=== PATIENT | male | born 1965 ===

== ENCOUNTER 2016-08-06 15:58 | Inpatient (IN) | payer MEDICAID ==
[2016-08-06 16:03] VITALS: BMI 31.0
[2016-08-06] MEDS ORDERED: Levalbuterol 1.25 MG/3 ML Inhal Soln UD IH STA ×2 (16:47)
[2016-08-06] MEDS ORDERED: Ipratropium 0.02% Inhal Soln (0.5 mg/2.5 ml) UD IH STA ×2 (16:47→16:48)
[2016-08-06] MEDS ORDERED: guaiFENesin 200 mg/10 ml Syrup UD PO STA (16:48)
[2016-08-06 17:08] LABS: ADD MANUAL DIFF? NO
[2016-08-06 17:10] LABS: BASO # 0.03 K/mm3 (0.0-2.0); BASO % 0.3 % (0.0-3.0); EOS # 0.3 (0.0-0.7); GRAN # 6.84 (1.4-6.5); GRAN % 72.2 % (50.0-68.0); HEMATOCRIT 38.3 % (42.0-52.0); LYMPH # 1.8 (1.2-3.4); LYMPH % 18.5 % (22.0-35.0); MEAN CELL VOLUME 87.2 fL (80.0-105.0); MEAN CORPUSCULAR HEMOGLOBIN 28.9 pg (25.0-35.0); MEAN CORPUSCULAR HGB CONC 33.2 g/dl (31.0-37.0); MEAN PLATELET VOLUME 9.4 fl (7.0-11.0); MONO # 0.6 (0.1-0.6); PLATELET COUNT 347 10^3/uL (120.0-450.0); RED CELL DISTRIBUTION WIDTH 12.4 % (11.5-14.5); WHITE BLOOD COUNT 9.5 10^3/ul (4.5-11.0)
--- NOTE | 2016-08-06 17:22 | ED PDOC ---
Arrival/HPI - General Chief Complaint: Shortness Of Breath Time Seen by Provider: 08/06/16 16:40 Historian: Patient - History of Present Illness Narrative History of Present Illness (Text): 08/06/16 17:19 Srinivasa Herman is a 50 year old male, with a history of diabetes, hypertension and hyperlipidemia, presents to the emergency department complaining of 2 day duration of shortness of breath associated with mild cough. Patient also complains of mild chest discomfort. Denies fever, chills, headache, dizziness, abdominal pain, nausea, vomiting, diarrhea, lower extremity edema, urinary symptoms or any other complaints at this time. Time/Duration: < week (2 days ) Symptom Onset: Gradual Symptom Course: Unchanged Severity Level: Mild Activities at Onset: Light Past Medical History - Provider Review Nursing Documentation Reviewed: Yes - Infectious Disease Hx of Infectious Diseases: None - Tetanus Immunization Tetanus Immunization: Unknown - Cardiac Hx Cardiac Disorders: No Hx Hypertension: Yes - Pulmonary Hx Chronic Obstructive Pulmonary Disease (COPD): No - Neurological HX Cerebrovascular Accident: No - HEENT Hx HEENT Disorder: Yes Hx Cataracts: Yes - Renal Hx Renal Failure: No - Endocrine/Metabolic Hx Diabetes Mellitus Type 2: Yes - Hematological/Oncological Hx Cancer: No - Integumentary Hx Dermatological Disorder: No - Musculoskeletal/Rheumatological Hx Arthritis: No Hx Rheumatoid Arthritis: No - Gastrointestinal Hx Gastroesophageal Reflux: No - Genitourinary/Gynecological Hx Genitourinary Disorders: No - Psychiatric Hx Substance Use: No - Past Surgical History Past Surgical History: No Previous - Anesthesia Hx Anesthesia: No Hx Anesthesia Reactions: No Hx Malignant Hyperthermia: No - Suicidal Assessment Feels Threatened In Home Enviroment: No Family/Social History - Physician Review Nursing Documentation Reviewed: Yes Family/Social History: No Known Family HX Smoking Status: Former Smoker Hx Alcohol Use: Yes (occasional) Hx Substance Use: No Hx Substance Use Treatment: No Allergies/Home Meds Allergies/Adverse Reactions: Allergies No Known Allergies Allergy (Verified 05/24/16 18:59) Review of Systems - Physician Review All systems were reviewed & negative as marked: Yes - Review of Systems Constitutional: Normal. absent: Fatigue, Fevers Respiratory: SOB, Cough. absent: Sputum Cardiovascular: Chest Pain (chest discomfort ) Gastrointestinal: Normal. absent: Abdominal Pain, Diarrhea, Nausea, Vomiting Genitourinary Male: Normal Neurological: Normal. absent: Headache, Dizziness Psychiatric: Normal Physical Exam Vital Signs Reviewed: Yes Vital Signs Temp Pulse Resp BP Pulse Ox 08/06/16 18:00 91 H 18 142/79 96 08/06/16 16:10 98.3 F 102 H 18 145/83 95 08/06/16 16:00 16 99 Temperature: Afebrile Blood Pressure: Hypertensive Pulse: Regular Respiratory Rate: Normal Appearance: Positive for: Well-Appearing, Non-Toxic, Comfortable Pain Distress: None Mental Status: Positive for: Alert and Oriented X 3 - Systems Exam Head: Present: Atraumatic, Normocephalic Pupils: Present: PERRL Conjunctiva: Present: Normal Respiratory/Chest: Present: Decreased Breath Sounds (air entry decreased with significantly decreased breath sounds at bases bilaterally ). No: Respiratory Distress, Accessory Muscle Use Cardiovascular: Present: Regular Rate and Rhythm, Normal S1, S2. No: Murmurs Abdomen: Present: Normal Bowel Sounds. No: Tenderness, Distention, Peritoneal Signs Neurological: Present: GCS=15, CN II-XII Intact, Speech Normal Skin: Present: Warm, Dry, Normal Color. No: Rashes Psychiatric: Present: Alert, Oriented x 3, Normal Insight, Normal Concentration Medical Decision Making ED Course and Treatment: 08/06/16 17:23 Impression: A 50 year old male who presents to the ed complaining of 2 day duration of shortness of breath associated with mild cough and chest discomfort. Differential Diagnosis include but are not limited to: Pneumonia vs. CHF vs. bronchitis vs. PE Plan: -- EKG -- labs, cardiac enzymes -- Drug screen -- Chest X-ray -- Atrovent -- Robitussin -- Xenopex -- Blood culture -- Urinalysis -- Reassess and disposition Progress Notes: 08/06/16 20:44 Labs show uncontrolled DM but no DKA with elevated BNP at 1210. Elevated d- dimer found; CTA of the chest shows pneumonia and b/L pleural effusions - will treat for pneumonia and CHF - case discussed with Dr. Erwin. Will admit to tele. 08/06/16 20:51 Reviewed radiology, CTA Chest shows: Pulmonary arteries: Bolus timing is suboptimal. There is no central pulmonary embolism to the level of the hilum, beyond which the bolus timing and motion artifact reduces the sensitivity and mid and distal pulmonary emboli cannot be adequately assessed. Aorta: No acute findings. No thoracic aortic aneurysm. Lungs: Perihilar and right upper lobe alveolar infiltrate is subtle. Dependent atelectasis in the bases. Pleural space: Moderate bilateral pleural effusions. Heart: Cardiomegaly. No significant pericardial effusion. No evidence of RV dysfunction. Bones/joints: No acute fracture. No dislocation. Soft tissues: Unremarkable. Lymph nodes: Unremarkable. No enlarged lymph nodes. IMPRESSION: 1. Moderate bilateral pleural effusions. 2. Perihilar and right upper lobe alveolar infiltrate is subtle. 3. Bolus timing is suboptimal. There is no central pulmonary embolism to the level of the hilum, beyond which the bolus timing and motion artifact reduces the sensitivity and mid and distal pulmonary emboli cannot be adequately assessed. 4. Cardiomegaly. Dictated and Authenticated by: Neo Tang MD - Lab Interpretations Lab Results: 08/06/16 16:10 08/06/16 16:10 Lab Results 08/06/16 18:35: Urine Color Yellow, Urine Appearance Clear, Urine pH 6.0, Ur Specific [place] 1.025, Urine Protein 100 H, Urine Glucose (UA) >=1000, Urine Ketones Trace H, Urine Blood Moderate H, Urine Nitrate Negative, Urine Bilirubin Negative, Urine Urobilinogen 0.2, Ur Leukocyte Esterase Negative, Urine RBC 1 - 3, Urine WBC 0 - 2, Ur Epithelial Cells 0 - 2, Urine Bacteria Trace, Urine Other Usperm, Urine Opiates Screen Negative, Urine Methadone Screen Negative, Ur Barbiturates Screen Negative, Ur Phencyclidine Scrn Negative , Ur Amphetamines Screen Negative, U Benzodiazepines Scrn Negative, U Oth Cocaine Metabols Negative, U Cannabinoids Screen Negative 08/06/16 16:10: WBC 9.5, RBC 4.39, Hgb 12.7 L, Hct 38.3 L, MCV 87.2, MCH 28.9, MCHC 33.2, RDW 12.4, Plt Count 347, MPV 9.4, Gran % 72.2 H, Lymph % (Auto) 18.5 L, [place] % (Auto) 6.0, Eos % (Auto) 3.0, Baso % (Auto) 0.3, Gran # 6.84 H, Lymph # 1.8, [place] # 0.6, Eos # 0.3, Baso # 0.03, PT 11.3, INR 1.05, APTT 26.7, D-Dimer , Quantitative 0.84 H, Sodium 134, Potassium 4.3, Chloride 102, Carbon Dioxide 24, Anion Gap 12, BUN 21, Creatinine 1.3, Est GFR ( Amer) > 60, Est GFR ( Non-Af Amer) 59, Random Glucose 379 H* D, Calcium 9.0, Total Bilirubin 0.5, AST 29, ALT 27, Alkaline Phosphatase 70, Lactate Dehydrogenase 420, Total Creatine Kinase 186, Troponin I < 0.01, NT-Pro-B Natriuret Pep 1210 H, Total Protein 6.5 , Albumin 3.4, Globulin 3.1, Albumin/Globulin Ratio 1.1, Lipase 47 I have reviewed the lab results: Yes - RAD Interpretation Radiology Orders: 08/06/16 16:46 CHEST TWO VIEWS (PA/LAT) [RAD] Stat 08/06/16 17:38 ANGIO CHEST PE PROTOCOL [CT] Stat Formwork Carpenter: ED Physician, Radiologist - EKG Interpretation Interpreted by ED Physician: Yes Type: 12 lead EKG - Medication Orders Current Medication Orders: Azithromycin (Zithromax 500mg In Ns) 250 mls @ 250 mls/hr IVPB STAT STA Stop: 08/06/16 21:30 Azithromycin (Zithromax 500mg In Ns) 250 mls @ 167 mls/hr IVPB DAILY MELVIN PRN Reason: Protocol Ceftriaxone Sodium (Rocephin 1 Gram Ivpb) 100 mls @ 100 mls/hr IVPB DAILY MELVIN PRN Reason: Protocol Discontinued Medications Furosemide (Lasix) 40 mg IVP STAT STA Stop: 08/06/16 20:27 Guaifenesin (Robitussin) 400 mg PO ONCE STA Stop: 08/06/16 16:49 Last Admin: 08/06/16 18:28 Dose: 400 MG Sodium Chloride (Sodium Chloride 0.9%) 1,000 mls @ 500 mls/hr IV .Q2H STA Stop: 08/06/16 19:37 Sodium Chloride (Sodium Chloride 0.9%) 1,000 mls @ 1,000 mls/hr IV .Q1H STA Stop: 08/06/16 18:37 Last Admin: 08/06/16 18:28 Dose: 1,000 MLS/HR eMAR Start Stop Document 08/06/16 18:28 EQ (Rec: 08/06/16 18:28 EQ [facility] [id number]) Intravenous Solution Start Date 08/06/16 Start Time 18:28 Ceftriaxone Sodium (Rocephin 1 Gram Ivpb) 100 mls @ 200 mls/hr IVPB STAT STA PRN Reason: Protocol Stop: 08/06/16 20:54 Iodixanol (Visipaque 320 Mg/Ml 100 Ml) Confirm Administered Dose 100 ml IV .STK- MED ONE Stop: 08/06/16 18:55 Ipratropium [place] (Atrovent) 0.5 mg IH STAT STA Stop: 08/06/16 16:48 Last Admin: 08/06/16 18:27 Dose: 0.5 MG Ipratropium [place] (Atrovent) 0.5 mg IH STAT STA Stop: 08/06/16 16:49 Last Admin: 08/06/16 18:27 Dose: 0.5 MG Levalbuterol HCl (Xopenex) 1.25 mg IH STAT STA Stop: 08/06/16 16:48 Last Admin: 08/06/16 18:27 Dose: 1.25 MG Levalbuterol HCl (Xopenex) 1.25 mg IH STAT STA Stop: 08/06/16 16:48 Last Admin: 08/06/16 18:27 Dose: 1.25 MG Methylprednisolone (Solu-Medrol) 125 mg IVP STAT STA Stop: 08/06/16 16:48 Last Admin: 08/06/16 18:27 Dose: 125 MG IVP Administration Document 08/06/16 18:27 EQ (Rec: 08/06/16 18:27 EQ [facility] [id number]) Charges for Administration # of IVP Administrations 1 - Scribe Statement The provider has reviewed the documentation as recorded by the Rubenibe Berta Nava Provider Attestation: All medical record entries made by the Devante were at my direction and personally dictated by me. I have reviewed the chart and agree that the record accurately reflects my personal performance of the history, physical exam, medical decision making, and the department course for this patient. I have also personally directed, reviewed, and agree with the discharge instructions and disposition. Disposition/Present on Arrival - Present on Arrival Any Indicators Present on Arrival: Yes History of DVT/PE: No History of Uncontrolled Diabetes: Yes Urinary Catheter: No History of Decub. Ulcer: No History Surgical Site Infection Following: None - Disposition Have Diagnosis and Disposition been Completed?: Yes Diagnosis: Pneumonia, Uncontrolled diabetes mellitus, Congestive heart failure (CHF) Disposition: HOSPITALIZED Disposition Time: 20:40 Patient Plan: Admission, Telemetry Patient Problems: Current Active Problems Problem Status Diagnosed Congestive heart failure (CHF) Acute Pneumonia Acute Uncontrolled diabetes mellitus Acute Condition: FAIR
[2016-08-06 17:24] LABS: D DIMER 0.84 mg/L FEU (0-0.50); INR 1.05 (0.93-1.08); PARTIAL THROMBOPLASTIN TIME 26.7 Seconds (23.7-30.8)
[2016-08-06 17:30] LABS: ALB/GLOB RATIO 1.1 (1.1-1.8); ALKALINE PHOSPHATASE 70 U/L (38-133); ALT/SGPT 27 U/L (7-56); AST/SGOT 29 U/L (15-59); BILIRUBIN,TOTAL 0.5 mg/dL (0.2-1.3); BLOOD UREA NITROGEN 21 mg/dL (7-21); CARBON DIOXIDE 24 mmol/L (21-33); CHLORIDE 102 mmol/L (98-107); GFR AFRICAN-AMERICAN > 60; LIPASE 47 U/L (23-300); POTASSIUM 4.3 mmol/L (3.6-5.0); SODIUM 134 mmol/L (132-148); TOTAL PROTEIN 6.5 g/dL (5.8-8.3)
[2016-08-06] MEDS ORDERED: Sodium Chloride 0.9% 1,000 ML IV STA ×2 (17:38→17:42)
[2016-08-06 17:43] LABS: TROPONIN I < 0.01 ng/mL
[2016-08-06 18:51] LABS: URINE BILIRUBIN NEGATIVE (NEGATIVE); URINE BLOOD MODERATE (NEGATIVE); URINE GLUCOSE (UA) >=1000 mg/dL (NEGATIVE); URINE KETONE TRACE mg/dL (NEGATIVE); URINE LEUKOCYTE ESTERASE NEGATIVE Leu/uL (NEGATIVE); URINE PROTEIN 100 mg/dL (<30 mg/dL); URINE UROBILINOGEN 0.2 E.U./dL (<1 E.U./dL)
[2016-08-06 18:52] LABS: URINE APPEARANCE CLEAR (CLEAR); URINE COLOR YELLOW (YELLOW)
[2016-08-06] MEDS ORDERED: Iodixanol 320 MG/ML 100 ML BOTTLE IV ONE (18:54)
[2016-08-06 18:55] LABS: URINE BACTERIA TRACE (NEG); URINE EPITHELIAL CELLS 0 - 2 /hpf (0-5); URINE WBC 0 - 2 /hpf (0-6)
[2016-08-06 19:19] LABS: GLUCOSE,RANDOM 379 mg/dL (70-110)
[2016-08-06] MEDS ORDERED: cefTRIAXone 1 gm 100 ML IVPB STA (20:25)
[2016-08-06] MEDS ORDERED: Azithromycin 500 MG in Azithromycin 500MG/NS 250ml 250 ML IVPB STA (20:26)
[2016-08-06] MEDS ORDERED: Azithromycin 500MG/NS 250ml 250 ML IVPB STA (20:31)
[2016-08-06] MEDS ORDERED: Insulin Regular 1 UNITS/0.01 ML ML SC ONE (21:30)
[2016-08-06] MEDS ORDERED: Albuterol-Ipratrop 3 mg / 0.5 (3 ml) UD IH PRN (21:32)
[2016-08-06] MEDS ORDERED: guaiFENesin 200 mg/10 ml Syrup UD PO PRN (21:32)
--- NOTE | 2016-08-06 22:10 | CP.PCM.HP ---
<FabricioeddyOsmany - Last Filed: 08/06/16 22:35> History of Present Illness - History of Present Illness History of Present Illness: cc: Shortness of breath HPI: Patient is a 50yo male with past medical history of hypertension, hyperlipidemia and diabetes mellitus type 2 that presents c/o shortness of breath for the past 3 days. Patient reports that the shortness of breath is associated with a nonproductive cough that has made it difficult for him to sleep at night. He also reported some mild chest discomfort and palpitations that started on Sunday but had since resolved. Patient stated that he tried using cough syrup but it provided minimal relief. Patient denied fever, chills, nausea, vomitting, abdominal pain, focal weakness, numbness, tingling, sick contacts, recent travel. On arrival to the ED, patient's vitals were as follows : temperature 98.3F, heart rate 102bpm, blood pressure 145/83, RR 18, O2 sat 95 % on room air. Labs were notable for a d-dimer of 0.84, NT-proBNP of 1210 and glucose of 379. A CTA was done and revealed moderate bilateral pleural effusions , perihilar and RUL alveolar infiltrate, no apparent central PE and cardiomegaly. An echocardiogram from 05/16/2016 was reviewed and revealed an LVEF of 52%. 12 point ROS as per HPI above otherwise negative PMHx: DM2, HTN, HLD PSHx: Denied Family Hx: Mother: ID; Father: DM, HTN Social Hx: Denied tobacco, alcohol and illicit drug use; however, prior records indicate he was a former smoker and drinker; Allergies: NKDA Present on Admission - Present on Admission Any Indicators Present on Admission: Yes History of Uncontrolled Diabetes: Yes Past Patient History - Infectious Disease Hx of Infectious Diseases: None - Tetanus Immunizations Tetanus Immunization: Unknown - Past Social History Smoking Status: Former Smoker - CARDIAC Hx Cardiac Disorders: No Hx Hypertension: Yes - PULMONARY Hx Chronic Obstructive Pulmonary Disease (COPD): No - NEUROLOGICAL HX Cerebrovascular Accident: No - HEENT Hx HEENT Problems: Yes Hx Cataracts: Yes - RENAL Hx Renal Failure: No - ENDOCRINE/METABOLIC Hx Diabetes Mellitus Type 2: Yes - HEMATOLOGICAL/ONCOLOGICAL Hx Cancer: No - INTEGUMENTARY Hx Dermatological Problems: No - MUSCULOSKELETAL/RHEUMATOLOGICAL Hx Arthritis: No Hx Rheumatoid Arthritis: No - GASTROINTESTINAL Hx Gastroesophageal Reflux: No - GENITOURINARY/GYNECOLOGICAL Hx Genitourinary Disorders: No - PSYCHIATRIC Hx Substance Use: No - SURGICAL HISTORY Hx Surgeries: No - ANESTHESIA Hx Anesthesia: No Hx Anesthesia Reactions: No Hx Malignant Hyperthermia: No Meds Allergies/Adverse Reactions: Allergies Allergy/AdvReac Type Severity Reaction Status Date / Time No Known Allergies Allergy Verified 05/24/16 18:59 Physical Exam - Constitutional Appears: No Acute Distress - Head Exam Head Exam: ATRAUMATIC, NORMAL INSPECTION, NORMOCEPHALIC - Eye Exam Eye Exam: EOMI, PERRL. absent: Conjunctival injection, Scleral icterus - ENT Exam ENT Exam: Mucous Membranes Moist - Neck Exam Neck exam: Positive for: Normal Inspection. Negative for: Lymphadenopathy, Tenderness, Thyromegaly - Respiratory Exam Respiratory Exam: Decreased Breath Sounds (decreased breath sounds at lung bases bilaterally), NORMAL BREATHING PATTERN. absent: Chest Wall Tenderness, Rales, Rhonchi, Wheezes - Cardiovascular Exam Cardiovascular Exam: Tachycardia, +S1, +S2. absent: Clicks, Gallop, JVD, Rubs - GI/Abdominal Exam GI & Abdominal Exam: Distended, Normal Bowel Sounds, Soft. absent: Firm, Guarding, Rebound, Tenderness - Extremities Exam Extremities exam: Positive for: normal inspection. Negative for: calf tenderness, pedal edema, tenderness - Neurological Exam Neurological exam: Alert, CN II-XII Intact, Oriented x3 - Psychiatric Exam Psychiatric exam: Normal Affect, Normal Mood - Skin Skin Exam: Dry, Intact, Normal Color, Warm Results - Vital Signs Recent Vital Signs: Last Vital Signs Temp 98.3 F 08/06/16 16:10 Pulse 91 H 08/06/16 18:00 Resp 18 08/06/16 18:00 BP 142/79 08/06/16 18:00 Pulse Ox 96 08/06/16 18:00 - Labs Result Diagrams: 08/06/16 16:10 08/06/16 16:10 Labs: Laboratory Results - last 24 hr 08/06/16 08/06/16 16:10 18:35 WBC 9.5 RBC 4.39 Hgb 12.7 L Hct 38.3 L MCV 87.2 MCH 28.9 MCHC 33.2 RDW 12.4 Plt Count 347 MPV 9.4 Gran % 72.2 H Lymph % (Auto) 18.5 L [place] % (Auto) 6.0 Eos % (Auto) 3.0 Baso % (Auto) 0.3 Gran # 6.84 H Lymph # 1.8 [place] # 0.6 Eos # 0.3 Baso # 0.03 PT 11.3 INR 1.05 APTT 26.7 D-Dimer, Quantitative 0.84 H Sodium 134 Potassium 4.3 Chloride 102 Carbon Dioxide 24 Anion Gap 12 BUN 21 Creatinine 1.3 Est GFR ( Amer) > 60 Est GFR (Non-Af Amer) 59 Random Glucose 379 H* D Calcium 9.0 Total Bilirubin 0.5 AST 29 ALT 27 Alkaline Phosphatase 70 Lactate Dehydrogenase 420 Total Creatine Kinase 186 Troponin I < 0.01 NT-Pro-B Natriuret Pep 1210 H Total Protein 6.5 Albumin 3.4 Globulin 3.1 Albumin/Globulin Ratio 1.1 Lipase 47 Urine Color Yellow Urine Appearance Clear Urine pH 6.0 Ur Specific [place] 1.025 Urine Protein 100 H Urine Glucose (UA) >=1000 Urine Ketones Trace H Urine Blood Moderate H Urine Nitrate Negative Urine Bilirubin Negative Urine Urobilinogen 0.2 Ur Leukocyte Esterase Negative Urine RBC 1 - 3 Urine WBC 0 - 2 Ur Epithelial Cells 0 - 2 Urine Bacteria Trace Urine Other Usperm Urine Opiates Screen Negative Urine Methadone Screen Negative Ur Barbiturates Screen Negative Ur Phencyclidine Scrn Negative Ur Amphetamines Screen Negative U Benzodiazepines Scrn Negative U Oth Cocaine Metabols Negative U Cannabinoids Screen Negative Assessment & Plan - Assessment and Plan (Free Text) Assessment: 50yo male with history of hypertension, hyperlipidemia and diabetes mellitus type 2 presents c/o shortness of breath and nonproductive cough for past 3 days. Plan: 1. Shortness of breath likely 2/2 CAP and mild CHF exacerbation -afebrile, no leukocytosis -NT-ProBNP 1210; Troponin negative x1, will trend -CTA reviewed; no evidence of PE, bilateral pleural effusions, RUL infiltrate -Echocardiogram from 05/2016 reviewed; LVEF 52% -procalcitonin pending -blood,urine and sputum cultures pending -Continue with Rocephin/azithromycin for CAP -Continue with lasix 40mg qD -Continue with robitussin/duoneb PRN 2. Hypertension -Continue with home med lisinopril 3. Hyperlipidemia -Continue with home med lipitor 4. DM type 2 -Humulin med dose ISS -Consistent carb diet -Fingersticks ACHS 5. GI/DVT prophylaxis -Protonix/lovenox Patient seen and case discussed with attending, Dr. Erwin - Date & Time Date: 08/06/16 Time: 22:22 <Salomón Erwin - Last Filed: 08/07/16 05:32> Results - Vital Signs Recent Vital Signs: Last Vital Signs Temp 98.3 F 08/06/16 16:10 Pulse 89 08/07/16 03:56 Resp 17 08/07/16 03:56 BP 156/86 H 08/07/16 03:56 Pulse Ox 98 08/07/16 03:56 - Labs Result Diagrams: 08/06/16 16:10 08/06/16 16:10 Labs: Laboratory Results - last 24 hr 08/06/16 08/06/16 23:30 23:50 Lactic Acid 3.5 H Lactate Dehydrogenase 398 Total Creatine Kinase 163 Troponin I < 0.01 Attending/Attestation - Attestation I have personally seen and examined this patient.: Yes I have fully participated in the care of the patient.: Yes I have reviewed all pertinent clinical information: Yes Notes (Text): 08/07/16 05:29 Patient was seen when he was in bed # 20 in the ER. Agree with history , physical examination ,assessment and plan. Patient is obese,gives history of bilateral knee arthritis, history of GERD , history of TIA in past May.
[2016-08-06] MEDS ORDERED: Insulin Regular 1 UNITS/0.01 ML ML SC STA (22:12)
[2016-08-06] MEDS: Insulin Reg-MEDIUM-Coverage SC SCH (23:53)
[2016-08-07 00:37] LABS: TROPONIN I < 0.01 ng/mL
[2016-08-07] MEDS ORDERED: Insulin Regular 1 UNITS/0.01 ML ML SC STA (01:15)
[2016-08-07 06:26] LABS: ADD MANUAL DIFF? NO
[2016-08-07 06:30] LABS: BASO # 0.01 K/mm3 (0.0-2.0); BASO % 0.1 % (0.0-3.0); GRAN # 11.96 (1.4-6.5); GRAN % 90.4 % (50.0-68.0); LYMPH # 0.9 (1.2-3.4); LYMPH % 6.6 % (22.0-35.0); MEAN CELL VOLUME 84.8 fL (80.0-105.0); MEAN CORPUSCULAR HEMOGLOBIN 29.7 pg (25.0-35.0); MEAN PLATELET VOLUME 9.3 fl (7.0-11.0); MONO # 0.4 (0.1-0.6); MONO % 2.9 % (1.0-6.0); PLATELET COUNT 355 10^3/uL (120.0-450.0); RED CELL DISTRIBUTION WIDTH 12.2 % (11.5-14.5); WHITE BLOOD COUNT 13.2 10^3/ul (4.5-11.0)
[2016-08-07 07:02] LABS: ALKALINE PHOSPHATASE 81 U/L (38-133); ALT/SGPT 22 U/L (7-56); AST/SGOT 36 U/L (15-59); BILIRUBIN,TOTAL 0.5 mg/dL (0.2-1.3); BLOOD UREA NITROGEN 36 mg/dL (7-21); CALCIUM 9.2 mg/dL (8.4-10.5); CARBON DIOXIDE 20 mmol/L (21-33); CHLORIDE 105 mmol/L (98-107); GFR AFRICAN-AMERICAN > 60; GLUCOSE,RANDOM 277 mg/dL (70-110); MAGNESIUM 1.6 mg/dL (1.7-2.2); PHOSPHOROUS 3.4 mg/dL (2.5-4.5); POTASSIUM 4.4 mmol/L (3.6-5.0); SODIUM 139 mmol/L (132-148); TOTAL PROTEIN 7.1 g/dL (5.8-8.3)
[2016-08-07 07:09] LABS: TROPONIN I 0.02 ng/mL
--- NOTE | 2016-08-07 09:07 | RAD ---
HISTORY: sob COMPARISON: No prior. TECHNIQUE: Chest PA and lateral FINDINGS: LUNGS: No active pulmonary disease. PLEURA: No significant pleural effusion identified. No pneumothorax apparent. CARDIOVASCULAR: Normal. OSSEOUS STRUCTURES: No significant abnormalities. VISUALIZED UPPER ABDOMEN: Normal. OTHER FINDINGS: None. IMPRESSION: No active disease.
--- NOTE | 2016-08-07 09:52 | CT ---
PROCEDURE: CT Chest with contrast (Pulmonary Angiogram) HISTORY: sob - r/o PE COMPARISON: None available. TECHNIQUE: Axial computed tomography images were obtained of the chest in the pulmonary arterial phase of enhancement. Coronal and sagittal reformatted images were created and reviewed. Intravenous contrast dose: 100 cc of Visipaque Radiation dose: Total exam DLP = 664 mGy-cm. FINDINGS: PULMONARY ARTERIES: Bolus timing is less than optimal. There are no central emboli seen. Small distal emboli cannot be excluded AORTA: No acute findings. No thoracic aortic aneurysm. LUNGS: Minimal bibasilar consolidation adjacent to pleural effusions PLEURAL SPACES: Small bilateral pleural effusions are seen HEART: Unremarkable. No cardiomegaly. No significant pericardial effusion. LYMPH NODES: No lymphadenopathy. BONES, CHEST WALL: Unremarkable. No fracture or destructive lesion OTHER FINDINGS: The report concurs with the preliminary [facility] report IMPRESSION: No evidence of pulmonary embolus. Small bilateral pleural effusions
[2016-08-07] MEDS: Enoxaparin 40 mg Syringe SC SCH (10:59)
[2016-08-07] MEDS: Azithromycin 500MG/NS 250ml 250 ML IVPB SCH (11:00)
[2016-08-07] MEDS: Insulin Reg-MEDIUM-Coverage SC SCH ×4 (11:04→22:30)
[2016-08-07] MEDS ORDERED: Insulin Regular 1 UNITS/0.01 ML ML ONE (11:04)
--- NOTE | 2016-08-07 11:59 | CARD ---
APPROVED REPORT EKG Measurement Heart [id number] <Conclusion> Sinus tachycardia Possible Left atrial enlargement Nonspecific T wave abnormality Abnormal ECG
[2016-08-07 13:06] LABS: ARTERIAL BLOOD GAS HCO3 17.7 mmol/L (21-28); ARTERIAL BLOOD GAS O2 CAPACITY 18.2 mL/dl (16-24); ARTERIAL BLOOD GAS O2 CONTENT 17.5 ML/dl (15-23); ARTERIAL BLOOD GAS PH 7.44 (7.35-7.45); ARTERIAL BLOOD HGB O2 SAT 93.9 % (95.0-98.0); CARBOXYHEMOGLOBIN 1.8 % (0.5-1.5); HHB 3.6 % (0-5); METHEMOGLOBIN 0.7 % (0.0-3.0)
[2016-08-07] MEDS: cefTRIAXone 1 gm 100 ML IVPB SCH (13:15)
--- NOTE | 2016-08-07 15:24 | CP.PCM.PN ---
<Zhanna Nieves - Last Filed: 08/07/16 15:58> Subjective - Date & Time of Evaluation Date of Evaluation: 08/07/16 Time of Evaluation: 12:00 - Subjective Subjective: Hospitalist progress note for Dr. Bell Pt s/e at bedside in the ER this AM. Patient states that his SOB is improved since lasix was administered in the ED. Patient was observed ambulating without any distress, instability, or dysfunctional gait. Patient reports persistent cough which is improving, chronic numbness and tingling in his lower extremities BL, but denies any chest pain, palpitations, dizziness, light headedness, fevers, chills, night sweats, calf pain or swelling, nausea, vomiting, abdominal pain, or any other symptoms. Admits that when he checks his blood glucose levels at home he is sometimes over 300 after eating a meal. He is supposed to see his PMD, Dr. Corona Moyer, to address his insulin regimen later this month. Also admitted that he used to use an inhaler after an episode of bronchitis for which he was hospitalized years ago, though there is not record of this event in his chart. Objective - Vital Signs/Intake and Output Vital Signs (last 24 hours): Temp Pulse Resp BP Pulse Ox 98.3 F 108 H 17 166/100 H 97 08/06/16 16:10 08/07/16 11:37 08/07/16 11:37 08/07/16 11:37 08/07/16 11:37 - Medications Medications: Current Medications Albuterol/Ipratropium (Duoneb 3 Mg/0.5 Mg (3 Ml) Ud) 3 ml IH [id number] PRN PRN Reason: Shortness of Breath Aspirin (Aspirin Chewable) 81 mg PO DAILY [facility] Last Admin: 08/07/16 10:57 Dose: 81 mg Atorvastatin Calcium (Lipitor) 40 mg PO DIN [facility] Enoxaparin Sodium (Lovenox) 40 mg SC DAILY [facility] PRN Reason: Protocol Last Admin: 08/07/16 10:59 Dose: 40 mg Furosemide (Lasix) 40 mg IVP DAILY [facility] Last Admin: 08/07/16 11:01 Dose: 40 mg Guaifenesin (Robitussin) 200 mg PO Q4H PRN PRN Reason: Cough and congestion Last Admin: 08/07/16 11:06 Dose: 200 mg Hydralazine HCl (Apresoline) 10 mg IVP STAT [facility] Last Admin: 08/06/16 22:39 Dose: 10 mg Azithromycin (Zithromax 500mg In Ns) 250 mls @ 167 mls/hr IVPB DAILY [facility] PRN Reason: Protocol Last Admin: 08/07/16 11:00 Dose: 167 mls/hr Ceftriaxone Sodium (Rocephin 1 Gram Ivpb) 100 mls @ 100 mls/hr IVPB DAILY [facility] PRN Reason: Protocol Last Admin: 08/07/16 13:15 Dose: 100 mls/hr Insulin Detemir (Levemir) 14 unit SC BID [facility] Insulin Human Regular (Humulin R Med) 0 units SC ACHS [facility] PRN Reason: Protocol Last Admin: 08/07/16 11:38 Dose: 7 units Lisinopril (Zestril) 40 mg PO DAILY [facility] Last Admin: 08/07/16 11:36 Dose: 40 mg Pantoprazole Sodium (Protonix Inj) 40 mg IVP DAILY [facility] Last Admin: 08/07/16 11:00 Dose: 40 mg - Labs Labs: 08/07/16 06:00 08/07/16 06:00 PT 11.3 Seconds (9.9-11.8) 08/06/16 16:10 INR 1.05 (0.93-1.08) 08/06/16 16:10 APTT 26.7 Seconds (23.7-30.8) 08/06/16 16:10 - Constitutional Appears: Well, Non-toxic, No Acute Distress - Head Exam Head Exam: ATRAUMATIC - Eye Exam Eye Exam: Normal appearance - ENT Exam ENT Exam: Mucous Membranes Moist, Normal Oropharynx - Respiratory Exam Respiratory Exam: Decreased Breath Sounds (lower lung field BL), NORMAL BREATHING PATTERN. absent: Accessory Muscle Use, Wheezes, Respiratory Distress - Cardiovascular Exam Cardiovascular Exam: Tachycardia, RRR, +S1, +S2 - GI/Abdominal Exam GI & Abdominal Exam: Soft. absent: Distended, Tenderness - Extremities Exam Extremities Exam: absent: Calf Tenderness, Pedal Edema, Tenderness Additional comments: Mild cellulitis and erythema of the lower leg greater on the right than the left - Back Exam Back Exam: absent: CVA tenderness (L), CVA tenderness (R) - Neurological Exam Neurological Exam: Alert, Awake, Oriented x3 - Psychiatric Exam Psychiatric exam: Normal Affect, Normal Mood - Skin Skin Exam: Intact, Normal Color, Warm Assessment and Plan - Assessment and Plan (Free Text) Assessment: 50yo male with history of hypertension, hyperlipidemia and diabetes mellitus type 2 presents c/o shortness of breath and nonproductive cough for past 3 days. Plan: 1. Shortness of breath due to CHF exacerbation vs pneumonia vs PE -afebrile, tachycardic -WBC increased to 13.2 up from 9.5 yesterday -NT-ProBNP 1210; Troponin negative x3 -CTA reviewed Final report: no evidence of PE, bilateral pleural effusions, no other active disease -Echocardiogram from 05/2016 reviewed; LVEF 52% -ABG this afternoon: pH: 7.44, CO2 26, PO2 74, HCO3: 17.1 -procalcitonin not elevated -blood, urine and sputum cultures pending, legionella antigen negative -Continue with Rocephin/azithromycin for CAP -Continue with lasix 40mg qD -Continue with robitussin/duoneb PRN -Cardiology consulted for possible CHF 2. Hyperglycemia, possible DKA -Lactic acid 3.5, repeat LA pending -anion gap 14 -glucose 379 at admit, up to 435 overnight, 277 this AM -ABG this afternoon: pH: 7.44, CO2 26, PO2 74, HCO3: 17.1 -Diabetic control as outlined below -repeat BMP pending 3. DVT -elevated d-dimer -BL LE US pending 4. Hypertension -Continue with home med lisinopril 5. Hyperlipidemia -Continue with home med lipitor 6. DM type 2 -Humulin med dose ISS -levemir 14 BID -Consistent carb diet -Fingersticks ACHS 7. Hypomagnesemia -MG 1.6 -Mg sulfate supplementation -repeat Mg tomorrow AM 7. GI/DVT prophylaxis -Protonix/lovenox <Ray EASTON,Cameron - Last Filed: 08/08/16 07:27> Objective - Vital Signs/Intake and Output Vital Signs (last 24 hours): Temp Pulse Resp BP Pulse Ox 98 F 100 H 18 150/93 H 98 08/08/16 06:00 08/08/16 06:00 08/08/16 06:00 08/08/16 06:00 08/08/16 00:01 - Medications Medications: Current Medications Albuterol/Ipratropium (Duoneb 3 Mg/0.5 Mg (3 Ml) Ud) 3 ml IH [id number] PRN PRN Reason: Shortness of Breath Aspirin (Aspirin Chewable) 81 mg PO DAILY [facility] Last Admin: 08/07/16 10:57 Dose: 81 mg Atorvastatin Calcium (Lipitor) 40 mg PO DIN [facility] Last Admin: 08/07/16 18:03 Dose: 40 mg Diphenhydramine HCl (Benadryl) 25 mg PO HS PRN PRN Reason: Insomnia Last Admin: 08/08/16 01:46 Dose: 25 mg Enoxaparin Sodium (Lovenox) 40 mg SC DAILY [facility] PRN Reason: Protocol Last Admin: 08/07/16 10:59 Dose: 40 mg Furosemide (Lasix) 40 mg IVP DAILY [facility] Last Admin: 08/07/16 11:01 Dose: 40 mg Guaifenesin (Robitussin) 200 mg PO Q4H PRN PRN Reason: Cough and congestion Last Admin: 08/07/16 11:06 Dose: 200 mg Hydralazine HCl (Apresoline) 10 mg IVP STAT [facility] Last Admin: 08/07/16 22:30 Dose: Not Given Azithromycin (Zithromax 500mg In Ns) 250 mls @ 167 mls/hr IVPB DAILY [facility] PRN Reason: Protocol Last Admin: 08/07/16 11:00 Dose: 167 mls/hr Ceftriaxone Sodium (Rocephin 1 Gram Ivpb) 100 mls @ 100 mls/hr IVPB DAILY [facility] PRN Reason: Protocol Last Admin: 08/07/16 13:15 Dose: 100 mls/hr Insulin Detemir (Levemir) 14 unit SC BID [facility] Last Admin: 08/07/16 18:02 Dose: 14 unit Insulin Human Regular (Humulin R Med) 0 units SC ACHS [facility] PRN Reason: Protocol Last Admin: 08/07/16 22:30 Dose: 1 units Lisinopril (Zestril) 40 mg PO DAILY [facility] Last Admin: 08/07/16 11:36 Dose: 40 mg Pantoprazole Sodium (Protonix Inj) 40 mg IVP DAILY [facility] Last Admin: 08/07/16 11:00 Dose: 40 mg - Labs Labs: 08/08/16 06:40 08/07/16 15:55 PT 11.3 Seconds (9.9-11.8) 08/06/16 16:10 INR 1.05 (0.93-1.08) 08/06/16 16:10 APTT 26.7 Seconds (23.7-30.8) 08/06/16 16:10 Attending/Attestation - Attestation I have personally seen and examined this patient.: Yes I have fully participated in the care of the patient.: Yes I have reviewed all pertinent clinical information, including history, physical exam and plan: Yes Notes (Text): Patient was seen and examined with medical care manager . Patient dyspnea is likely due to diastolic CHF exacerbation, was given IV lasix , already started feeling better.Procalcitonin level is normal, antibiotics can be discontinued if cultures are negative and lactic acid is back to normal. Patient is not in DKA, has uncontrol DM as he did not get his morning Levemir, CO2 is normal, no acidosis on abg. Lactic acid was high, etiology unclear, does not seem to sepstic, will continue holding Metfornin.Repeat lactic acid level is back to normal. Management plan was discussed in detail with patient Education was provided.
[2016-08-07] MEDS ORDERED: Sodium Chloride 0.9% 1,000 ML IV SCH (15:30)
[2016-08-07] MEDS ORDERED: Magnesium Sulfate 2 GM in Sodium Chloride 0.9% 100 ML IVPB ONE (16:21)
[2016-08-07] MEDS: Insulin Detemir 100 units/ml Vial (Levemir) SC SCH (18:02)
[2016-08-07 18:52] LABS: BLOOD UREA NITROGEN 35 mg/dL (7-21); CARBON DIOXIDE 22 mmol/L (21-33); CHLORIDE 102 mmol/L (98-107); GFR AFRICAN-AMERICAN > 60; GLUCOSE,RANDOM 292 mg/dL (70-110); SODIUM 135 mmol/L (132-148)
--- NOTE | 2016-08-07 21:19 | US ---
HISTORY: Leg pain and swelling. Evaluate for DVT PHYSICIAN(S): Srinivasan Rodríguez MD. TECHNIQUE: Duplex sonography and color-flow Doppler with graded compression were used to evaluate the deep venous systems of both lower extremities. FINDINGS: The visualized deep venous systems of both lower extremities are sonographically normal and compressible. Normal wave forms and augmentation are seen. There is no sonographic evidence for deep venous thrombosis in the visualized segments of both lower extremities. IMPRESSION: No sonographic evidence for deep venous thrombosis in the visualized segments of both lower extremities.
[2016-08-08 07:01] LABS: ADD MANUAL DIFF? NO
[2016-08-08 07:07] LABS: BASO # 0.03 K/mm3 (0.0-2.0); BASO % 0.3 % (0.0-3.0); EOS # 0.4 (0.0-0.7); EOS % 4.1 % (1.5-5.0); GRAN % 63.7 % (50.0-68.0); HEMATOCRIT 37.7 % (42.0-52.0); LYMPH # 2.5 (1.2-3.4); MEAN CELL VOLUME 85.9 fL (80.0-105.0); MEAN CORPUSCULAR HEMOGLOBIN 29.4 pg (25.0-35.0); MEAN CORPUSCULAR HGB CONC 34.2 g/dl (31.0-37.0); MEAN PLATELET VOLUME 9.5 fl (7.0-11.0); MONO % 8.9 % (1.0-6.0); PLATELET COUNT 348 10^3/uL (120.0-450.0); RED CELL DISTRIBUTION WIDTH 12.6 % (11.5-14.5); WHITE BLOOD COUNT 10.7 10^3/ul (4.5-11.0)
[2016-08-08 07:24] LABS: ALKALINE PHOSPHATASE 73 U/L (38-133); ALT/SGPT 22 U/L (7-56); AST/SGOT 27 U/L (15-59); BILIRUBIN,TOTAL 0.6 mg/dL (0.2-1.3); BLOOD UREA NITROGEN 38 mg/dL (7-21); CALCIUM 8.4 mg/dL (8.4-10.5); CARBON DIOXIDE 23 mmol/L (21-33); CHLORIDE 105 mmol/L (98-107); CHOLESTEROL 173 mg/dL (130-200); GFR AFRICAN-AMERICAN > 60; GLUCOSE,RANDOM 232 mg/dL (70-110); MAGNESIUM 2.2 mg/dL (1.7-2.2); PHOSPHOROUS 4.2 mg/dL (2.5-4.5); SODIUM 137 mmol/L (132-148); TOTAL PROTEIN 6.2 g/dL (5.8-8.3)
--- NOTE | 2016-08-08 08:05 | CON ---
DATE: 08/07/2016 REASON FOR CONSULTATION: Shortness of breath, cardiac evaluation. BRIEF CLINICAL HISTORY: This is a 50-year-old male with past medical history significant for hyperte nsion, hyperlipidemia, diabetes, obesity, came in with 2-3 days history of shortness of breath, cough ing and bringing some phlegm, unable to lay flat and gets short winded. CAT scan was done and reveal ed moderate bilateral pleural effusion, perihilar right upper lobe infiltrate. The patient denies an y chest pain, shortness of breath, any palpitation. PAST MEDICAL HISTORY: Significant for diabetes, hypertension, hyperlipidemia. SOCIAL HISTORY: Denies any smoking. Denies any history of alcohol abuse. Used to smoke a very long time, ____ years ago quit. On disability. Not working now. 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 FAMILY HISTORY: Significant for coronary artery disease, hypertension, hyperlipidemia. ALLERGIES: No known drug allergy. CURRENT MEDICATIONS: The patient is taking at home lisinopril 40 mg, insulin 14 units, atorvastatin 40, aspirin 81 mg. PREVIOUS CARDIAC WORKUP: The patient had echocardiography done on 05/16/2016 that showed ejection fr action 52%, read as normal; diastolic dysfunction, normal mitral valve structure, mild tricuspid regu rgitation, right ventricular systolic pressure of 32. The right ventricle shows normal size, normal thickness. ____ IMPRESSION: Possible pneumonia, possible pleural effusion. Cannot rule out underlying coronary artery disease because of multiple risk factors for coronary artery disease. ____ REVIEW OF SYSTEMS: As per HPI. PHYSICAL EXAMINATION: VITAL SIGNS: Temperature afebrile, heart rate 108, blood pressure is 164/100. HEENT: PERRLA. Extraocular muscles intact. NECK: Supple. No carotid bruits. No thyromegaly. CHEST: Clear to auscultation. HEART: S1, S2 regular. ABDOMEN: Soft. EXTREMITIES: Clubbing and cyanosis negative. BLOOD WORKUP: WBC 13.2, hemoglobin 13.3, hematocrit 38, platelet count 355. Chemistry shows sodium 130, potassium 4.____, chloride 105, carbon dioxide 20, anion gap of 15, BUN 36, creatinine 1.4. Tro ponin 0.01. EKG shows normal sinus pauses, sinus tachycardia. IMPRESSION: Diabetes, hypertension, hyperlipidemia, obesity, body mass index 31 kg/m2. Normal echoc ardiogram, ejection fraction preserved. Pleural effusion and pulmonary infiltrate. WBC elevated. RECOMMENDATIONS: Will give broad spectrum antibiotic, give gentle diuretics, beta brandy, control b lood pressure. DVT prophylaxis. Will follow. Considered a stress test in a day or 2 when the patie nt is stable, probably Sunday. Will follow with you. Thank you, Dr. Ureña, for providing the opportunity in taking care of the patient. Will get a stress test when the patient is relatively stable, and he may get better and get more diuresis so LV functio n can be assessed. Admitting BNP yesterday was 1210, but will repeat in the morning lipid profile, T SH, hemoglobin A1c. Thank you, Dr. Ureña, for providing us the opportunity in taking care of this patient. Cameron Yoo MD cc: [id number] TT: 08/07/2016 17:39:27 Confirmation # [id number] Dictation # [id number] mn
[2016-08-08] MEDS: Insulin Reg-MEDIUM-Coverage SC SCH ×4 (08:19→22:00)
[2016-08-08] MEDS: Enoxaparin 40 mg Syringe SC SCH (09:24)
[2016-08-08] MEDS: Insulin Detemir 100 units/ml Vial (Levemir) SC SCH ×2 (09:28→17:23)
[2016-08-08] MEDS: cefTRIAXone 1 gm 100 ML IVPB SCH (09:29)
[2016-08-08] MEDS: Azithromycin 500MG/NS 250ml 250 ML IVPB SCH (09:30)
--- NOTE | 2016-08-08 10:58 | PN ---
DATE: 08/08/2016 REASON FOR CONSULTATION: Shortness of breath, cardiac evaluation. BRIEF CLINICAL HISTORY: A 50-year-old male with past medical history significant for hypertension, h yperlipidemia, diabetes, obesity, came in with a complaint of 2-3 days of shortness of breath, coughi ng, bringing some phlegm. The patient unable to lie flat on the bed. CAT scan revealed moderate [place] ateral pleural effusion, perihilar right upper lobe infiltrate. The patient is currently on Lasix an d antibiotic, feels better. PHYSICAL EXAMINATION: VITAL SIGNS: Temperature afebrile, heart rate 95, blood pressure 150/93. HEENT: PERRLA. Extraocular muscles intact. NECK: Supple. No carotid bruits. No thyromegaly. CHEST: Clear to auscultation. HEART: S1, S2 regular. ABDOMEN: Soft. EXTREMITIES: Clubbing and cyanosis negative. LABORATORY DATA: Blood workup as follows: WBC 10.7, hemoglobin 12.9, hematocrit 37.7 and platelet c ount 348. Chemistry shows sodium 130, potassium 4, chloride 105, carbon dioxide 23, anion gap of 13, BUN 38, creatinine 1.3. BNP 1470. Troponin negative. IMPRESSION: So far, no evidence of acute coronary syndrome. Bilateral, pleural effusion, pulmonary infiltrate, pneumonia, diabetes, hypertension, hyperlipidemia, obesity, increased body mass index. The patient had echocardiography 05/16/2016 showed ejection fraction 52% with normal left ventricular function, diastolic dysfunction, normal mitral valve area, ____, mild tricuspid regurgitation, right ventricular systolic pressure of 32. Elevated blood pressure, diabetes, hypertension, hyperlipidemia , pneumonia, pleural effusion. RECOMMENDATION: Continue IV Lasix. Continue antibiotic. When the patient's breathing improves, con supervisor press room stress test in a day or 2. Continue DVT prophylaxis. Continue atorvastatin. Magnesium was ontiveros pplemented yesterday. Repeat the chest x-ray today. We will follow with you. Probably in a day or 2, we will schedule a stress test because of multiple risk factors for coronary artery disease and ri sk stratification. We will do a stress test probably on and we will repeat chest x-ray toda y, PA and lateral. Continue IV Lasix. Continue antibiotic. Thank you, Dr. Ureña, for providing us the opportunity in taking care of the patient. Cameron Yoo MD cc: [id number] TT: 08/08/2016 10:58:10 Confirmation # [id number] Dictation # [id number] tn
--- NOTE | 2016-08-08 13:29 | CP.PCM.PN ---
<JeremyGris - Last Filed: 08/08/16 13:22> Subjective - Date & Time of Evaluation Date of Evaluation: 08/08/16 Time of Evaluation: 13:22 - Subjective Subjective: Progress note for Hospitalist Pt s&e with attending. MARTHA. Denies F/C/n/V/D/CP/SOB. Breathing improved. No complaints. Objective - Vital Signs/Intake and Output Vital Signs (last 24 hours): Temp Pulse Resp BP Pulse Ox 97.1 F L 107 H 20 151/67 H 98 08/08/16 12:00 08/08/16 12:00 08/08/16 12:00 08/08/16 12:00 08/08/16 00:01 - Medications Medications: Current Medications Albuterol/Ipratropium (Duoneb 3 Mg/0.5 Mg (3 Ml) Ud) 3 ml IH [id number] PRN PRN Reason: Shortness of Breath Aspirin (Aspirin Chewable) 81 mg PO DAILY [facility] Last Admin: 08/08/16 09:25 Dose: 81 mg Atorvastatin Calcium (Lipitor) 40 mg PO DIN [facility] Last Admin: 08/07/16 18:03 Dose: 40 mg Diphenhydramine HCl (Benadryl) 25 mg PO HS PRN PRN Reason: Insomnia Last Admin: 08/08/16 01:46 Dose: 25 mg Enoxaparin Sodium (Lovenox) 40 mg SC DAILY [facility] PRN Reason: Protocol Last Admin: 08/08/16 09:24 Dose: 40 mg Furosemide (Lasix) 40 mg IVP DAILY [facility] Last Admin: 08/08/16 09:24 Dose: 40 mg Guaifenesin (Robitussin) 200 mg PO Q4H PRN PRN Reason: Cough and congestion Last Admin: 08/07/16 11:06 Dose: 200 mg Hydralazine HCl (Apresoline) 10 mg IVP STAT [facility] Last Admin: 08/07/16 22:30 Dose: Not Given Insulin Detemir (Levemir) 14 unit SC BID [facility] Last Admin: 08/08/16 09:28 Dose: 14 unit Insulin Human Regular (Humulin R Med) 0 units SC ACHS [facility] PRN Reason: Protocol Last Admin: 08/08/16 12:31 Dose: 8 units Lisinopril (Zestril) 40 mg PO DAILY [facility] Last Admin: 08/08/16 09:24 Dose: 40 mg Pantoprazole Sodium (Protonix Inj) 40 mg IVP DAILY [facility] Last Admin: 08/08/16 09:24 Dose: 40 mg - Labs Labs: 08/08/16 06:40 08/08/16 06:40 PT 11.3 Seconds (9.9-11.8) 08/06/16 16:10 INR 1.05 (0.93-1.08) 08/06/16 16:10 APTT 26.7 Seconds (23.7-30.8) 08/06/16 16:10 - Constitutional Appears: Well, No Acute Distress - Head Exam Head Exam: ATRAUMATIC, NORMAL INSPECTION, NORMOCEPHALIC - Eye Exam Eye Exam: EOMI, Normal appearance, PERRL Pupil Exam: NORMAL ACCOMODATION, PERRL - ENT Exam ENT Exam: Mucous Membranes Moist, Normal Exam - Neck Exam Neck Exam: Full ROM, Normal Inspection. absent: Lymphadenopathy - Respiratory Exam Respiratory Exam: Clear to Ausculation Bilateral, NORMAL BREATHING PATTERN. absent: Accessory Muscle Use, Respiratory Distress - Cardiovascular Exam Cardiovascular Exam: REGULAR RHYTHM, +S1, +S2. absent: Murmur - GI/Abdominal Exam GI & Abdominal Exam: Soft, Normal Bowel Sounds. absent: Distended, Tenderness - Extremities Exam Extremities Exam: Full ROM, Normal Capillary Refill, Normal Inspection. absent : Joint Swelling, Pedal Edema - Back Exam Back Exam: NORMAL INSPECTION - Neurological Exam Neurological Exam: Alert, Awake, CN II-XII Intact, Normal Gait, Oriented x3 - Psychiatric Exam Psychiatric exam: Normal Affect, Normal Mood - Skin Skin Exam: Dry, Intact, Normal Color, Warm Assessment and Plan - Assessment and Plan (Free Text) Assessment: 50yo male with history of hypertension, hyperlipidemia and diabetes mellitus type 2 presents c/o shortness of breath and nonproductive cough. Plan: 1. Shortness of breath due to CHF exacerbation vs pneumonia -afebrile -WBC 10.7 <- 13.2 -NT-ProBNP 1210->1400; Troponin negative x3 -CTA reviewed Final report: no evidence of PE, bilateral pleural effusions, no other active disease -Echocardiogram from 05/2016 reviewed; LVEF 52% -ABG: pH: 7.44, CO2 26, PO2 74, HCO3: 17.1 -procalcitonin not elevated -blood, urine and sputum cultures pending, legionella antigen negative -Discontinue with Rocephin/azithromycin: Cx no growth, Lactate 2.1 -Continue with lasix IV 40mg qD, change to PO tomorrow -Continue with robitussin/duoneb PRN -Cardiology consulted for possible CHF 2. Hyperglycemia, h/o DM -Lactic acid 3.5->2.1 -anion gap 9 -glucose 379 at admit, up to 435, 232 this AM -ABG: pH: 7.44, CO2 26, PO2 74, HCO3: 17.1 -Diabetic control -Humulin med dose ISS -levemir 14 BID -Consistent carb diet -Fingersticks ACHS 3. DVT -elevated d-dimer -BL LE US pending 4. Hypertension -Continue with home med lisinopril 5. Hyperlipidemia -Continue with home med lipitor 6. Hypomagnesemia: resolved -MG 1.6-> 2.2 -Mg sulfate supplementation PRN 7. GI/DVT prophylaxis -Protonix/lovenox Dispo: Likely DC tomorrow with PO meds. DW attending <Cameron Bell MD - Last Filed: 08/08/16 18:04> Objective - Vital Signs/Intake and Output Vital Signs (last 24 hours): Temp Pulse Resp BP Pulse Ox 97.7 F 92 H 20 146/90 98 08/08/16 17:54 08/08/16 17:54 08/08/16 17:54 08/08/16 17:54 08/08/16 00:01 - Medications Medications: Current Medications Albuterol/Ipratropium (Duoneb 3 Mg/0.5 Mg (3 Ml) Ud) 3 ml IH [id number] PRN PRN Reason: Shortness of Breath Aspirin (Aspirin Chewable) 81 mg PO DAILY [facility] Last Admin: 08/08/16 09:25 Dose: 81 mg Atorvastatin Calcium (Lipitor) 40 mg PO DIN [facility] Last Admin: 08/08/16 17:23 Dose: 40 mg Diphenhydramine HCl (Benadryl) 25 mg PO HS PRN PRN Reason: Insomnia Last Admin: 08/08/16 01:46 Dose: 25 mg Enoxaparin Sodium (Lovenox) 40 mg SC DAILY [facility] PRN Reason: Protocol Last Admin: 08/08/16 09:24 Dose: 40 mg Furosemide (Lasix) 40 mg IVP DAILY [facility] Last Admin: 08/08/16 09:24 Dose: 40 mg Guaifenesin (Robitussin) 200 mg PO Q4H PRN PRN Reason: Cough and congestion Last Admin: 08/07/16 11:06 Dose: 200 mg Hydralazine HCl (Apresoline) 10 mg IVP STAT [facility] Last Admin: 08/07/16 22:30 Dose: Not Given Insulin Detemir (Levemir) 14 unit SC BID [facility] Last Admin: 08/08/16 17:23 Dose: 14 unit Insulin Human Regular (Humulin R Med) 0 units SC ACHS [facility] PRN Reason: Protocol Last Admin: 08/08/16 17:24 Dose: 1 units Lisinopril (Zestril) 40 mg PO DAILY [facility] Last Admin: 08/08/16 09:24 Dose: 40 mg Pantoprazole Sodium (Protonix Inj) 40 mg IVP DAILY [facility] Last Admin: 08/08/16 09:24 Dose: 40 mg Risperidone (Risperdal Tab) 1 mg PO DAILY [facility] PRN Reason: Protocol - Labs Labs: 08/08/16 06:40 08/08/16 06:40 PT 11.3 Seconds (9.9-11.8) 08/06/16 16:10 INR 1.05 (0.93-1.08) 08/06/16 16:10 APTT 26.7 Seconds (23.7-30.8) 08/06/16 16:10 Attending/Attestation - Attestation I have personally seen and examined this patient.: Yes I have fully participated in the care of the patient.: Yes I have reviewed all pertinent clinical information, including history, physical exam and plan: Yes Notes (Text): Patient was seen and examined with director medical writing .Agreed with resident assessment and plan. 50 M was admitted with dyspnea on exertion and PND , due to diastolic CHF, improved with IV lasix, Procalcitonin level is normal, cultures are negative, patient is afebrile.antibiotic can be discontinued. D dimer was elevated, but no PE on CT angio chest, and there was no DVT on Venous doppler Patient may need ischemia work up. Cardiology evaluation is appreciated. Management plan was discussed in detail with patient Education was provided.
--- NOTE | 2016-08-08 14:17 | RAD ---
HISTORY: F/U pneumonia and compare COMPARISON: 08/06/2016 FINDINGS: LUNGS: No active pulmonary disease. PLEURA: Small bilateral pleural effusions CARDIOVASCULAR: Normal. OSSEOUS STRUCTURES: No significant abnormalities. VISUALIZED UPPER ABDOMEN: Normal. OTHER FINDINGS: None. IMPRESSION: No active disease.
[2016-08-09] MEDS ORDERED: Metoprolol 1 mg/ml Inj IVP ONE (05:21)
[2016-08-09 06:48] VITALS: O2SAT 95
[2016-08-09 07:08] LABS: ADD MANUAL DIFF? NO
[2016-08-09 07:18] LABS: BASO # 0.03 K/mm3 (0.0-2.0); BASO % 0.3 % (0.0-3.0); EOS # 0.6 (0.0-0.7); EOS % 5.8 % (1.5-5.0); GRAN # 6.44 (1.4-6.5); GRAN % 63.9 % (50.0-68.0); HEMATOCRIT 40.4 % (42.0-52.0); LYMPH # 2.2 (1.2-3.4); LYMPH % 21.7 % (22.0-35.0); MEAN CELL VOLUME 85.2 fL (80.0-105.0); MEAN CORPUSCULAR HEMOGLOBIN 29.1 pg (25.0-35.0); MEAN CORPUSCULAR HGB CONC 34.2 g/dl (31.0-37.0); MEAN PLATELET VOLUME 9.5 fl (7.0-11.0); MONO # 0.8 (0.1-0.6); MONO % 8.3 % (1.0-6.0); PLATELET COUNT 369 10^3/uL (120.0-450.0); RED CELL DISTRIBUTION WIDTH 12.3 % (11.5-14.5); WHITE BLOOD COUNT 10.1 10^3/ul (4.5-11.0)
[2016-08-09 07:40] LABS: ALKALINE PHOSPHATASE 81 U/L (38-133); ALT/SGPT 37 U/L (7-56); AST/SGOT 31 U/L (15-59); BILIRUBIN,TOTAL 0.6 mg/dL (0.2-1.3); BLOOD UREA NITROGEN 30 mg/dL (7-21); CALCIUM 8.5 mg/dL (8.4-10.5); CARBON DIOXIDE 23 mmol/L (21-33); CHLORIDE 102 mmol/L (98-107); GFR AFRICAN-AMERICAN > 60; GLUCOSE,RANDOM 238 mg/dL (70-110); PHOSPHOROUS 4.2 mg/dL (2.5-4.5); POTASSIUM 3.7 mmol/L (3.6-5.0); SODIUM 136 mmol/L (132-148); TOTAL PROTEIN 6.7 g/dL (5.8-8.3)
[2016-08-09] MEDS: Insulin Reg-MEDIUM-Coverage SC SCH ×4 (08:26→21:56)
[2016-08-09] MEDS: Enoxaparin 40 mg Syringe SC SCH (09:40)
[2016-08-09] MEDS: Insulin Detemir 100 units/ml Vial (Levemir) SC SCH ×2 (09:43→17:30)
--- NOTE | 2016-08-09 10:28 | PN ---
DATE: 08/09/2016 REASON FOR CONSULTATION AND FOLLOWUP: Shortness of breath, cardiac evaluation. BRIEF CLINICAL HISTORY: A 50-year-old male with past medical history significant for hypertension, h yperlipidemia, obesity, came with a complaint of 2-3 days of shortness of breath, coughing, bringing some phlegm. The patient able to lie flat. CAT scan revealed moderate bilateral pleural effusion an d right upper lobe infiltrate. The patient was started on Lasix. Repeat chest x-ray significantly i mproved infiltrate as well as pleural effusion. PHYSICAL EXAMINATION: VITAL SIGNS: Temperature afebrile, heart rate 90, blood pressure 185/115. HEENT: PERRLA. Extraocular muscles intact. NECK: Supple. No carotid bruits. No thyromegaly. CHEST: Clear to auscultation. HEART: S1, S2 regular. ABDOMEN: Soft. EXTREMITIES: Clubbing and cyanosis negative. LABORATORY DATA: Blood workup as follows: WBC 10.1, hemoglobin 13.8, hematocrit 38.4, platelet coun t 365. Sodium 130, potassium 3.0, chloride 102, carbon dioxide 23, anion gap of 15, BUN 30, creatini ne 1.1. IMPRESSION: Uncontrolled hypertension, obesity, diabetes, hypertension, hyperlipidemia, pulmonary in filtrate, pleural effusion which cleared up with Lasix and antibiotics. Repeat chest x-ray yesterday cleared up. Recent echo dated 05/16/2016, 52% ejection fraction, diastolic dysfunction, mild tricusp id regurgitation, right ventricular systolic pressure 32, normal mitral valve, elevated blood pressur e. RECOMMENDATION: Aggressive control of blood pressure. Continue antibiotic, continue IV Lasix. Stre ss test tomorrow to rule out any ischemia. We will follow with you. Thank you, Dr. Mariano, for providing the opportunity in taking care of the patient. Put hydralazi ne 10 mg and we will put 25 mg of metoprolol twice a day and put hydralazine p.r.n. and n.p.o. for a stress test. We will follow with you. Cameron Yoo MD cc: [id number] TT: 08/09/2016 10:27:26 Confirmation # [id number] Dictation # [id number]
--- NOTE | 2016-08-09 12:07 | CON ---
DATE: 08/09/2016 Shortly, the patient is a 50-year-old male, not known previous psychiatric history, but as p er medical team, the patient has history of schizophrenia. The patient was admitted to the [facility] for shortness of breath. Psych consult was called because the patient has psychotropic medicati ons on board and presented to be weird. The patient was seen and examined today at the morning time. The patient was alert and oriented. Th e patient knows medical condition why he came to the hospital. The patient reported that he has hist ory of hearing voices, and the patient said that this is very annoying. The patient said that he was compliant with the medications, and he is followed up by [facility]. The patient reported lydia t last time he had an appointment was 08/03. The patient is not aware of what medications he is kirk g, but reported that he was filling them in [facility] pharmacy. Phone number is [phone]. This speech writer called and confirmed medications. The patient was on trazodone 50 mg at the nighttime prescri bed by Ally Coker, filled on 07/24. The patient also was on Risperdal prescribed by burt Chong on 07/24. Phone number of Dr. Coker - [phone]. The patient reported that he feels stressed out because of the medical issues, and also the patient r eported that he hears voices, and they are "very annoying - they are screaming ah, ah." The patient reported that he was fighting with them, and he was fighting with imaginary people, and that he heard that he hurt them. The patient denied thoughts of harming himself or others, denied intent or plan. The patient reported that he slept relatively well last night and is to continue Benadryl. VITAL SIGNS: Stable, but temperature 97.2. Pulse is 98, blood pressure 184/115, respirations 18, ox ygen saturation 95. MEDICATIONS: Reviewed. The patient is on DuoNeb, aspirin, Lipitor, Benadryl 25 mg at the nighttime, but this will be increased to 50 mg, Lovenox 40 mg daily, Lasix 40 mg IV push daily, Robitussin, hyd ralazine, Levemir, Humalog. The patient also is on Zestril, Lopressor, Protonix, Risperdal 1 mg p.o. daily, but this speech writer will increase that medication to 2 mg twice a day. LABORATORY DATA: Reviewed. Seem to be within normal limits. WBC cells 10.1, hemoglobin and hematoc rit 13.8 and 40.4 respectively. Granulocytes ____. There are no signs of granulocytosis. Coagulati on: D-dimer is 0.84, which is high. Chemistry also reviewed. BUN is 30. Urine showed blood modera te. Toxicology is negative for any substances. Serology negative. PAST PSYCHIATRIC HISTORY: The patient reported that he is followed up by [facility]. The patient denied history of being admitted to the psychiatric inpatient unit, but this speech writer doubts. The patient denied history of suicidal attempts. MENTAL STATUS EXAMINATION: The patient presented to be alert. Fair eye contact. At the same time, the patient is suspicious and guarded. Mood described as depressed. Affect was constricted. Though t process: Circumstantial, tangential. Thought content: The patient reported to hear voices. Irineo ed visual hallucinations. The patient also reported history of paranoia. The patient has history of being arrested, as well as being incarcerated, and the patient feels that police is after him. Insi ght and judgment are limited. Impulses are well-controlled. IMPRESSION: Rule out schizophrenia spectrum. Psychosis, not otherwise specified. Rule out schizoaf fective disorder. The patient has multiple medical issues as per pharmacy. The patient had a histor y of diabetes and the patient's family - sister is concerned about the patient's health. This patien t was recently admitted to the medical floor for elevated sugar, and that was about 600 back then. PLAN: This speech writer increased the dose of Risperdal, but this speech writer would most likely change second g eneration of antipsychotic medication to first generation because of less chance of metabolic syndrom e. This speech writer increased the dose of Benadryl to 50 mg for EPS symptoms as well as for insomnia. Th is speech writer will follow up on this patient and advise accordingly. Thank you very much for letting me participate in the care of your patient. Estelita Garcia MD cc: [phone] TT: 08/09/2016 12:06:57 Confirmation # [id number] Dictation # [id number]
--- NOTE | 2016-08-09 12:52 | CP.PCM.PN ---
<Gris Luna - Last Filed: 08/09/16 12:46> Subjective - Date & Time of Evaluation Date of Evaluation: 08/09/16 Time of Evaluation: 12:47 - Subjective Subjective: Pt s&e w attending. Reports lack of sleep because of audio hallucination. Seen by Psychiatrist. Denies F/C/N/V/D/CP/SOB. + void, +amb, tolerating PO. Objective - Vital Signs/Intake and Output Vital Signs (last 24 hours): Temp Pulse Resp BP Pulse Ox 97.2 F L 101 H 18 184/115 H 95 08/09/16 05:35 08/09/16 11:15 08/09/16 05:35 08/09/16 11:15 08/09/16 05:35 Intake and Output: 08/09/16 08/09/16 06:59 18:59 Intake Total 0 Output Total 0 Balance 0 - Medications Medications: Current Medications Albuterol/Ipratropium (Duoneb 3 Mg/0.5 Mg (3 Ml) Ud) 3 ml IH [id number] PRN PRN Reason: Shortness of Breath Aspirin (Aspirin Chewable) 81 mg PO DAILY [facility] Last Admin: 08/09/16 09:41 Dose: 81 mg Atorvastatin Calcium (Lipitor) 40 mg PO DIN [facility] Last Admin: 08/08/16 17:23 Dose: 40 mg Diphenhydramine HCl (Benadryl) 50 mg PO HS [facility] Enoxaparin Sodium (Lovenox) 40 mg SC DAILY [facility] PRN Reason: Protocol Last Admin: 08/09/16 09:40 Dose: 40 mg Furosemide (Lasix) 40 mg IVP DAILY [facility] Last Admin: 08/09/16 09:41 Dose: 40 mg Guaifenesin (Robitussin) 200 mg PO Q4H PRN PRN Reason: Cough and congestion Last Admin: 08/07/16 11:06 Dose: 200 mg Hydralazine HCl (Apresoline) 10 mg PO QID PRN PRN Reason: for SBP>170 7 diastolic>100 Hydralazine HCl (Apresoline) 25 mg PO BID [facility] Last Admin: 08/09/16 11:11 Dose: 25 mg Insulin Detemir (Levemir) 14 unit SC BID [facility] Last Admin: 08/09/16 09:43 Dose: 14 unit Insulin Human Regular (Humulin R Med) 0 units SC ACHS [facility] PRN Reason: Protocol Last Admin: 08/09/16 12:34 Dose: 5 units Lisinopril (Zestril) 40 mg PO DAILY [facility] Last Admin: 08/09/16 09:41 Dose: 40 mg Metoprolol Tartrate (Lopressor) 25 mg PO BID [facility] Last Admin: 08/09/16 11:15 Dose: 25 mg Pantoprazole Sodium (Protonix Inj) 40 mg IVP DAILY [facility] Last Admin: 08/09/16 09:41 Dose: 40 mg Risperidone (Risperdal Tab) 2 mg PO BID [facility] PRN Reason: Protocol - Labs Labs: 08/09/16 06:30 08/09/16 06:30 PT 11.3 Seconds (9.9-11.8) 08/06/16 16:10 INR 1.05 (0.93-1.08) 08/06/16 16:10 APTT 26.7 Seconds (23.7-30.8) 08/06/16 16:10 - Constitutional Appears: No Acute Distress - Head Exam Head Exam: ATRAUMATIC, NORMAL INSPECTION, NORMOCEPHALIC - Eye Exam Eye Exam: EOMI, Normal appearance, PERRL Pupil Exam: NORMAL ACCOMODATION, PERRL - ENT Exam ENT Exam: Mucous Membranes Moist, Normal Exam - Neck Exam Neck Exam: Full ROM, Normal Inspection. absent: Lymphadenopathy - Respiratory Exam Respiratory Exam: Clear to Ausculation Bilateral, NORMAL BREATHING PATTERN. absent: Accessory Muscle Use, Respiratory Distress - Cardiovascular Exam Cardiovascular Exam: REGULAR RHYTHM, +S1, +S2. absent: Murmur - GI/Abdominal Exam GI & Abdominal Exam: Soft, Normal Bowel Sounds. absent: Distended, Tenderness - Extremities Exam Extremities Exam: Full ROM, Normal Capillary Refill, Normal Inspection. absent : Joint Swelling, Pedal Edema - Back Exam Back Exam: NORMAL INSPECTION - Neurological Exam Neurological Exam: Alert, Awake, CN II-XII Intact, Normal Gait, Oriented x3 - Skin Skin Exam: Dry, Intact, Normal Color, Warm. absent: Erythema Assessment and Plan - Assessment and Plan (Free Text) Assessment: 50yo male with history of hypertension, hyperlipidemia and diabetes mellitus type 2 presents c/o shortness of breath and nonproductive cough. Plan: 1. Shortness of breath due to CHF exacerbation -afebrile -WBC 10<-10.7 <- 13.2 -NT-ProBNP 1210->1400; Troponin negative x3 -CTA reviewed Final report: no evidence of PE, bilateral pleural effusions, no other active disease -Echocardiogram from 05/2016 reviewed; LVEF 52% -ABG: pH: 7.44, CO2 26, PO2 74, HCO3: 17.1 -procalcitonin not elevated -blood, urine and sputum cultures, legionella antigen negative -Cx no growth, Lactate 2.1 -Continue with lasix IV 40mg qD, change to PO tomorrow -Continue with robitussin/duoneb PRN -Cardiology consulted: Stress test tomorrow, NPO midnight. 2. Hyperglycemia, h/o DM -Lactic acid 3.5->2.1 -anion gap 11 -glucose 379 at admit, up to 435, 238 this AM. -ABG: pH: 7.44, CO2 26, PO2 74, HCO3: 17.1 -Diabetic control -Humulin med dose ISS -levemir 14 BID -Consistent carb diet -Fingersticks ACHS 3. r/o DVT -BL LE US : no DVT 4. Hypertension -Continue with home med lisinopril and lopressor -Per ardio aggresive BP control: Added Hydralazine 5. Hyperlipidemia -Continue with home med lipitor, ASA 6. Hypomagnesemia: resolved -MG 1.6-> 2.2 -Mg sulfate supplementation PRN 7. GI/DVT prophylaxis -Protonix/lovenox 8. psychosis -Risperidone -Psychiatrist following Dispo: Likely DC tomorrow with PO meds if Stress test normal . DW attending <Cameron Bell MD - Last Filed: 08/09/16 17:24> Objective - Vital Signs/Intake and Output Vital Signs (last 24 hours): Temp Pulse Resp BP Pulse Ox 98.3 F 89 20 143/84 95 08/09/16 12:00 08/09/16 14:00 08/09/16 12:00 08/09/16 12:00 08/09/16 05:35 Intake and Output: 08/09/16 08/09/16 06:59 18:59 Intake Total 0 780 Output Total 0 3 Balance 0 777 - Medications Medications: Current Medications Albuterol/Ipratropium (Duoneb 3 Mg/0.5 Mg (3 Ml) Ud) 3 ml IH [id number] PRN PRN Reason: Shortness of Breath Aspirin (Aspirin Chewable) 81 mg PO DAILY [facility] Last Admin: 08/09/16 09:41 Dose: 81 mg Atorvastatin Calcium (Lipitor) 40 mg PO DIN [facility] Last Admin: 08/08/16 17:23 Dose: 40 mg Diphenhydramine HCl (Benadryl) 50 mg PO HS [facility] Enoxaparin Sodium (Lovenox) 40 mg SC DAILY [facility] PRN Reason: Protocol Last Admin: 08/09/16 09:40 Dose: 40 mg Furosemide (Lasix) 40 mg IVP DAILY [facility] Last Admin: 08/09/16 09:41 Dose: 40 mg Guaifenesin (Robitussin) 200 mg PO Q4H PRN PRN Reason: Cough and congestion Last Admin: 08/07/16 11:06 Dose: 200 mg Hydralazine HCl (Apresoline) 10 mg PO QID PRN PRN Reason: for SBP>170 7 diastolic>100 Hydralazine HCl (Apresoline) 25 mg PO BID [facility] Last Admin: 08/09/16 11:11 Dose: 25 mg Insulin Detemir (Levemir) 14 unit SC BID [facility] Last Admin: 08/09/16 09:43 Dose: 14 unit Insulin Human Regular (Humulin R Med) 0 units SC ACHS [facility] PRN Reason: Protocol Last Admin: 08/09/16 12:34 Dose: 5 units Lisinopril (Zestril) 40 mg PO DAILY [facility] Last Admin: 08/09/16 09:41 Dose: 40 mg Metoprolol Tartrate (Lopressor) 25 mg PO BID [facility] Last Admin: 08/09/16 11:15 Dose: 25 mg Pantoprazole Sodium (Protonix Inj) 40 mg IVP DAILY [facility] Last Admin: 08/09/16 09:41 Dose: 40 mg Risperidone (Risperdal Tab) 2 mg PO BID [facility] PRN Reason: Protocol - Labs Labs: 08/09/16 06:30 08/09/16 06:30 PT 11.3 Seconds (9.9-11.8) 08/06/16 16:10 INR 1.05 (0.93-1.08) 08/06/16 16:10 APTT 26.7 Seconds (23.7-30.8) 08/06/16 16:10 Attending/Attestation - Attestation I have personally seen and examined this patient.: Yes I have fully participated in the care of the patient.: Yes I have reviewed all pertinent clinical information, including history, physical exam and plan: Yes Notes (Text): Patient was seen and examined with medical secretary teacher .Agreed with resident assessment and plan. Patient is feeling better, cough and dyspnea has improved.He was having auditory hallucination this morning, has history of schezophrenia, on Resperidol.Psychiatry is consulted. He is not suicidal or agitated and is not having any hallucination at this time. Patient is scheduled for stress test in the morning. Management plan was discussed in detail with patient Education was provided.
[2016-08-10] MEDS: Insulin Reg-MEDIUM-Coverage SC SCH ×3 (08:47→17:18)
[2016-08-10] MEDS: Insulin Detemir 100 units/ml Vial (Levemir) SC SCH ×2 (11:22→17:18)
[2016-08-10] MEDS: Enoxaparin 40 mg Syringe SC SCH (15:10)
[2016-08-10 16:01] LABS: HEMATOCRIT 37.4 % (42.0-52.0); MEAN CELL VOLUME 86.2 fL (80.0-105.0); MEAN CORPUSCULAR HEMOGLOBIN 29.3 pg (25.0-35.0); MEAN PLATELET VOLUME 9.2 fl (7.0-11.0); RED CELL DISTRIBUTION WIDTH 12.2 % (11.5-14.5); WHITE BLOOD COUNT 9.2 10^3/ul (4.5-11.0)
[2016-08-10 16:16] LABS: BLOOD UREA NITROGEN 39 mg/dL (7-21); CALCIUM 8.6 mg/dL (8.4-10.5); CARBON DIOXIDE 23 mmol/L (21-33); CHLORIDE 98 mmol/L (98-107); GFR AFRICAN-AMERICAN > 60; POTASSIUM 4.5 mmol/L (3.6-5.0); SODIUM 130 mmol/L (132-148)
--- NOTE | 2016-08-10 16:31 | PN ---
DATE: 08/10/2016 REASON FOR CONSULTATION AND FOLLOWUP: Shortness of breath, cardiac evaluation. BRIEF CLINICAL HISTORY: A 50-year-old male with past medical history significant for hypertension, h yperlipidemia, obesity, came with complaint of 2-3 days of shortness of breath, cough and brings some phlegm. The patient is unable to lay flat. CAT scan revealed moderate bilateral pleural effusion a nd right upper lobe infiltrate. The patient underwent echo and the patient started on IV Lasix. Ant ibiotic was given. Repeat chest x-ray cleared up, no significant infiltrate. Also, bilateral pleura l effusion decreased. The patient's last echo dated 05/16/2016 showed ejection fraction 52%, diastol ic dysfunction, mild tricuspid regurgitation, RV systolic pressure of 32, normal mitral valve. The p atient is scheduled for a stress test today. PHYSICAL EXAMINATION: VITAL SIGNS: Temperature afebrile, heart rate 87, blood pressure 145/93. HEENT: PERRLA. Extraocular muscles intact. NECK: Supple. No carotid bruit or thyromegaly. CHEST: Clear to auscultation. HEART: S1, S2 regular. ABDOMEN: Soft. EXTREMITIES: Clubbing and cyanosis negative. BLOOD WORKUP: WBC 10.1, hematocrit 13.8 hematocrit 40.4, platelet count 369. Chemistry shows sodium 130, potassium 3.7, chloride 102, carbon dioxide 23, anion gap of 15, BUN 30, creatinine 1.1. IMPRESSION: Poorly controlled hypertension, poorly controlled diabetes, obesity, shortness of breath , pneumonia which later on cleared up. Echocardiogram shows preserved left ventricular function. RECOMMENDATION: Rule out congestive heart failure. On admission, BNP was 1210. Rule out underlying coronary artery disease. The patient is going for a stress test. Further recommendation after the stress test. Will follow with you. Thank you, Dr. Mariano, for providing the opportunity in taking care of this patient. Will follow with you. No evidence of acute coronary syndrome, no evidence of ischemia or acute coronary syndrome . Unstable angina. Cameron Yoo MD cc: [id number] TT: 08/10/2016 16:30:45 Confirmation # [id number] Dictation # [id number]
[2016-08-10 16:56] LABS: GLUCOSE,RANDOM 373 mg/dL (70-110)
--- NOTE | 2016-08-10 17:35 | CP.PCM.PN ---
<Juan Ho - Last Filed: 08/10/16 17:22> Subjective - Date & Time of Evaluation Date of Evaluation: 08/10/16 Time of Evaluation: 08:00 - Subjective Subjective: Pt seen and examined at bedside. Pt with no complaints. No acute events overnight. Pt will undergo stress test this morning. Denies CP, SOB, N/V/D, fevers, chills. Objective - Vital Signs/Intake and Output Vital Signs (last 24 hours): Temp Pulse Resp BP Pulse Ox 98.3 F 87 18 145/93 H 95 08/10/16 15:12 08/10/16 15:12 08/10/16 15:12 08/10/16 15:12 08/09/16 05:35 Intake and Output: 08/10/16 08/10/16 06:59 18:59 Intake Total 1380 300 Output Total 0 0 Balance 1380 300 - Medications Medications: Current Medications Albuterol/Ipratropium (Duoneb 3 Mg/0.5 Mg (3 Ml) Ud) 3 ml IH [id number] PRN PRN Reason: Shortness of Breath Aspirin (Aspirin Chewable) 81 mg PO DAILY [facility] Last Admin: 08/10/16 15:09 Dose: 81 mg Atorvastatin Calcium (Lipitor) 40 mg PO DIN [facility] Last Admin: 08/09/16 17:21 Dose: 40 mg Diphenhydramine HCl (Benadryl) 50 mg PO HS [facility] Last Admin: 08/09/16 21:27 Dose: 50 mg Enoxaparin Sodium (Lovenox) 40 mg SC DAILY [facility] PRN Reason: Protocol Last Admin: 08/10/16 15:10 Dose: 40 mg Furosemide (Lasix) 40 mg IVP DAILY [facility] Last Admin: 08/10/16 15:09 Dose: 40 mg Guaifenesin (Robitussin) 200 mg PO Q4H PRN PRN Reason: Cough and congestion Last Admin: 08/07/16 11:06 Dose: 200 mg Hydralazine HCl (Apresoline) 10 mg PO QID PRN PRN Reason: for SBP>170 7 diastolic>100 Hydralazine HCl (Apresoline) 25 mg PO BID [facility] Last Admin: 08/10/16 10:00 Dose: Not Given Insulin Detemir (Levemir) 14 unit SC BID [facility] Last Admin: 08/10/16 11:22 Dose: Not Given Insulin Human Regular (Humulin R Med) 0 units SC ACHS [facility] PRN Reason: Protocol Last Admin: 08/10/16 12:08 Dose: Not Given Lisinopril (Zestril) 40 mg PO DAILY [facility] Last Admin: 08/10/16 15:08 Dose: 40 mg Metoprolol Tartrate (Lopressor) 25 mg PO BID [facility] Last Admin: 08/10/16 10:00 Dose: Not Given Pantoprazole Sodium (Protonix Inj) 40 mg IVP DAILY [facility] Last Admin: 08/10/16 15:10 Dose: 40 mg Risperidone (Risperdal Tab) 2 mg PO BID [facility] PRN Reason: Protocol Last Admin: 08/10/16 15:10 Dose: Not Given - Labs Labs: 08/10/16 15:45 08/10/16 15:45 PT 11.3 Seconds (9.9-11.8) 08/06/16 16:10 INR 1.05 (0.93-1.08) 08/06/16 16:10 APTT 26.7 Seconds (23.7-30.8) 08/06/16 16:10 - Constitutional Appears: Well, No Acute Distress - Head Exam Head Exam: ATRAUMATIC, NORMAL INSPECTION, NORMOCEPHALIC - Respiratory Exam Respiratory Exam: Clear to Ausculation Bilateral, NORMAL BREATHING PATTERN. absent: Rhonchi, Wheezes - Cardiovascular Exam Cardiovascular Exam: RRR, +S1, +S2 - GI/Abdominal Exam GI & Abdominal Exam: Soft, Normal Bowel Sounds. absent: Tenderness - Extremities Exam Extremities Exam: Normal Inspection. absent: Calf Tenderness, Pedal Edema - Neurological Exam Neurological Exam: Alert, Awake, Oriented x3 - Psychiatric Exam Psychiatric exam: Normal Affect, Normal Mood - Skin Skin Exam: Intact, Normal Color, Warm Assessment and Plan - Assessment and Plan (Free Text) Plan: 50 y/o male with PMH of hypertension, hyperlipidemia and diabetes mellitus type 2 presents with shortness of breath and nonproductive cough. Pt underwent stress today, pt will have further recommendations based upon results. 1. CHF exacerbation -WBC normalized at this time -Previous Echocardiogram, LVEF 52% -Continue with lasix IV 40mg qD -Continue with robitussin/duoneb PRN -Stress test results pending. 2. DM -Glucose elevated this AM, 373 -Humulin med dose ISS changed to high -levemir 14 BID 3. Hypertension -Continue home lisinopril and lopressor -Hydralazine schedule and prn 4. Hyperlipidemia -Continue home lipitor, ASA 5. psychosis -Improving -Continue Risperidone -Psychiatrist following 7. GI/DVT prophylaxis -Protonix -lovenox Seen, reviewed, and discussed with attending. Vic, PGY-1 <Ray EASTON,Cameron - Last Filed: 08/11/16 07:52> Objective - Vital Signs/Intake and Output Vital Signs (last 24 hours): Temp Pulse Resp BP Pulse Ox 98.1 F 96 H 20 151/78 H 95 08/11/16 06:00 08/11/16 06:00 08/11/16 06:00 08/11/16 06:00 08/11/16 06:00 - Medications Medications: Current Medications Albuterol/Ipratropium (Duoneb 3 Mg/0.5 Mg (3 Ml) Ud) 3 ml IH [id number] PRN PRN Reason: Shortness of Breath Aspirin (Aspirin Chewable) 81 mg PO DAILY [facility] Last Admin: 08/10/16 15:09 Dose: 81 mg Atorvastatin Calcium (Lipitor) 40 mg PO DIN [facility] Last Admin: 08/10/16 17:16 Dose: 40 mg Diphenhydramine HCl (Benadryl) 50 mg PO HS [facility] Last Admin: 08/10/16 21:59 Dose: 50 mg Enoxaparin Sodium (Lovenox) 40 mg SC DAILY [facility] PRN Reason: Protocol Last Admin: 08/10/16 15:10 Dose: 40 mg Guaifenesin (Robitussin) 200 mg PO Q4H PRN PRN Reason: Cough and congestion Last Admin: 08/07/16 11:06 Dose: 200 mg Hydralazine HCl (Apresoline) 10 mg PO QID PRN PRN Reason: for SBP>170 7 diastolic>100 Hydralazine HCl (Apresoline) 25 mg PO BID [facility] Last Admin: 08/10/16 17:15 Dose: 25 mg Insulin Detemir (Levemir) 14 unit SC BID [facility] Last Admin: 08/10/16 17:18 Dose: 14 unit Insulin Human Regular (Humulin R High) 0 units SC ACHS [facility] PRN Reason: Protocol Last Admin: 08/10/16 21:58 Dose: Not Given Lisinopril (Zestril) 40 mg PO DAILY [facility] Last Admin: 08/10/16 15:08 Dose: 40 mg Metoprolol Tartrate (Lopressor) 25 mg PO BID [facility] Last Admin: 08/10/16 17:16 Dose: 25 mg Pantoprazole Sodium (Protonix Ec Tab) 40 mg PO ACB [facility] Risperidone (Risperdal Tab) 2 mg PO BID [facility] PRN Reason: Protocol Last Admin: 08/10/16 17:17 Dose: 2 mg - Labs Labs: 08/10/16 15:45 08/10/16 15:45 PT 11.3 Seconds (9.9-11.8) 08/06/16 16:10 INR 1.05 (0.93-1.08) 08/06/16 16:10 APTT 26.7 Seconds (23.7-30.8) 08/06/16 16:10 Attending/Attestation - Attestation I have personally seen and examined this patient.: Yes I have fully participated in the care of the patient.: Yes I have reviewed all pertinent clinical information, including history, physical exam and plan: Yes Notes (Text): Patient was seen and examined with medical billing service . Patient cough and dyspnea has improved.He is mildly hyponatremic today and creatinin is increased to 1.5.This is due to overdiuresis, we will discontinue IV lasix, will follow up LAB and will start on oral lasix in 24 hour depending on renal function. Patient stress test results are pending, we will follow up results Patient hallucination has improved. Patient blood sugar is running as he missed his morning dose of insulin as he was NPO for stress test, we will monitor blood sugars and adjust medications.. Management plan was discussed in detail with patient Education was provided.
--- NOTE | 2016-08-10 18:40 | PN ---
DATE: 08/10/2016 Shortly, the patient is a 50-year-old male with long history of schizophrenia. The patient was admitted on the medical floor for difficulty to breathe. Psych consult was called for evaluation of psychotic symptoms. Please see this lyric writer's note for more detailed information. This lyric writer in itially saw patient yesterday, medication concern, Risperdal was increased. The patient was seen tod ay for followup. The patient presented much better to compare with yesterday. The patient's sister, Patrizia who lives with him, sits next to the patient. The patient was observed eating with good appet ite. The patient reported that he is not hearing any voices. His mood is significantly better. He had a good night's sleep. Patrizia confirmed that the patient presented much better to compare with the time of admission and she was appreciative. VITAL SIGNS: Stable. Temperature 98.3, pulse 87, blood pressure 145/93, respiration 18. MEDICATIONS: Reviewed. This lyric writer increased the dose of Risperdal to 2 mg twice a day as well as d ose of Benadryl was increased to 50 mg. This lyric writer educated patient as well as his sister about ris ks, benefits, alternatives of the medication. They were appreciative. LABORATORY DATA: Reviewed. Coagulation reviewed. Blood gas reviewed. Chemistry reviewed. Urinaly sis reviewed. Discussed with ____ today. MENTAL STATUS EXAMINATION: The patient presented to have good personal hygiene, was pleasant and log operations coordinator perative. Speech was normal rate, tone, quality, and quantity. There is some poverty of speech. Mo od described as "I feel much better". Affect is reactive, mood congruent. Thought process is more c oherent and goal directed, but there is some poverty of thoughts. The patient adamantly denied thoug hts of harming himself or others, denied intent or plan. Insight and judgment are fair. Impulses ar e well controlled. IMPRESSION: Schizophrenia. As per history, the patient has multiple medical issues. [facility] for more detailed information. PLAN: Continue current management. Risperdal was increased. Benadryl was increased. Please provid e the patient with a prescription for a 2 week supply of ____. The patient has followup appointment with his psychiatrist at [facility]. The patient and his sister expressed no concerns or questions, w ere appreciative. The patient deemed to be at his baseline, does not meet the criteria for psychiatr ic inpatient unit admission. At the same time, patient is calm and cooperative, compliant with the t reatment, seems to be psychiatrically stable for discharge. Thank you very much for letting me participate in care of your patient. Estelita Garcia MD cc: [id number] TT: 08/10/2016 18:39:05 Confirmation # [id number] Dictation # [id number]
[2016-08-10] MEDS: Insulin Reg-HIGH-Coverage SC SCH (21:58)
--- NOTE | 2016-08-10 23:40 | CARD ---
APPROVED REPORT Protocol: HAMZAH Test Type: Sestamibi Stress Test Attending Physician: Dr. Cameron Garcia Referring Physician: Dr. Cameron Bell Test Indications: CAD Height:5 ft 9 in Weight:210lbs Medications: Aspirin,Lipitor,Benadryl, Lovenox,Lasix,Robitussin, Insulin, Zestril,Lopressor,Bisperdal,Protonix, Apresoline Medical History: 50 y/o male. Hx of chest pain,hypertension,COPD, hyperlipidemia,diabetic. Target HR: 172 bpm Resting ECG: RSR Resting Heart Rate: 99 bpm Resting Blood Pressure: 100/70mmHg Submaximum (85%): 146 bpm POST EXERCISE Reason for Termination: Fatigue Target HR: No Max HR: 151 bpm 88% of Maximum Predicted HR: 172 bpm Exercise duration: 06:00 min:sec, 2 Stage Exercise capacity: 7.0METs Max Blood Pressure: 174/76mmHg Blood Pressure response to exercise: normal resting BP - appropriate response Heart Rate response to exercise: appropriate Chest Pain: No, none Angina index: 0 Arrhythmia: Yes, Rare PVCs. ST Change: Yes, 1-1.5mm ST Depression in 2,3,AVF,V5,V6. Deviation: 0 mm INTERPRETATION Stress EKG Conclusion: MYOVIEW NUCLEAR STRESS TEST STOPPED AFTER 6 MINUTES OF HAMZAH PROTOCOL DUE TO FATIGUE. PATIENT ACHIEVED F87% OF PREDICTED HEART RATE. NO CHEST PAIN. ST DEPRESSION 1-1.5MM IN 2,3,AVF, V5,V6. NUCLEAR SCAN REPORT PENDING. Signed by Cameron Garcia Electronically Approved: 08/10/2016 13:55:11 EXAM: Myocardial Perfusion REST/STRESS Stress Test Type: Exercise Treadmill Imaging Protocol Rest Spect myocardial perfusion imaging was performed in supine position 60 minutes following the injection of 10.9 mCi of Tc-99 Myoview. At peak stress, the patient was injected intravenously with 30.4mCi of Tc-99 tetrofosmin after an exercise time of 6 minutes and 00 seconds. Gated Stress Spect was performed 65 minutes after intravenous Tc-99 Myoview injection. The images were gated to evaluate regional wall motion and calculate ventricular ejection fraction.Images were reconstructed using backfilter projection method in short horizontal and verticle long axis. Spect slices were generated. LV Perfusion The quality of the study is good. The left ventricle is moderatley enlarged in size with thickened myocardium. The right ventricle is unremarkable. The lung uptake is within normal limits. The distribution of tracer reveals homogeneous perfusion without discrete defect on the stress study. The remainder of the LV myocardium is unremarkable. The rest myocardial perfusion study shows no significant change. Wall Motion Study shows diffuse hypokinesis of the left ventricle. LVEF = 39%. Conclusion 1. Abnormal SPECT myocardial perfusion study. 2. There is no perfusion abnormality. 3. Moderate LV dysfunction with diffuse hypokinesis. 4. The above findings are suggestive of cardiomyopathy.
[2016-08-11 06:31] VITALS: RESP 20
[2016-08-11] MEDS ORDERED: Pantoprazole 40 mg EC Tab PO SCH (07:30)
[2016-08-11] MEDS: Insulin Reg-HIGH-Coverage SC SCH ×3 (08:00→16:49)
--- NOTE | 2016-08-11 09:48 | CP.PCM.DIS ---
<Gris Luna - Last Filed: 08/11/16 13:15> Provider - Provider Date of Admission: 08/06/16 20:48 Attending physician: Camreon Bell MD Primary care physician: Raeann Moyer MD Time Spent in preparation of Discharge (in minutes): 45 Hospital Course - Lab Results Lab Results: Micro Results 08/06/16 22:00 Urine,Clean Catch Urine Culture - Final No Growth (<1,000 CFU/ML) Most Recent Lab Values WBC 9.2 10^3/ul (4.5-11.0) 08/10/16 15:45 RBC 4.34 10^6/uL (3.5-6.1) 08/10/16 15:45 Hgb 12.7 gm/dL (14.0-18.0) L 08/10/16 15:45 Hct 37.4 % (42.0-52.0) L 08/10/16 15:45 MCV 86.2 fL (80.0-105.0) 08/10/16 15:45 MCH 29.3 pg (25.0-35.0) 08/10/16 15:45 MCHC 34.0 g/dl (31.0-37.0) 08/10/16 15:45 RDW 12.2 % (11.5-14.5) 08/10/16 15:45 Plt Count 337 10^3/uL (120.0-450.0) 08/10/16 15:45 MPV 9.2 fl (7.0-11.0) 08/10/16 15:45 Gran % 63.9 % (50.0-68.0) 08/09/16 06:30 Lymph % (Auto) 21.7 % (22.0-35.0) L 08/09/16 06:30 Pepin % (Auto) 8.3 % (1.0-6.0) H 08/09/16 06:30 Eos % (Auto) 5.8 % (1.5-5.0) H 08/09/16 06:30 Baso % (Auto) 0.3 % (0.0-3.0) 08/09/16 06:30 Gran # 6.44 (1.4-6.5) 08/09/16 06:30 Lymph # 2.2 (1.2-3.4) 08/09/16 06:30 Pepin # 0.8 (0.1-0.6) H 08/09/16 06:30 Eos # 0.6 (0.0-0.7) 08/09/16 06:30 Baso # 0.03 K/mm3 (0.0-2.0) 08/09/16 06:30 PT 11.3 Seconds (9.9-11.8) 08/06/16 16:10 INR 1.05 (0.93-1.08) 08/06/16 16:10 APTT 26.7 Seconds (23.7-30.8) 08/06/16 16:10 D-Dimer, Quantitative 0.84 mg/L FEU (0-0.50) H 08/06/16 16:10 pCO2 26 mm/Hg (35-45) L 08/07/16 12:09 pO2 74.0 mm/Hg (80-100) L 08/07/16 12:09 HCO3 17.7 mmol/L (21-28) L 08/07/16 12:09 ABG pH 7.44 (7.35-7.45) 08/07/16 12:09 ABG Total CO2 18.5 mmol.L (22-28) L 08/07/16 12:09 ABG O2 Saturation 96.3 % (95-98) 08/07/16 12:09 ABG O2 Content 17.5 ML/dl (15-23) 08/07/16 12:09 ABG Base Excess -4.9 mmol/L (-2.0-3.0) L 08/07/16 12:09 ABG Hemoglobin 13.2 g/dL (11.7-17.4) 08/07/16 12:09 ABG Carboxyhemoglobin 1.8 % (0.5-1.5) H 08/07/16 12:09 POC ABG HHb (Measured) 3.6 % (0-5) 08/07/16 12:09 ABG Methemoglobin 0.7 % (0.0-3.0) 08/07/16 12:09 ABG O2 Capacity 18.2 mL/dl (16-24) 08/07/16 12:09 Hgb O2 Saturation 93.9 % (95.0-98.0) L 08/07/16 12:09 FiO2 21.0 % 08/07/16 12:09 Sodium 130 mmol/L (132-148) L 08/10/16 15:45 Potassium 4.5 mmol/L (3.6-5.0) 08/10/16 15:45 Chloride 98 mmol/L (98-107) 08/10/16 15:45 Carbon Dioxide 23 mmol/L (21-33) 08/10/16 15:45 Anion Gap 14 (10-20) 08/10/16 15:45 BUN 39 mg/dL (7-21) H 08/10/16 15:45 Creatinine 1.5 mg/dL (0.5-1.4) H 08/10/16 15:45 Est GFR ( Amer) > 60 08/10/16 15:45 Est GFR (Non-Af Amer) 50 08/10/16 15:45 POC Glucose (mg/dL) 188 mg/dL (65-110) H 08/11/16 07:31 Random Glucose 373 mg/dL (70-110) H* D 08/10/16 15:45 Hemoglobin A1c 9.2 % (4.2-6.5) H 08/08/16 06:40 Lactic Acid 2.1 mmol/L (0.7-2.1) 08/07/16 15:55 Calcium 8.6 mg/dL (8.4-10.5) 08/10/16 15:45 Phosphorus 4.2 mg/dL (2.5-4.5) 08/09/16 06:30 Magnesium 2.0 mg/dL (1.7-2.2) 08/09/16 06:30 Total Bilirubin 0.6 mg/dL (0.2-1.3) 08/09/16 06:30 AST 31 U/L (15-59) 08/09/16 06:30 ALT 37 U/L (7-56) 08/09/16 06:30 Alkaline Phosphatase 81 U/L (38-133) 08/09/16 06:30 Lactate Dehydrogenase 399 U/L (333-699) 08/07/16 06:00 Total Creatine Kinase 153 U/L (35-230) 08/07/16 06:00 Troponin I 0.02 ng/mL D 08/07/16 06:00 NT-Pro-B Natriuret Pep 1410 pg/mL (0-450) H 08/08/16 06:40 Total Protein 6.7 g/dL (5.8-8.3) 08/09/16 06:30 Albumin 3.3 g/dL (3.0-4.8) 08/09/16 06:30 Globulin 3.4 gm/dL 08/09/16 06:30 Albumin/Globulin Ratio 1.0 (1.1-1.8) L 08/09/16 06:30 Triglycerides 132 mg/dL (35-160) 08/08/16 06:40 Cholesterol 173 mg/dL (130-200) 08/08/16 06:40 LDL Cholesterol Direct 105 mg/dL (0-129) 08/08/16 06:40 HDL Cholesterol 41 mg/dL (29-60) 08/08/16 06:40 Lipase 47 U/L (23-300) 08/06/16 16:10 Procalcitonin < 0.05 NG/ML (0.19-0.49) L 08/06/16 23:30 TSH 3rd Generation 2.25 mIU/mL (0.46-4.68) 08/08/16 06:40 Urine Color Yellow (YELLOW) 08/06/16 18:35 Urine Appearance Clear (CLEAR) 08/06/16 18:35 Urine pH 6.0 (4.7-8.0) 08/06/16 18:35 Ur Specific [employer] 1.025 (1.005-1.035) 08/06/16 18:35 Urine Protein 100 mg/dL (<30 mg/dL) H 08/06/16 18:35 Urine Glucose (UA) >=1000 mg/dL (NEGATIVE) 08/06/16 18:35 Urine Ketones Trace mg/dL (NEGATIVE) H 08/06/16 18:35 Urine Blood Moderate (NEGATIVE) H 08/06/16 18:35 Urine Nitrate Negative (NEGATIVE) 08/06/16 18:35 Urine Bilirubin Negative (NEGATIVE) 08/06/16 18:35 Urine Urobilinogen 0.2 E.U./dL (<1 E.U./dL) 08/06/16 18:35 Ur Leukocyte Esterase Negative Bishop/uL (NEGATIVE) 08/06/16 18:35 Urine RBC 1 - 3 /hpf (0-2) 08/06/16 18:35 Urine WBC 0 - 2 /hpf (0-6) 08/06/16 18:35 Ur Epithelial Cells 0 - 2 /hpf (0-5) 08/06/16 18:35 Urine Bacteria Trace (NEG) 08/06/16 18:35 Urine Other Usperm 08/06/16 18:35 Urine Opiates Screen Negative (NEGATIVE) 08/06/16 18:35 Urine Methadone Screen Negative (NEGATIVE) 08/06/16 18:35 Ur Barbiturates Screen Negative (NEGATIVE) 08/06/16 18:35 Ur Phencyclidine Scrn Negative (NEGATIVE) 08/06/16 18:35 Ur Amphetamines Screen Negative (NEGATIVE) 08/06/16 18:35 U Benzodiazepines Scrn Negative (NEGATIVE) 08/06/16 18:35 U Oth Cocaine Metabols Negative (NEGATIVE) 08/06/16 18:35 U Cannabinoids Screen Negative (NEGATIVE) 08/06/16 18:35 Ur L.pneumophila Ag Negative (NEGATIVE) 08/06/16 23:30 - Hospital Course Hospital Course: 50 y/o male with PMH of hypertension, hyperlipidemia and diabetes mellitus type 2 presents with shortness of breath and nonproductive cough. Pt was placed on Lasix and symptoms improved. 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 Echo LVEF was 52%. Stress test was done. Stress test showed abnormal EF 40% with cardiomyopathy and pt was instructed to f/u w Dr. Yoo for outpatient cardiac cath. Pt was also seen by psychiatrist for psychosis. Pt was cleared to DC. Pt denies F/C/N/V/D/SOB/CP. Ambulating. TOlerating PO. Discharge Exam - Head Exam Head Exam: ATRAUMATIC, NORMAL INSPECTION, NORMOCEPHALIC - Eye Exam Eye Exam: EOMI, Normal appearance, PERRL Pupil Exam: NORMAL ACCOMODATION, PERRL - Respiratory Exam Respiratory Exam: Clear to PA & Lateral, NORMAL BREATHING PATTERN, UNREMARKABLE - Cardiovascular Exam Cardiovascular Exam: REGULAR RHYTHM, +S1, +S2 - GI/Abdominal Exam GI & Abdominal Exam: Normal Bowel Sounds - Neurological Exam Neurological exam: Alert, CN II-XII Intact, Normal Gait, Oriented x3, Reflexes Normal - Psychiatric Exam Psychiatric exam: Normal Affect, Normal Mood - Skin Skin Exam: Dry, Intact, Normal Color, Warm Discharge Plan - Discharge Medications Prescriptions: Furosemide [Lasix] 20 mg PO DAILY #14 tablet Insulin Detemir [Levemir] 20 unit SC HS #14 ml Atorvastatin [Lipitor] 40 mg PO DIN #14 tab Metoprolol Tartrate [Lopressor] 25 mg PO BID #30 tab risperiDONE [RisperDAL Tab] 2 mg PO BID #30 tab Lisinopril [Zestril] 40 mg PO DAILY #14 tab - Follow Up Plan Condition: FAIR Disposition: HOME/ ROUTINE Instructions: Heart Failure (DC), Heart Failure (GEN), Pacemaker (DC), Pacemaker (GEN), Pulmonary Edema (DC), Pulmonary Edema (GEN), Ascites (DC), Ascites (GEN) Additional Instructions: F/U with Dr. Yoo Float Nurse in 2 weeks for outpatient cardiac cath -F/U with Primary Medical Doctor in 2 weeks for Rx refill and to check Basic metabolic panel -Take Lisinopril/Lopressor/Lipitor daily -Insulin 20 unit before bed: Accucheck 3 times a day and keep record for your Primary Medical Doctor -Take Lasix 20mg PO daily -Take risperil daily. F/U with your Psychiatrist. Referrals: Raeann Moyer MD [Primary Care Provider] - Cameron Yoo MD [Staff Provider] - <Ray EATSON,Cameron - Last Filed: 08/11/16 16:38> Provider - Provider Date of Admission: 08/06/16 20:48 Attending physician: Cameron Bell MD Primary care physician: Raeann Moyer MD Hospital Course - Lab Results Lab Results: Micro Results 08/06/16 22:00 Urine,Clean Catch Urine Culture - Final No Growth (<1,000 CFU/ML) Most Recent Lab Values WBC 9.2 10^3/ul (4.5-11.0) 08/10/16 15:45 RBC 4.34 10^6/uL (3.5-6.1) 08/10/16 15:45 Hgb 12.7 gm/dL (14.0-18.0) L 08/10/16 15:45 Hct 37.4 % (42.0-52.0) L 08/10/16 15:45 MCV 86.2 fL (80.0-105.0) 08/10/16 15:45 MCH 29.3 pg (25.0-35.0) 08/10/16 15:45 MCHC 34.0 g/dl (31.0-37.0) 08/10/16 15:45 RDW 12.2 % (11.5-14.5) 08/10/16 15:45 Plt Count 337 10^3/uL (120.0-450.0) 08/10/16 15:45 MPV 9.2 fl (7.0-11.0) 08/10/16 15:45 Gran % 63.9 % (50.0-68.0) 08/09/16 06:30 Lymph % (Auto) 21.7 % (22.0-35.0) L 08/09/16 06:30 Pepin % (Auto) 8.3 % (1.0-6.0) H 08/09/16 06:30 Eos % (Auto) 5.8 % (1.5-5.0) H 08/09/16 06:30 Baso % (Auto) 0.3 % (0.0-3.0) 08/09/16 06:30 Gran # 6.44 (1.4-6.5) 08/09/16 06:30 Lymph # 2.2 (1.2-3.4) 08/09/16 06:30 Pepin # 0.8 (0.1-0.6) H 08/09/16 06:30 Eos # 0.6 (0.0-0.7) 08/09/16 06:30 Baso # 0.03 K/mm3 (0.0-2.0) 08/09/16 06:30 PT 11.3 Seconds (9.9-11.8) 08/06/16 16:10 INR 1.05 (0.93-1.08) 08/06/16 16:10 APTT 26.7 Seconds (23.7-30.8) 08/06/16 16:10 D-Dimer, Quantitative 0.84 mg/L FEU (0-0.50) H 08/06/16 16:10 pCO2 26 mm/Hg (35-45) L 08/07/16 12:09 pO2 74.0 mm/Hg (80-100) L 08/07/16 12:09 HCO3 17.7 mmol/L (21-28) L 08/07/16 12:09 ABG pH 7.44 (7.35-7.45) 08/07/16 12:09 ABG Total CO2 18.5 mmol.L (22-28) L 08/07/16 12:09 ABG O2 Saturation 96.3 % (95-98) 08/07/16 12:09 ABG O2 Content 17.5 ML/dl (15-23) 08/07/16 12:09 ABG Base Excess -4.9 mmol/L (-2.0-3.0) L 08/07/16 12:09 ABG Hemoglobin 13.2 g/dL (11.7-17.4) 08/07/16 12:09 ABG Carboxyhemoglobin 1.8 % (0.5-1.5) H 08/07/16 12:09 POC ABG HHb (Measured) 3.6 % (0-5) 08/07/16 12:09 ABG Methemoglobin 0.7 % (0.0-3.0) 08/07/16 12:09 ABG O2 Capacity 18.2 mL/dl (16-24) 08/07/16 12:09 Hgb O2 Saturation 93.9 % (95.0-98.0) L 08/07/16 12:09 FiO2 21.0 % 08/07/16 12:09 Sodium 131 mmol/L (132-148) L 08/11/16 10:36 Potassium 5.0 mmol/L (3.6-5.0) 08/11/16 10:36 Chloride 98 mmol/L (98-107) 08/11/16 10:36 Carbon Dioxide 27 mmol/L (21-33) 08/11/16 10:36 Anion Gap 11 (10-20) 08/11/16 10:36 BUN 34 mg/dL (7-21) H 08/11/16 10:36 Creatinine 1.5 mg/dL (0.5-1.4) H 08/11/16 10:36 Est GFR ( Amer) > 60 08/11/16 10:36 Est GFR (Non-Af Amer) 50 08/11/16 10:36 POC Glucose (mg/dL) 328 mg/dL (65-110) H 08/11/16 11:23 Random Glucose 381 mg/dL (70-110) H* 08/11/16 10:36 Hemoglobin A1c 9.2 % (4.2-6.5) H 08/08/16 06:40 Lactic Acid 2.1 mmol/L (0.7-2.1) 08/07/16 15:55 Calcium 8.6 mg/dL (8.4-10.5) 08/11/16 10:36 Phosphorus 4.2 mg/dL (2.5-4.5) 08/09/16 06:30 Magnesium 2.0 mg/dL (1.7-2.2) 08/09/16 06:30 Total Bilirubin 0.6 mg/dL (0.2-1.3) 08/09/16 06:30 AST 31 U/L (15-59) 08/09/16 06:30 ALT 37 U/L (7-56) 08/09/16 06:30 Alkaline Phosphatase 81 U/L (38-133) 08/09/16 06:30 Lactate Dehydrogenase 399 U/L (333-699) 08/07/16 06:00 Total Creatine Kinase 153 U/L (35-230) 08/07/16 06:00 Troponin I 0.02 ng/mL D 08/07/16 06:00 NT-Pro-B Natriuret Pep 1410 pg/mL (0-450) H 08/08/16 06:40 Total Protein 6.7 g/dL (5.8-8.3) 08/09/16 06:30 Albumin 3.3 g/dL (3.0-4.8) 08/09/16 06:30 Globulin 3.4 gm/dL 08/09/16 06:30 Albumin/Globulin Ratio 1.0 (1.1-1.8) L 08/09/16 06:30 Triglycerides 132 mg/dL (35-160) 08/08/16 06:40 Cholesterol 173 mg/dL (130-200) 08/08/16 06:40 LDL Cholesterol Direct 105 mg/dL (0-129) 08/08/16 06:40 HDL Cholesterol 41 mg/dL (29-60) 08/08/16 06:40 Lipase 47 U/L (23-300) 08/06/16 16:10 Procalcitonin < 0.05 NG/ML (0.19-0.49) L 08/06/16 23:30 TSH 3rd Generation 2.25 mIU/mL (0.46-4.68) 08/08/16 06:40 Urine Color Yellow (YELLOW) 08/06/16 18:35 Urine Appearance Clear (CLEAR) 08/06/16 18:35 Urine pH 6.0 (4.7-8.0) 08/06/16 18:35 Ur Specific [employer] 1.025 (1.005-1.035) 08/06/16 18:35 Urine Protein 100 mg/dL (<30 mg/dL) H 08/06/16 18:35 Urine Glucose (UA) >=1000 mg/dL (NEGATIVE) 08/06/16 18:35 Urine Ketones Trace mg/dL (NEGATIVE) H 08/06/16 18:35 Urine Blood Moderate (NEGATIVE) H 08/06/16 18:35 Urine Nitrate Negative (NEGATIVE) 08/06/16 18:35 Urine Bilirubin Negative (NEGATIVE) 08/06/16 18:35 Urine Urobilinogen 0.2 E.U./dL (<1 E.U./dL) 08/06/16 18:35 Ur Leukocyte Esterase Negative Bishop/uL (NEGATIVE) 08/06/16 18:35 Urine RBC 1 - 3 /hpf (0-2) 08/06/16 18:35 Urine WBC 0 - 2 /hpf (0-6) 08/06/16 18:35 Ur Epithelial Cells 0 - 2 /hpf (0-5) 08/06/16 18:35 Urine Bacteria Trace (NEG) 08/06/16 18:35 Urine Other Usperm 08/06/16 18:35 Urine Opiates Screen Negative (NEGATIVE) 08/06/16 18:35 Urine Methadone Screen Negative (NEGATIVE) 08/06/16 18:35 Ur Barbiturates Screen Negative (NEGATIVE) 08/06/16 18:35 Ur Phencyclidine Scrn Negative (NEGATIVE) 08/06/16 18:35 Ur Amphetamines Screen Negative (NEGATIVE) 08/06/16 18:35 U Benzodiazepines Scrn Negative (NEGATIVE) 08/06/16 18:35 U Oth Cocaine Metabols Negative (NEGATIVE) 08/06/16 18:35 U Cannabinoids Screen Negative (NEGATIVE) 08/06/16 18:35 Ur L.pneumophila Ag Negative (NEGATIVE) 08/06/16 23:30 Attending/Attestation - Attestation I have personally seen and examined this patient.: Yes I have fully participated in the care of the patient.: Yes I have reviewed all pertinent clinical information, including history, physical exam and plan: Yes Notes (Text): Patient was seen and examined with medical administrative technician .Agreed with resident assessment and plan. 50 y/o male with PMH of hypertension, hyperlipidemia , diabetes mellitus type 2 and schizophrenia was admitted with cough /dyspnea was found to have elevated BNP, bilateral pleural effusion on CT angio chest, was treated with IV lasix for diastolic CHF , initially he was also treated for possible Pneumonia, however his procalcitonin level comes back normal and his cultures were negative.His antibiotics were discontinued.He was seen in consultation with cardiology, underwent nuclear stress test yesterday which showed fixed defect, patient never had any chest pain, he is ambulatory on floor, cardiology has planned for out patient cardiac cath in 2 weeks.He is euvolemic at the time of discharge.His creatinin increased to 1.5, his lasix dose has been decreased to 20 mg po daily.He has mild hyponatremia due to overdiuresis but he is asymptomatic.He will have repeat BMP with PCP in 3-4 days.He will follow up with cardiology as out patient. He was also evaluated by Psychiatry as he was having hallucination , his Resperdal dose was increased by Psychiatry, his hallucination are resolved at the time of discharge. Management plan was discussed in detail with patient Education was provided.
--- NOTE | 2016-08-11 10:26 | PN ---
DATE: 08/11/2016 REASON FOR CONSULTATION AND FOLLOWUP: Shortness of breath, cardiac evaluation. BRIEF CLINICAL HISTORY: This is a 50-year-old male with past medical history significant for hyperte nsion, hyperlipidemia, obesity, came in with complaint of 2 days history of shortness of breath. CAT scan initially showed bilateral pleural effusion, pulmonary infiltrate, treated with IV Lasix, later on cleared. The patient underwent echocardiography done on 05/16/2016 that showed ejection fraction 52%, diastolic dysfunction, mild tricuspid regurgitation, right ventricular systolic pressure of 32. The patient yesterday underwent a stress test that showed essentially fixed defect, but EF 39%. PHYSICAL EXAMINATION: VITAL SIGNS: Temperature afebrile, heart rate 97, blood pressure 130/86. HEENT: PERRLA. Extraocular muscles intact. NECK: Supple. No carotid bruits. No thyromegaly. CHEST: Clear to auscultation. HEART: S1, S2 regular. ABDOMEN: Soft. EXTREMITIES: Clubbing and cyanosis negative. BLOOD WORKUP: WBC 9.2, hemoglobin 12.3, hematocrit 37.4, platelet count 337. Chemistry shows sodium 130, potassium 4.5, chloride 90, carbon dioxide 23, anion gap of 14, BUN 39, creatinine 1.2. IMPRESSION: Decompensated congestive heart failure, acute on chronic systolic dysfunction, ejection fraction 39% by stress test and by echo 52%, no reversible ischemia but left ventricular dysfunction. Etiology of left ventricular dysfunction is not known, possibly secondary to alcohol related, but c annot rule out underlying coronary artery disease. PLAN: Discussed at length with the patient. We will discharge the patient and schedule a cardiac ca theterization in 2 weeks after the authorization is obtained and will do the cardiac catheterization as outpatient to assess LV function. Will follow with you. Thank you, Dr. Ureña, for providing the opportunity in taking care of this patient. Will follow with you. Cameron Yoo MD cc: [id number] TT: 08/11/2016 10:25:38 Confirmation # [id number] Dictation # [id number] mn
[2016-08-11] MEDS: Insulin Detemir 100 units/ml Vial (Levemir) SC SCH (10:34)
[2016-08-11] MEDS: Enoxaparin 40 mg Syringe SC SCH (10:35)
[2016-08-11 10:54] LABS: BLOOD UREA NITROGEN 34 mg/dL (7-21); CALCIUM 8.6 mg/dL (8.4-10.5); CARBON DIOXIDE 27 mmol/L (21-33); CHLORIDE 98 mmol/L (98-107); GFR AFRICAN-AMERICAN > 60; SODIUM 131 mmol/L (132-148)
[2016-08-11 11:08] LABS: GLUCOSE,RANDOM 381 mg/dL (70-110)
[2016-08-11 13:23] VITALS: BP 137/83; PULSE 70; TEMP 98
== END 2016-08-11 17:30 | disposition home or self-care (01) | DRG 544 ==
LOC: ED 15:58 → ERH 20:48 → 2RNO 08-07 17:22
PROVIDERS: ADMIT Hospitalist; ATTEND Internal Medicine
DX: I11.0 Hypertensive heart disease with heart failure (principal); J18.9 Pneumonia, unspecified organism; I50.43 Acute on chronic combined systolic (congestive) and diastolic (congestive) heart failure; E11.65 Type 2 diabetes mellitus with hyperglycemia; I07.1 Rheumatic tricuspid insufficiency; E87.1 Hypo-osmolality and hyponatremia; F20.9 Schizophrenia, unspecified; E83.42 Hypomagnesemia; E78.5 Hyperlipidemia, unspecified; F29 Unspecified psychosis not due to a substance or known physiological condition; K21.9 Gastro-esophageal reflux disease without esophagitis; M13.862 Other specified arthritis, left knee; M13.861 Other specified arthritis, right knee; E66.9 Obesity, unspecified; Z87.891 Personal history of nicotine dependence; Z68.30 Body mass index [BMI] 30.0-30.9, adult; Z79.4 Long term (current) use of insulin; Z86.73 Personal history of transient ischemic attack (TIA), and cerebral infarction without residual deficits

== ENCOUNTER 2016-08-11 19:34 | Emergency (ER) | payer MEDICAID ==
[2016-08-11 19:35] VITALS: BMI 31.0
--- NOTE | 2016-08-11 19:59 | ED PDOC ---
Arrival/HPI - General Time Seen by Provider: 08/11/16 19:56 Historian: Patient - History of Present Illness Narrative History of Present Illness (Text): 08/11/16 19:59 Srinivasa Alvarado is a 50 year old male, whose past medical history includes schizophrenia, hypertension, hyperlipidemia and diabetes mellitus type 2, who presents to the Emergency department brought in by EMS for aggressive behavior. Patient states his sister called the police on him after he was "loud" and yelling at home tonight. Patient was recently discharged from the hospital on and was seen by psychiatry during his stay for psychotic symptoms. Patient's Risperdal dose was increased and patient was cleared. Patient denies any suicidal ideation, homicidal ideation, fever, chills, chest pain, shortness of breath, nausea, vomiting, diarrhea, urinary symptoms, back pain, neck pain, headache, dizziness, or any other complaints. Time/Duration: Other (tonight) Symptom Onset: Gradual Symptom Course: Unchanged Activities at Onset: Rest, Light Context: Home Past Medical History - Provider Review Nursing Documentation Reviewed: Yes - Infectious Disease Hx of Infectious Diseases: None - Tetanus Immunization Tetanus Immunization: Unknown - Cardiac Hx Hypertension: Yes - Pulmonary Other/Comment: x smoker - Last smoked 8 years ago - Neurological HX Cerebrovascular Accident: No - HEENT Hx Cataracts: Yes - Renal Hx Renal Failure: No - Endocrine/Metabolic Hx Diabetes Mellitus Type 2: Yes - Hematological/Oncological Hx Cancer: No - Integumentary Hx Dermatological Disorder: No - Musculoskeletal/Rheumatological Hx Falls: No - Gastrointestinal Hx Gastroesophageal Reflux: No - Genitourinary/Gynecological Hx Genitourinary Disorders: No - Psychiatric Hx Substance Use: No - Past Surgical History Past Surgical History: No Previous - Anesthesia Hx Anesthesia: No Hx Anesthesia Reactions: No Hx Malignant Hyperthermia: No - Suicidal Assessment Feels Threatened In Home Enviroment: No Family/Social History - Physician Review Nursing Documentation Reviewed: Yes Family/Social History: No Known Family HX Smoking Status: Former Smoker Hx Alcohol Use: Yes (occasional) Hx Substance Use: No Hx Substance Use Treatment: No Allergies/Home Meds Allergies/Adverse Reactions: Allergies No Known Allergies Allergy (Verified 05/24/16 18:59) Review of Systems - Physician Review All systems were reviewed & negative as marked: Yes - Review of Systems Constitutional: Normal Eyes: Normal ENT: Normal Respiratory: Normal. absent: SOB, Cough Cardiovascular: Normal. absent: Chest Pain Gastrointestinal: Normal. absent: Abdominal Pain, Diarrhea, Nausea, Vomiting Genitourinary Male: Normal. absent: Dysuria, Frequency, Hematuria, Urinary Output Changes Musculoskeletal: Normal. absent: Back Pain, Neck Pain Skin: Normal. absent: Rash Neurological: Normal. absent: Headache, Dizziness Endocrine: Normal Hemo/Lymphatic: Normal Psychiatric: Other (+aggresive) Physical Exam Vital Signs Reviewed: Yes Vital Signs Temp Pulse Resp BP Pulse Ox 08/12/16 05:10 98.1 F 80 19 112/70 98 08/12/16 03:12 98 F 80 H 129/78 99 08/11/16 22:33 98.4 F 80 20 139/72 99 08/11/16 19:58 97.5 F L 98 H 18 96 Temperature: Afebrile Blood Pressure: Normal Pulse: Regular Respiratory Rate: Normal Appearance: Positive for: Well-Appearing, Non-Toxic, Comfortable Pain Distress: None Mental Status: Positive for: Alert and Oriented X 3 - Systems Exam Head: Present: Atraumatic, Normocephalic Pupils: Present: PERRL Extroacular Muscles: Present: EOMI Conjunctiva: Present: Normal Mouth: Present: Moist Mucous Membranes Neck: Present: Normal Range of Motion Respiratory/Chest: Present: Clear to Auscultation, Good Air Exchange. No: Respiratory Distress, Accessory Muscle Use Cardiovascular: Present: Regular Rate and Rhythm, Normal S1, S2. No: Murmurs Abdomen: Present: Normal Bowel Sounds. No: Tenderness, Distention, Peritoneal Signs Back: Present: Normal Inspection Upper Extremity: Present: Normal Inspection. No: Cyanosis, Edema Lower Extremity: Present: Normal Inspection. No: Edema Neurological: Present: GCS=15, CN II-XII Intact, Speech Normal Skin: Present: Warm, Dry, Normal Color. No: Rashes Psychiatric: Present: Alert, Oriented x 3, Normal Insight, Normal Concentration Medical Decision Making ED Course and Treatment: 08/11/16 19:59 Impression: 50 year old male brought in by EMS for aggressive behavior tonight. Differential Diagnosis include but are not limited to: Plan: -- EKG -- Labs, alcohol level -- Urinalysis, urine drug screen -- Reassess and disposition Prior Visits: Notes and results from previous visits were reviewed. On 08/06/2016, pt was seen in the Emergency department for shortness of breath and cough. Pt was admitted to the hospital for further evaluation. Progress Notes: 08/11/16 20:46 Reviewed EKG, NSR at [address] bpm[address] Non-specific ST/T wave changes. 08/11/16 22:30 Reviewed labs, alcohol<10, negative urine tox screen. Labs within normal limits. pt seen by pes , [place] [facility] [place] 08/12/16 06:42 - Lab Interpretations Lab Results: 08/11/16 20:15 08/11/16 20:15 Lab Results 08/11/16 20:15: WBC 9.0, RBC 4.35, Hgb 12.8 L, Hct 37.0 L, MCV 85.1, MCH 29.4, MCHC 34.6, RDW 12.1, Plt Count 331, MPV 9.1, Gran % 68.2 H, Lymph % (Auto) 19.3 L, [place] % (Auto) 7.3 H, Eos % (Auto) 4.9, Baso % (Auto) 0.3, Gran # 6.13, Lymph # 1.7, [place] # 0.7 H, Eos # 0.4, Baso # 0.03, Sodium 129 L, Potassium 4.6, Chloride 96 L, Carbon Dioxide 25, Anion Gap 13, BUN 39 H, Creatinine 1.6 H, Est GFR ( Amer) 56, Est GFR (Non-Af Amer) 46, Random Glucose 326 H*, Calcium 8.4, Total Bilirubin 0.6, AST 23, ALT 43, Alkaline Phosphatase 76, Total Protein 6.6, Albumin 3.4, Globulin 3.2, Albumin/Globulin Ratio 1.1, Salicylates < 1 L, Acetaminophen < 10.0 L, Alcohol, Quantitative < 10 08/11/16 20:10: Urine Color Yellow, Urine Appearance Clear, Urine pH 6.0, Ur Specific [place] 1.020, Urine Protein 100 H, Urine Glucose (UA) 250 H, Urine Ketones Negative, Urine Blood Negative, Urine Nitrate Negative, Urine Bilirubin Negative, Urine Urobilinogen 0.2, Ur Leukocyte Esterase Negative, Urine RBC 0 - 2, Urine WBC Negative, Ur Epithelial Cells 0 - 2, Urine Bacteria Neg, Urine Opiates Screen Negative, Urine Methadone Screen Negative, Ur Barbiturates Screen Negative, Ur Phencyclidine Scrn Negative, Ur Amphetamines Screen Negative , U Benzodiazepines Scrn Negative, U Oth Cocaine Metabols Negative, U Cannabinoids Screen Negative I have reviewed the lab results: Yes - RAD Interpretation Radiology Orders: 08/12/16 06:06 CHEST PORTABLE [RAD] Stat - EKG Interpretation EKG Interpretation (Text): EKG: Ordered, reviewed, and independently interpreted the EKG. Rate : 99 BPM Rhythm : NSR Interpretation : Non-specific ST/T wave changes. Comparison : No acute change from previous EKG on 08/06/2016. Interpreted by ED Physician: Yes Type: 12 lead EKG - Transfer of Care Patient signed out to Dr:: [facility] - Scribe Statement The provider has reviewed the documentation as recorded by the Rubenibsabrina Alarcon Provider Attestation: All medical record entries made by the Rubenibsabrina were at my direction and personally dictated by me. I have reviewed the chart and agree that the record accurately reflects my personal performance of the history, physical exam, medical decision making, and the department course for this patient. I have also personally directed, reviewed, and agree with the discharge instructions and disposition. Disposition/Present on Arrival - Present on Arrival Any Indicators Present on Arrival: No History of DVT/PE: No History of Uncontrolled Diabetes: Yes Urinary Catheter: No History Surgical Site Infection Following: None - Disposition Have Diagnosis and Disposition been Completed?: Yes Diagnosis: Schizophrenia Disposition Time: 07:00 Condition: GOOD
[2016-08-11 20:29] LABS: ADD MANUAL DIFF? NO
[2016-08-11 20:31] LABS: URINE BILIRUBIN NEGATIVE (NEGATIVE); URINE BLOOD NEGATIVE (NEGATIVE); URINE GLUCOSE (UA) 250 mg/dL (NEGATIVE); URINE KETONE NEGATIVE (NEGATIVE); URINE LEUKOCYTE ESTERASE NEGATIVE Leu/uL (NEGATIVE); URINE PROTEIN 100 mg/dL (<30 mg/dL); URINE UROBILINOGEN 0.2 E.U./dL (<1 E.U./dL)
[2016-08-11 20:32] LABS: URINE APPEARANCE CLEAR (CLEAR); URINE COLOR YELLOW (YELLOW)
[2016-08-11 20:34] LABS: BASO # 0.03 K/mm3 (0.0-2.0); BASO % 0.3 % (0.0-3.0); EOS # 0.4 (0.0-0.7); EOS % 4.9 % (1.5-5.0); GRAN # 6.13 (1.4-6.5); GRAN % 68.2 % (50.0-68.0); LYMPH # 1.7 (1.2-3.4); LYMPH % 19.3 % (22.0-35.0); MEAN CELL VOLUME 85.1 fL (80.0-105.0); MEAN CORPUSCULAR HEMOGLOBIN 29.4 pg (25.0-35.0); MEAN CORPUSCULAR HGB CONC 34.6 g/dl (31.0-37.0); MEAN PLATELET VOLUME 9.1 fl (7.0-11.0); MONO # 0.7 (0.1-0.6); MONO % 7.3 % (1.0-6.0); PLATELET COUNT 331 10^3/uL (120.0-450.0); RED CELL DISTRIBUTION WIDTH 12.1 % (11.5-14.5)
[2016-08-11 20:47] LABS: ALB/GLOB RATIO 1.1 (1.1-1.8); BILIRUBIN,TOTAL 0.6 mg/dL (0.2-1.3); CALCIUM 8.4 mg/dL (8.4-10.5); POTASSIUM 4.6 mmol/L (3.6-5.0); TOTAL PROTEIN 6.6 g/dL (5.8-8.3)
[2016-08-11 20:55] LABS: URINE BACTERIA NEG (NEG); URINE EPITHELIAL CELLS 0 - 2 /hpf (0-5); URINE RBC 0 - 2 /hpf (0-2); URINE WBC NEGATIVE /hpf (0-6)
[2016-08-12] MEDS ORDERED: Sodium Chloride 0.9% 1,000 ML IV ONE (07:40)
[2016-08-12] MEDS ORDERED: Insulin Regular 1 UNITS/0.01 ML ML SC STA (07:41)
--- NOTE | 2016-08-12 07:59 | RAD ---
HISTORY: cp COMPARISON: No prior. FINDINGS: LUNGS: No active pulmonary disease. PLEURA: No significant pleural effusion identified, no pneumothorax apparent. CARDIOVASCULAR: Normal. OSSEOUS STRUCTURES: No significant abnormalities. VISUALIZED UPPER ABDOMEN: Normal. OTHER FINDINGS: None. IMPRESSION: No active disease.
[2016-08-12 09:09] VITALS: RESP 18
--- NOTE | 2016-08-12 14:59 | CARD ---
APPROVED REPORT EKG Measurement Heart [id number] <Conclusion> Sinus rhythm with occasional premature ventricular complexes Possible Left atrial enlargement Nonspecific T wave abnormality Abnormal ECG
[2016-08-12 17:15] VITALS: BP 145/97; PULSE 93; TEMP 98.2; O2SAT 97
[2016-08-12] MEDS ORDERED: Insulin Detemir 100 units/ml Vial (Levemir) SC SCH (18:00)
== END 2016-08-12 17:24 | disposition short-term general hospital (02) ==
LOC: ED 19:34
DX: F20.9 Schizophrenia, unspecified (principal); I10 Essential (primary) hypertension; E78.5 Hyperlipidemia, unspecified; E11.9 Type 2 diabetes mellitus without complications; Z87.891 Personal history of nicotine dependence
CPT/HCPCS: 71010; 80053; 80320; 80324; 80329; 80345; 80346; 80349; 80353; 80358; 80361; 81001; 82948; 83992; 85025; 93005; 96360; 96361; 96372; 99284; J2060; J7040

== ENCOUNTER 2016-09-21 06:05 | Day surgery (SDC) | payer MEDICAID ==
[2016-09-21] MEDS ORDERED: Lidocaine 2% Inj (20ml) ONE (07:22)
[2016-09-21] MEDS ORDERED: Nitroglycerin 50mg in D5W 50 MG/250 ML BOTTLE IV ONE (07:23)
[2016-09-21] MEDS ORDERED: Iohexol 350mgl/ml 50 ML ONE (07:23)
--- NOTE | 2016-09-21 07:33 | HP ---
REASON FOR ADMISSION: Left heart catheterization, possible angioplasty, abnormal stress test, cardio myopathy. BRIEF CLINICAL HISTORY: This is a 50-year-old male with past medical history significant for hyperte nsion, hyperlipidemia, obesity, who initially admitted on 08/2016 with acute decompensated congestive heart failure, bilateral pleural effusion. The patient had echocardiography that shows ejection fra ction 50%. The patient underwent a stress test that shows a decreased LV function, ejection fraction 39%. The patient is scheduled for cardiac catheterization as outpatient. PAST MEDICAL HISTORY: Significant for hypertension, hyperlipidemia, diabetes, obesity, cardiomyopath y is not clear. SOCIAL HISTORY: Denies any history of alcohol abuse. CURRENT MEDICATIONS: The patient is taking aspirin 81 mg daily, atorvastatin 40 mg daily, metoprolol tartrate 25 mg daily, lisinopril 40 mg daily, trazodone, Risperdal, insulin, gabapentin. Previous cardiac workup as follows: The patient underwent a stress test that showed abnormal SPECT m yocardial perfusion study. Moderate left ventricular dysfunction, ejection fraction 39%. The patien t underwent echocardiography that showed normal left ventricular function, ventricle revealed diastol ic dysfunction, mild tricuspid regurgitation, mitral valve structure normal, obesity, atrial fibrill ation, abnormal stress test, mitral and tricuspid regurgitation, diabetes, hypertension, hyperlipidem ia. PHYSICAL EXAMINATION: VITAL SIGNS: Temperature afebrile, heart rate ____, blood pressure 130/80. HEENT: PERRLA. Extraocular muscles intact. NECK: Supple. No carotid bruits. No thyromegaly. CHEST: Clear to auscultation. HEART: S1, S2 regular. ABDOMEN: Soft. EXTREMITIES: Clubbing and cyanosis negative. BLOOD WORKUP: Pending. IMPRESSION: Abnormal stress test, cardiomyopathy, rule out underlying coronary artery disease, diabe alfredo, hypertension, hyperlipidemia, obesity. RECOMMENDATION: We will give 300 mg of Plavix, aspirin. Risks, benefits, alternatives discussed sunita guy the patient. The patient will proceed for cardiac catheterization. Further recommendation after c ardiac catheterization. We will follow with you. Thank you, Dr. Ureña, for providing the opportunity in taking care of the patient. We will follow sunita guy you. Cameron Yoo MD cc: [id number] TT: 09/20/2016 20:58:49 jn
[2016-09-21] MEDS ORDERED: Midazolam 2 MG/2 ML VIAL ONE (07:46)
[2016-09-21] MEDS ORDERED: Iohexol 350 MG/100 ML VIAL ONE (08:23)
[2016-09-21] MEDS ORDERED: Eptifibatide 20 mg/10mL Inj IVP ONE (08:23)
[2016-09-21] MEDS ORDERED: Oxycodone/Acetaminophen 5/325 mg Tab PO PRN (09:00)
[2016-09-21] MEDS ORDERED: Sodium Chloride 0.9% 500 ML IV SCH (09:00)
[2016-09-21] MEDS ORDERED: Aspirin 325 mg EC Tablets PO SCH (10:00)
[2016-09-21] MEDS ORDERED: Potassium Chloride 20 mEq ER Tab PO ONE (14:00)
--- NOTE | 2016-09-21 15:23 | CARDCATH ---
PROCEDURE DATE: 09/21/2016 OPERATIVE PHYSICIAN: Cameron Yoo MD MEDICAL RECORD RETRIEVAL SPECIALIST: Jeremy Irvin, centrifugal chiller technician. REFFERING PHYSICIAN: Dr. Cameron Bell MD BRIEF CLINICAL HISTORY: This is a 50-year-old mildly to moderately obese male with a past medical history significant for hypertension, diabetes, recently admitted with new onset of congestive heart failure. Initially, patient was diagnosed as pneumonia, but later found with congestive heart failure. The patient underwent noninvasive workup that showed decreased LV function as well as ejection fraction 39% and abnormal stress test, so patient is scheduled for cardiac catheterization. Initially, patient was scheduled for cardiac catheterization 2-3 weeks ago, but patient was in psychiatric rehab facility, so it was postponed and is scheduled today for cardiac catheterization. PROCEDURE PERFORMED: Left heart catheterization, angioplasty of circumflex. PROCEDURE TECHNIQUE: The patient was put in supine position after informed consent being obtained. Risks, benefits and alternatives were discussed with the patient and the patient's family. Left radial artery was accessed with Seldinger technique, then a Glidesheath was placed and then transparent dressing was applied to the Glidesheath and then left and right Judkin's catheter, pigtail catheter for left heart cath and XB 3.5,6Fr guider as well as used for angioplasty of the circumflex. FINDINGS: As follows: Left main essentially free of significant disease, bifurcates LAD and circumflex. LAD is moderate caliber vessel, essentially free of significant disease, though shows some luminal irregularity but no flow obstructive stenosis noted. Circumflex is a moderately large caliber vessel. Ostial has 70-80% stenosis noted and proximal 0.5 mm distal to ostium [id number] %-90% stenosis noted. Rest of the circumflex is essentially free of significant disease. Right coronary artery dominant large caliber vessel and essentially free of significant disease. LV ejection fraction 35%-40%, LV pressure 120/80, EDP was in the range of 25- 30. In view of above, PTCA of the circumflex was contemplated, 1000 more heparin was given and double Integrilin bolus was given and XB 3.5 guide catheter's catheter was changed and engaged to left main and then Ludge wire was used to cross the lesion and then primary dilatation was done with a sprinter 6/2.5 mm balloon and then predilatation was done at 10 atms after this drug-eluting stent, Resolute 3.5 mm in diameter and 9 mm lengthand deployed at 12 atmos for 20 seconds After this, a NC balloon 6 mm in length and 4.0 mm diameter was taken for post deployment dilatation at 14 atmos for 20 seconds done,with reduction of stenosis from 80-90% pre-procedure to zero, post procedure The patient tolerated the procedure well. After the repeat ACT was checked, found to be 190 seconds, TR band applied, patient returned to the floor in stable condition. SUMMARY: Following procedures were done: 1. Complete left heart catheterization. 2. Stenting of proximal circumflex drug eluting stent through the left radial approach. RECOMMENDATION: Mandatory continue aspirin and Plavix for one year preferably for extended period of time. Also continue Lipitor 40 mg daily. Continue JAYLEN inhibitors. Continue metoprolol. Continue Lasix 40 mg daily. Continue K-Dur 20 mEq daily. Follow up stress test in 6 months to 1 year to ensure patentcy of stentand monitor progression of coronary artery disease. Also suggest evaluation of LV function by MUGA scan or echo in 6 months. If EF remains below 35, consider AICD. Discussed at length with the patient's father, Kolby Herman. Thank you, Dr. Bell, for the opportunity in taking care of this patient. Cameron Yoo MD cc: Cameron Bell M.D. [phone] TT: 09/21/2016 15:21:20 solomon 09/21/2016 14:22:34 CRIS
[2016-09-22 08:46] LABS: INR 1.06 (0.93-1.08); PARTIAL THROMBOPLASTIN TIME 26.6 Seconds (23.7-30.8)
[2016-09-22 12:25] LABS: HEMATOCRIT 35.4 % (42.0-52.0); MEAN CELL VOLUME 83.3 fL (80.0-105.0); MEAN CORPUSCULAR HEMOGLOBIN 28.5 pg (25.0-35.0); MEAN CORPUSCULAR HGB CONC 34.2 g/dl (31.0-37.0); MEAN PLATELET VOLUME 9.4 fl (7.0-11.0); RED CELL DISTRIBUTION WIDTH 12.2 % (11.5-14.5); WHITE BLOOD COUNT 9.5 10^3/ul (4.5-11.0)
[2016-09-22 13:20] LABS: BLOOD UREA NITROGEN 27 mg/dL (7-21); CARBON DIOXIDE 22 mmol/L (21-33); CHLORIDE 102 mmol/L (98-107); GFR AFRICAN-AMERICAN > 60; GLUCOSE,RANDOM 357 mg/dL (70-110); POTASSIUM 4.7 mmol/L (3.6-5.0); SODIUM 134 mmol/L (132-148)
[2016-09-22 13:21] LABS: ALB/GLOB RATIO 1.1 (1.1-1.8); ALKALINE PHOSPHATASE 81 U/L (38-133); ALT/SGPT 76 U/L (7-56); AST/SGOT 44 U/L (15-59); BILIRUBIN,TOTAL 0.4 mg/dL (0.2-1.3); CHOLESTEROL 147 mg/dL (130-200); TOTAL PROTEIN 6.2 g/dL (5.8-8.3)
[2016-09-22 13:24] LABS: BLOOD UREA NITROGEN 26 mg/dL (7-21); CARBON DIOXIDE 23 mmol/L (21-33); CHLORIDE 100 mmol/L (98-107); GFR AFRICAN-AMERICAN > 60; GLUCOSE,RANDOM 286 mg/dL (70-110); POTASSIUM 4.4 mmol/L (3.6-5.0); SODIUM 134 mmol/L (132-148)
[2016-09-22 16:58] LABS: HEMATOCRIT 35.6 % (42.0-52.0); MEAN CELL VOLUME 83.6 fL (80.0-105.0); MEAN CORPUSCULAR HEMOGLOBIN 28.4 pg (25.0-35.0); MEAN PLATELET VOLUME 9.3 fl (7.0-11.0); RED CELL DISTRIBUTION WIDTH 12.2 % (11.5-14.5); WHITE BLOOD COUNT 9.8 10^3/ul (4.5-11.0)
--- NOTE | 2016-09-22 23:00 | CARD ---
APPROVED REPORT EKG Measurement Heart [id number] <Conclusion> Normal sinus rhythm Nonspecific T wave abnormality Abnormal ECG
== END 2016-09-21 17:30 | disposition home or self-care (01) ==
LOC: CATH 06:05 → 2RSO 08:25 → CATH 08:25 → 2RSO 17:30 → CATH 17:30
PROVIDERS: ATTEND Internal Medicine Cardiovascular Disease
DX: I25.10 Atherosclerotic heart disease of native coronary artery without angina pectoris (principal); R94.39 Abnormal result of other cardiovascular function study; I42.9 Cardiomyopathy, unspecified; I10 Essential (primary) hypertension; E11.9 Type 2 diabetes mellitus without complications; E78.5 Hyperlipidemia, unspecified; E66.9 Obesity, unspecified; Z79.82 Long term (current) use of aspirin; Z79.4 Long term (current) use of insulin; I08.1 Rheumatic disorders of both mitral and tricuspid valves; Z68.33 Body mass index [BMI] 33.0-33.9, adult
CPT/HCPCS: 36415; 80053; 80061; 82550; 82948; 85027; 85175; 85610; 85730; 86850; 86900; 93005; 93458; 99152; C1725 ×2; C1769 ×2; C1874; C1887 ×4; C9600; J1327; J1644 ×2; J1940; J2250; J3010; J7040; Q9967 ×3

== ENCOUNTER 2017-11-06 19:00 | Inpatient (IN) | payer MEDICAID ==
[2017-11-06] MEDS ORDERED: Vancomycin 1gm in NS 250ml 1 GM/250 ML BAG IVPB STA (19:49)
[2017-11-06] MEDS ORDERED: Piperacillin/Tazobact 3.375 gm 100 ML IVPB STA (19:49)
--- NOTE | 2017-11-06 20:32 | ED PDOC ---
Arrival/HPI - General Chief Complaint: Lower Extremity Problem/Injury Time Seen by Provider: 11/06/17 19:46 Historian: Patient - History of Present Illness Narrative History of Present Illness (Text): 11/06/17 20:28 51-year-old male with a history of diabetes presents today with a left foot infection. Patient states the other day his sister noticed that there was some blood in the bathroom. The patients sister states that she noticed the blood over 3 weeks and tried to get the patient to come to the ER but he refused. Patient states he checked and didn't see anything. Patient states yesterday he noticed there was a blister on the bottom of the left foot. Patient states he does not have any pain. Patient states today he noticed that there was some redness along the top of the foot. Patient states yesterday had some chills but denies fever. Patient denies headache dizziness or weakness. Denies urinary symptoms. No other complaints. Past Medical History - Provider Review Nursing Documentation Reviewed: Yes - Travel History Have you recently traveled outside [place] w/in the past 3 mons?: No - Infectious Disease Hx of Infectious Diseases: None - Tetanus Immunization Tetanus Immunization: Unknown - Cardiac Hx Pacemaker: No - Pulmonary Other/Comment: x smoker - Last smoked 8 years ago - Neurological Hx Paralysis: No - HEENT Hx Cataracts: Yes - Renal Hx Renal Failure: No - Endocrine/Metabolic Hx Diabetes Mellitus Type 2: Yes - Hematological/Oncological Hx Blood Transfusions: No - Integumentary Hx Dermatological Disorder: No - Musculoskeletal/Rheumatological Hx Musculoskeletal Disorders: No - Gastrointestinal Hx Gastroesophageal Reflux: No - Genitourinary/Gynecological Hx Genitourinary Disorders: No - Psychiatric Hx Depression: No Hx Emotional Abuse: No Hx Physical Abuse: No Hx Substance Use: No - Past Surgical History Past Surgical History: No Previous - Anesthesia Hx Anesthesia Reactions: No Hx Malignant Hyperthermia: No - Suicidal Assessment Feels Threatened In Home Enviroment: No Family/Social History - Physician Review Nursing Documentation Reviewed: Yes Family/Social History: Unknown Family HX Smoking Status: Former Smoker Hx Alcohol Use: Yes (STOPPED SINCE ON PSYCH MEDS) Hx Substance Use: No Hx Substance Use Treatment: No Allergies/Home Meds Allergies/Adverse Reactions: Allergies No Known Allergies Allergy (Verified 05/24/16 18:59) Home Medications: Home Meds Medication Instructions Recorded Confirmed Insulin Glargine, Recombina 0 unit SC ACBD 09/15/16 11/06/17 [Lantus] Atorvastatin [Lipitor] 20 mg PO DAILY 11/06/17 11/06/17 Benztropine [Cogentin] 0.5 mg PO BID 11/06/17 11/06/17 Hydroxyzine HCl [Hydroxyzine HCl] 25 mg PO HS 11/06/17 11/06/17 Metformin HCl [Glucophage Xr] 750 mg PO BID 11/06/17 11/06/17 Risperidone [Risperdal] 0.5 mg PO DAILY 11/06/17 11/06/17 hydrALAZINE [Apresoline] 25 mg PO TID 11/06/17 11/06/17 Review of Systems - Review of Systems Constitutional: absent: Fatigue, Fevers Respiratory: absent: SOB, Cough Cardiovascular: absent: Chest Pain, Palpitations Gastrointestinal: absent: Abdominal Pain, Nausea, Vomiting Genitourinary Male: absent: Dysuria, Frequency, Hematuria Musculoskeletal: absent: Arthralgias, Back Pain, Neck Pain Skin: Skin Lesions, Cellulitis (left foot) Neurological: absent: Headache, Dizziness Psychiatric: absent: Anxiety, Depression, Suicidal Ideation Physical Exam Vital Signs Reviewed: Yes Vital Signs Temp Pulse Resp BP Pulse Ox 11/06/17 19:26 98.8 F 89 18 159/90 H 98 Temperature: Afebrile Blood Pressure: Hypertensive Pulse: Regular Respiratory Rate: Normal Appearance: Positive for: Well-Appearing, Non-Toxic, Comfortable Pain Distress: None Mental Status: Positive for: Alert and Oriented X 3 - Systems Exam Head: Present: Atraumatic Mouth: Present: Moist Mucous Membranes Neck: Present: Normal Range of Motion Respiratory/Chest: Present: Clear to Auscultation Cardiovascular: Present: Regular Rate and Rhythm Abdomen: No: Tenderness, Rebound, Guarding Back: Present: Normal Inspection Upper Extremity: Present: Normal ROM Lower Extremity: Present: CALF TENDERNESS, Swelling, Erythema, Capillary Refill < 2 s, Other (left foot; there is a blister type lesion noted to the plantar aspect of the left foot along the MTP region with purulent discharge noted. + surrounding erythema extending along the dorsal aspect of the foot. + edema. ) Neurological: Present: GCS=15, Speech Normal Skin: Present: Warm, Dry, Normal Color. No: Rashes Psychiatric: Present: Alert, Oriented x 3 Medical Decision Making ED Course and Treatment: 11/06/17 20:33 51yr old diabetic male with infected foot wound cbc: wbc:12.5 cmp: bun; 34 cr; 2.6 blood cultures pending wound culture pending xray left foot; no fracture duplex left leg; no dvt verbal report from US tech. pt started on vancomycin and zosyn iV. case discussed with dr. Marilee vail. accepts admission for foot wound, cellulitis. impression; cellulitis, foot, infected blister of foot, renal insuffiency admit to med/surg - Lab Interpretations Lab Results: 11/06/17 20:34 11/06/17 20:34 Lab Results 11/06/17 20:34: WBC 12.5 H D, RBC 3.74, Hgb 10.8 L, Hct 31.3 L, MCV 83.7, MCH 28.9, MCHC 34.5, RDW 11.8, Plt Count 322, MPV 8.8, Gran % 65.6, Lymph % (Auto) 23.4, Faulk % (Auto) 7.3 H, Eos % (Auto) 3.5, Baso % (Auto) 0.2, Gran # 8.22 H, Lymph # (Auto) 2.9, Faulk # (Auto) 0.9 H, Eos # (Auto) 0.4, Baso # (Auto) 0.03 11/06/17 20:34: Sodium 136, Potassium 4.2, Chloride 101, Carbon Dioxide 21, Anion Gap 18, BUN 34 H, Creatinine 2.6 H, Est GFR ( Amer) 32, Est GFR ( Non-Af Amer) 26, Random Glucose 197 H, Calcium 8.4, Total Bilirubin 0.3, AST 24 , ALT 20, Alkaline Phosphatase 67, Total Protein 6.7, Albumin 3.6, Globulin 3.1 , Albumin/Globulin Ratio 1.2 - RAD Interpretation Radiology Orders: 11/06/17 19:50 FOOT LEFT 3 VIEWS ROUTINE [RAD] Stat 11/06/17 20:31 DUPLEX LOWER EXTRM VEIN LEFT [US] Stat - Medication Orders Current Medication Orders: Acetaminophen (Tylenol 325mg Tab) 650 mg PO Q6H PRN PRN Reason: Fever >100.4 F Atorvastatin Calcium (Lipitor) 20 mg PO DAILY MELVIN Benztropine Mesylate (Cogentin) 0.5 mg PO BID MELVIN Hydralazine HCl (Apresoline) 25 mg PO Q8 MELVIN Hydroxyzine HCl (Atarax) 25 mg PO HS MELVIN Vancomycin HCl (Vancomycin 1gm) 1 gm in 250 mls @ 167 mls/hr IVPB DAILY MELVIN PRN Reason: Protocol Piperacillin Sod/Tazobactam Sod (Zosyn 2.25 Gm In 0.9% 100 Ml) 2.25 gm in 100 mls @ 100 mls/hr IVPB Q6 MELVIN PRN Reason: Protocol Stop: 11/07/17 06:59 Last Admin: 11/07/17 00:16 Dose: 100 mls/hr eMAR Start Stop Document 11/07/17 00:16 [email or web address] (Rec: 11/07/17 00:17 OLIVD [facility] [id number]) Intravenous Solution Start Date 11/07/17 Start Time 00:17 End Date 11/07/17 End time 00:47 Total Infusion Time 30 Sodium Chloride (Sodium Chloride 0.9%) 1,000 mls @ 100 mls/hr IV .Q10H [facility] Last Admin: 11/07/17 00:17 Dose: 100 mls/hr eMAR Start Stop Document 11/07/17 00:17 OLIVD (Rec: 11/07/17 00:18 OLIVD [facility] [id number]) Intravenous Solution Start Date 11/07/17 Start Time 00:18 Insulin Human Lispro (Humalog Med) 0 units SC ACHS MELVIN PRN Reason: Protocol Metoprolol Tartrate (Lopressor) 25 mg PO BID [facility] Ondansetron HCl (Zofran Tab) 4 mg PO Q8H PRN PRN Reason: Nausea/Vomiting Risperidone (Risperdal Tab) 0.5 mg PO HS [facility] PRN Reason: Protocol Last Admin: 11/07/17 00:18 Dose: 0.5 mg Behavioural Document 11/07/17 00:18 OLIVD (Rec: 11/07/17 00:18 OLIVD [facility] [id number]) Maintenance Maintenance Dose Yes Discontinued Medications Acetaminophen (Tylenol 325mg Tab) 650 mg PO STAT STA Stop: 11/06/17 22:19 Last Admin: 11/06/17 22:29 Dose: 650 mg MAR Pain/Vitals Document 11/06/17 22:29 AD (Rec: 11/06/17 22:30 AD [id number]) Pain Reassessment Is This A Pain ReAssessment? No Presence of Pain Presence of Pain Yes Pain Scale Used Pain Scale Used Numeric Location Pain Location Body Potato Pancake Frier Intensity 5 Scale Used Numeric Hydralazine HCl (Apresoline) 25 mg PO ONCE ONE Stop: 11/07/17 00:31 Last Admin: 11/07/17 00:27 Dose: 25 mg MAR Pulse and Blood Pressure Document 11/07/17 00:27 OLIVD (Rec: 11/07/17 00:28 OLIVD [id number]) Pulse Pulse Rate (60-90 beats/min) 107 Blood Pressure Blood Pressure (100/60-150/90 mm Hg) 167/97 Hydroxyzine HCl (Atarax) 25 mg PO ONCE ONE Stop: 11/06/17 23:40 Last Admin: 11/07/17 00:18 Dose: 25 mg Vancomycin HCl (Vancomycin 1gm) 1 gm in 250 mls @ 167 mls/hr IVPB STAT STA PRN Reason: Protocol Stop: 11/06/17 21:18 Last Admin: 11/06/17 21:48 Dose: 167 mls/hr eMAR Start Stop Document 11/06/17 21:48 AD (Rec: 11/06/17 21:48 AD [id number]) Intravenous Solution Start Date 11/06/17 Start Time 21:48 Piperacillin Sod/Tazobactam Sod (Zosyn 3.375 In Ns 100ml) 100 mls @ 200 mls/hr IVPB STAT STA PRN Reason: Protocol Stop: 11/06/17 20:18 Last Admin: 11/06/17 20:15 Dose: 200 mls/hr eMAR Start Stop Document 11/06/17 20:15 EQ (Rec: 11/06/17 20:15 EQ [id number]) Intravenous Solution Start Date 11/06/17 Start Time 20:15 Disposition/Present on Arrival - Present on Arrival Any Indicators Present on Arrival: Yes History of DVT/PE: No History of Uncontrolled Diabetes: Yes Urinary Catheter: No History of Decub. Ulcer: No History Surgical Site Infection Following: None - Disposition Have Diagnosis and Disposition been Completed?: Yes Diagnosis: Cellulitis, Renal insufficiency, Foot ulcer Disposition: HOSPITALIZED Disposition Time: 20:43 Patient Plan: Admission Patient Problems: Current Active Problems Problem Status Onset Cellulitis Acute Foot ulcer Acute Renal insufficiency Acute Condition: FAIR
[2017-11-06 20:43] LABS: BASO # 0.03 K/mm3 (0.0-2.0); BASO % 0.2 % (0.0-3.0); EOS # 0.4 (0.0-0.7); EOS % 3.5 % (1.5-5.0); GRAN # 8.22 (1.4-6.5); GRAN % 65.6 % (50.0-68.0); HEMOGLOBIN 10.8 g/dL (14.0-18.0); LYMPH # 2.9 (1.2-3.4); LYMPH % 23.4 % (22.0-35.0); MEAN CELL VOLUME 83.7 fl (80.0-105.0); MEAN CORPUSCULAR HEMOGLOBIN 28.9 pg (25.0-35.0); MEAN CORPUSCULAR HGB CONC 34.5 g/dl (31.0-37.0); MEAN PLATELET VOLUME 8.8 fl (7.0-11.0); MONO # 0.9 (0.1-0.6); MONO % 7.3 % (1.0-6.0); RBC 3.74 10^6/uL (3.5-6.1); RED CELL DISTRIBUTION WIDTH 11.8 % (11.5-14.5); WHITE BLOOD COUNT 12.5 10^3/ul (4.5-11.0)
[2017-11-06 20:49] LABS: ALB/GLOB RATIO 1.2 (1.1-1.8); ALBUMIN 3.6 g/dL (3.0-4.8); CALCIUM 8.4 mg/dL (8.4-10.5)
[2017-11-06] MEDS ORDERED: Propofol 10 mg/ml 1,000 MG/100 ML VIAL IV PRN (22:16)
--- NOTE | 2017-11-06 22:25 | CP.PCM.HP ---
<Yovanny Groves - Last Filed: 11/06/17 23:11> History of Present Illness - History of Present Illness History of Present Illness: CC: L foot pain and wound Mr. Herman is a 51 year old male with PMH of HTN, HLD, DM2, GERD, b/l knee osteoarthritis who presents for worsening L foot pain and swelling. He was admitted for a similar infection in 08/21. His foot became painful and swollen this morning. He describes the foot pain as a burning type pain and 5/10 in severity. It does not radiate. He states that he follows up with a primary care physician for diabetes treatment. He reports feeling some chills this morning and endorses a headache but denies fever, chest pain or palpitations, SOB, vision changes, nausea, vomiting, or abdominal pain. PMHx: DM2, HTN, HLD, GERD, PSHx: Denied Family Hx: Mother: DC; Father: DM2, HTN Social Hx: Patient denies tobacco use, admits to occassional alcohol use, denies illicit drugs. Currently lives with his sister and is unemployed. He's part of an outpatient treatment program for a psychotic disorder. Allergies: NKDA Present on Admission - Present on Admission Any Indicators Present on Admission: No History of DVT/PE: No History of Uncontrolled Diabetes: Yes Urinary Catheter: No Decubitus Ulcer Present: No Review of Systems - Review of Systems Review of Systems: A 12 point ROS was performed and was negative except as stated in the HPI. Past Patient History - Infectious Disease Hx of Infectious Diseases: None - Tetanus Immunizations Tetanus Immunization: Unknown - Past Social History Smoking Status: Former Smoker - CARDIAC Hx Pacemaker: No - PULMONARY Other/Comment: x smoker - Last smoked 8 years ago - NEUROLOGICAL Hx Paralysis: No - HEENT Hx Cataracts: Yes - RENAL Hx Renal Failure: No - ENDOCRINE/METABOLIC Hx Diabetes Mellitus Type 2: Yes - HEMATOLOGICAL/ONCOLOGICAL Hx Blood Transfusions: No - INTEGUMENTARY Hx Dermatological Problems: No - MUSCULOSKELETAL/RHEUMATOLOGICAL Hx Musculoskeletal Disorders: No - GASTROINTESTINAL Hx Gastroesophageal Reflux: No - GENITOURINARY/GYNECOLOGICAL Hx Genitourinary Disorders: No - PSYCHIATRIC Hx Depression: No Hx Emotional Abuse: No Hx Physical Abuse: No Hx Substance Use: No - SURGICAL HISTORY Hx Surgeries: No - ANESTHESIA Hx Anesthesia Reactions: No Hx Malignant Hyperthermia: No Meds Allergies/Adverse Reactions: Allergies Allergy/AdvReac Type Severity Reaction Status Date / Time No Known Allergies Allergy Verified 05/24/16 18:59 Physical Exam - Constitutional Appears: No Acute Distress Additional comments: Pleasant, a/o x 3 - Head Exam Head Exam: ATRAUMATIC, NORMAL INSPECTION, NORMOCEPHALIC - Eye Exam Eye Exam: Normal appearance, PERRL - ENT Exam ENT Exam: Mucous Membranes Moist - Neck Exam Neck exam: Positive for: Normal Inspection - Respiratory Exam Respiratory Exam: Clear to Auscultation Bilateral, NORMAL BREATHING PATTERN. absent: Accessory Muscle Use, Chest Wall Tenderness, Prolonged Expiratory Phase , Rhonchi, Wheezes, Respiratory Distress, Stridor - Cardiovascular Exam Cardiovascular Exam: REGULAR RHYTHM, RRR, +S1, +S2. absent: Diastolic murmur, Gallop, JVD, Rubs, Systolic Murmur - GI/Abdominal Exam GI & Abdominal Exam: Normal Bowel Sounds, Soft. absent: Guarding, Organomegaly , Rebound, Tenderness - Extremities Exam Additional comments: 2.5 cm non-purulent ulceration on base of left foot with surrounding erythema consistent with diabetic foot ulcer and surrounding cellulitis - Back Exam Back exam: NORMAL INSPECTION - Neurological Exam Neurological exam: Alert, Oriented x3 - Psychiatric Exam Psychiatric exam: Normal Affect, Normal Mood - Skin Additional comments: warm, dry, and intact except left foot as noted above Results - Vital Signs Recent Vital Signs: Last Vital Signs Temp 98.8 F 11/06/17 19:26 Pulse 89 11/06/17 19:26 Resp 18 11/06/17 19:26 BP 159/90 H 11/06/17 19:26 Pulse Ox 98 11/06/17 19:26 - Labs Result Diagrams: 11/06/17 20:34 11/06/17 20:34 Assessment & Plan - Assessment and Plan (Free Text) Assessment: Mr. Herman is a 51 year old male with PMH of HTN, HLD, DM2, GERD, b/l knee osteoarthritis with left foot cellulitis. 1. Left foot cellulitis -S/p 1 dose of vanc and zosyn in ED -Will continue vanc and zosyn renally dosed -Blood and wound cultures sent -elevate L foot -Incision and drainage not warranted at this time -Daily CBC, continue to monitor WBC 2. JAILENE -Likely secondary to infection and dehydration -Given hx of diabetes, CKD is a possibility -UA, Urine electrolytes, Urine Cr, urine osmolality pending -If JAILENE worsens, consider nephrology consultation -NS @ 100cc/hr 3. Normocytic anemia -Likely secondary to anemia of chronic disease -May also be due to iron deficiency or CKD -Iron, TIBC, transferrin, ferritin ordered 4. Hx of CHF -Cardiac cath performed 09/20 showed EF of 35-40% -Patient currently euvolemic without sx's of CHF exacerbation -Continue Lopressor and lipitor -Will monitor IV fluids closely 5. Hx of HTN -150s/90s on admission -Continue lopressor -Consider IV hydralazine if needed Patient discussed with Dr. Marilee Ureña attending. Yovanny Groves DO Internal Medicine Resident PGY-1 <Rubin Ureña - Last Filed: 11/08/17 01:03> Results - Vital Signs Recent Vital Signs: Last Vital Signs Temp 98.1 F 11/07/17 17:43 Pulse 87 11/07/17 22:00 Resp 20 11/07/17 17:43 BP 137/77 11/07/17 22:00 Pulse Ox 94 L 11/07/17 17:43 - Labs Result Diagrams: 11/07/17 06:00 11/07/17 06:00 Labs: Laboratory Results - last 24 hr 11/07/17 11/07/17 11/07/17 01:27 06:00 06:00 WBC RBC Hgb Hct MCV MCH MCHC RDW Plt Count MPV Gran % Lymph % (Auto) [place] % (Auto) Eos % (Auto) Baso % (Auto) Gran # Lymph # (Auto) [place] # (Auto) Eos # (Auto) Baso # (Auto) ESR Sodium Potassium Chloride Carbon Dioxide Anion Gap BUN Creatinine Est GFR ( Amer) Est GFR (Non-Af Amer) POC Glucose (mg/dL) 193 H Random Glucose Hemoglobin A1c 8.0 H Calcium Iron TIBC % Saturation Transferrin 173.26 L Ferritin Total Bilirubin AST ALT Alkaline Phosphatase C-React Prot High Sens Total Protein Albumin Globulin Albumin/Globulin Ratio Urine Color Urine Appearance Urine pH Ur Specific [place] Urine Protein Urine Glucose (UA) Urine Ketones Urine Blood Urine Nitrate Urine Bilirubin Urine Urobilinogen Ur Leukocyte Esterase Urine RBC Urine WBC Ur Epithelial Cells Hyaline Casts Ur Random Creatinine 07/04/18 07/04/18 07/04/18 06:00 06:00 06:00 WBC 13.9 H RBC 4.23 Hgb 12.1 L Hct 35.0 L MCV 82.7 MCH 28.6 MCHC 34.6 RDW 11.8 Plt Count 363 MPV 8.9 Gran % 69.5 H Lymph % (Auto) 18.1 L [place] % (Auto) 9.7 H Eos % (Auto) 2.5 Baso % (Auto) 0.2 Gran # 9.63 H Lymph # (Auto) 2.5 [place] # (Auto) 1.4 H Eos # (Auto) 0.3 Baso # (Auto) 0.03 ESR Sodium 140 Potassium 4.0 Chloride 103 Carbon Dioxide 24 Anion Gap 17 BUN 26 H Creatinine 2.0 H Est GFR ( Amer) 43 Est GFR (Non-Af Amer) 36 POC Glucose (mg/dL) Random Glucose 194 H Hemoglobin A1c Calcium 8.8 Iron 24 L TIBC 252 L % Saturation 10 L Transferrin Ferritin 194.0 Total Bilirubin 0.4 AST 21 ALT 17 Alkaline Phosphatase 80 C-React Prot High Sens Total Protein 7.2 Albumin 3.8 Globulin 3.5 Albumin/Globulin Ratio 1.1 Urine Color Urine Appearance Urine pH Ur Specific [place] Urine Protein Urine Glucose (UA) Urine Ketones Urine Blood Urine Nitrate Urine Bilirubin Urine Urobilinogen Ur Leukocyte Esterase Urine RBC Urine WBC Ur Epithelial Cells Hyaline Casts Ur Random Creatinine 11/07/17 11/07/17 11/07/17 06:00 06:00 07:23 WBC RBC Hgb Hct MCV MCH MCHC RDW Plt Count MPV Gran % Lymph % (Auto) [place] % (Auto) Eos % (Auto) Baso % (Auto) Gran # Lymph # (Auto) [place] # (Auto) Eos # (Auto) Baso # (Auto) ESR 100 H Sodium Potassium Chloride Carbon Dioxide Anion Gap BUN Creatinine Est GFR ( Amer) Est GFR (Non-Af Amer) POC Glucose (mg/dL) 174 H Random Glucose Hemoglobin A1c Calcium Iron TIBC % Saturation Transferrin Ferritin Total Bilirubin AST ALT Alkaline Phosphatase C-React Prot High Sens > 15.00 H Total Protein Albumin Globulin Albumin/Globulin Ratio Urine Color Urine Appearance Urine pH Ur Specific [place] Urine Protein Urine Glucose (UA) Urine Ketones Urine Blood Urine Nitrate Urine Bilirubin Urine Urobilinogen Ur Leukocyte Esterase Urine RBC Urine WBC Ur Epithelial Cells Hyaline Casts Ur Random Creatinine 11/07/17 11/07/17 11/07/17 11:36 15:40 17:30 WBC RBC Hgb Hct MCV MCH MCHC RDW Plt Count MPV Gran % Lymph % (Auto) [place] % (Auto) Eos % (Auto) Baso % (Auto) Gran # Lymph # (Auto) [place] # (Auto) Eos # (Auto) Baso # (Auto) ESR Sodium Potassium Chloride Carbon Dioxide Anion Gap BUN Creatinine Est GFR ( Amer) Est GFR (Non-Af Amer) POC Glucose (mg/dL) 179 H 132 H Random Glucose Hemoglobin A1c Calcium Iron TIBC % Saturation Transferrin Ferritin Total Bilirubin AST ALT Alkaline Phosphatase C-React Prot High Sens Total Protein Albumin Globulin Albumin/Globulin Ratio Urine Color Urine Appearance Urine pH Ur Specific [place] Urine Protein Urine Glucose (UA) Urine Ketones Urine Blood Urine Nitrate Urine Bilirubin Urine Urobilinogen Ur Leukocyte Esterase Urine RBC Urine WBC Ur Epithelial Cells Hyaline Casts Ur Random Creatinine 56 11/07/17 11/07/17 17:30 21:31 WBC RBC Hgb Hct MCV MCH MCHC RDW Plt Count MPV Gran % Lymph % (Auto) [place] % (Auto) Eos % (Auto) Baso % (Auto) Gran # Lymph # (Auto) [place] # (Auto) Eos # (Auto) Baso # (Auto) ESR Sodium Potassium Chloride Carbon Dioxide Anion Gap BUN Creatinine Est GFR ( Amer) Est GFR (Non-Af Amer) POC Glucose (mg/dL) 256 H Random Glucose Hemoglobin A1c Calcium Iron TIBC % Saturation Transferrin Ferritin Total Bilirubin AST ALT Alkaline Phosphatase C-React Prot High Sens Total Protein Albumin Globulin Albumin/Globulin Ratio Urine Color Yellow Urine Appearance Clear Urine pH 6.5 Ur Specific [place] 1.015 Urine Protein 100 H Urine Glucose (UA) 100 H Urine Ketones Negative Urine Blood Trace-intact H Urine Nitrate Negative Urine Bilirubin Negative Urine Urobilinogen 0.2 Ur Leukocyte Esterase Negative Urine RBC 1 - 3 Urine WBC 0 - 2 Ur Epithelial Cells 1 - 3 Hyaline Casts 0 - 2 Ur Random Creatinine
[2017-11-06] MEDS ORDERED: Dextrose 5%/0.9% NS 1,000 ML IV SCH (22:30)
[2017-11-07] MEDS: Piperacillin/Tazobact 2.25gm 2.25 GM/100 ML BAG IVPB SCH ×2 (00:16→05:48)
[2017-11-07] MEDS: Sodium Chloride 0.9% 1,000 ML IV SCH ×2 (00:17→09:50)
[2017-11-07 01:01] VITALS: BMI 30.7
[2017-11-07] MEDS: Pantoprazole 40 mg EC Tab PO SCH (05:50)
[2017-11-07 06:47] LABS: BASO # 0.03 K/mm3 (0.0-2.0); BASO % 0.2 % (0.0-3.0); EOS # 0.3 (0.0-0.7); EOS % 2.5 % (1.5-5.0); GRAN # 9.63 (1.4-6.5); GRAN % 69.5 % (50.0-68.0); HEMOGLOBIN 12.1 g/dL (14.0-18.0); LYMPH # 2.5 (1.2-3.4); LYMPH % 18.1 % (22.0-35.0); MEAN CELL VOLUME 82.7 fl (80.0-105.0); MEAN CORPUSCULAR HEMOGLOBIN 28.6 pg (25.0-35.0); MEAN CORPUSCULAR HGB CONC 34.6 g/dl (31.0-37.0); MEAN PLATELET VOLUME 8.9 fl (7.0-11.0); MONO # 1.4 (0.1-0.6); MONO % 9.7 % (1.0-6.0); RBC 4.23 10^6/uL (3.5-6.1); RED CELL DISTRIBUTION WIDTH 11.8 % (11.5-14.5); WHITE BLOOD COUNT 13.9 10^3/ul (4.5-11.0)
[2017-11-07 07:11] LABS: ALB/GLOB RATIO 1.1 (1.1-1.8); ALBUMIN 3.8 g/dL (3.0-4.8); CALCIUM 8.8 mg/dL (8.4-10.5)
[2017-11-07 07:18] LABS: IRON 24 ug/dL (45-180)
--- NOTE | 2017-11-07 07:19 | CP.PCM.PN ---
<Mahesh Livingston - Last Filed: 11/07/17 16:29> Subjective - Date & Time of Evaluation Date of Evaluation: 11/07/17 Time of Evaluation: 10:00 - Subjective Subjective: Patient seen and examined at bedside. No acute events overnight. Patient states left foot pain has improved relative to baseline. States he experienced 2 bouts of nonbloody nonbilious emesis overnight. Denies fever, chills, chest pain, SOB. Objective - Vital Signs/Intake and Output Vital Signs (last 24 hours): Temp Pulse Resp BP Pulse Ox 99.8 F H 101 H 19 143/58 L 100 11/07/17 00:43 11/07/17 05:50 11/07/17 00:43 11/07/17 05:50 11/06/17 23:00 Intake and Output: 11/07/17 11/07/17 06:59 18:59 Intake Total 0 Output Total 0 Balance 0 - Medications Medications: Current Medications Acetaminophen (Tylenol 325mg Tab) 650 mg PO Q6H PRN PRN Reason: Fever >100.4 F Atorvastatin Calcium (Lipitor) 20 mg PO DAILY [facility] Benztropine Mesylate (Cogentin) 0.5 mg PO BID [facility] Heparin Sodium (Porcine) (Heparin) 5,000 units SC Q12 [facility] PRN Reason: Protocol Hydralazine HCl (Apresoline) 25 mg PO Q8 [facility] Last Admin: 11/07/17 05:50 Dose: 25 mg Hydroxyzine HCl (Atarax) 25 mg PO HS [facility] Vancomycin HCl (Vancomycin 1gm) 1 gm in 250 mls @ 167 mls/hr IVPB DAILY [facility] PRN Reason: Protocol Sodium Chloride (Sodium Chloride 0.9%) 1,000 mls @ 100 mls/hr IV .Q10H [facility] Last Admin: 11/07/17 00:17 Dose: 100 mls/hr Insulin Human Lispro (Humalog Med) 0 units SC ACHS [facility] PRN Reason: Protocol Metoprolol Tartrate (Lopressor) 25 mg PO BID [facility] Ondansetron HCl (Zofran Inj) 4 mg IVP Q4H PRN PRN Reason: Nausea/Vomiting Last Admin: 11/07/17 01:41 Dose: 4 mg Pantoprazole Sodium (Protonix Ec Tab) 40 mg PO 0600 [facility] Last Admin: 11/07/17 05:50 Dose: 40 mg Risperidone (Risperdal Tab) 0.5 mg PO HS [facility] PRN Reason: Protocol Last Admin: 11/07/17 00:18 Dose: 0.5 mg - Labs Labs: 11/07/17 06:00 11/07/17 06:00 - Constitutional Appears: No Acute Distress - Head Exam Head Exam: ATRAUMATIC, NORMAL INSPECTION - Eye Exam Eye Exam: Normal appearance - ENT Exam ENT Exam: Mucous Membranes Moist - Respiratory Exam Respiratory Exam: Clear to Ausculation Bilateral, NORMAL BREATHING PATTERN - Cardiovascular Exam Cardiovascular Exam: +S1, +S2 - GI/Abdominal Exam GI & Abdominal Exam: Soft. absent: Tenderness - Extremities Exam Additional comments: Left lower extremity: Erythema and edema noted on dorsal aspect of forefoot. Dopplerable anterior tibalis pusle. - Psychiatric Exam Psychiatric exam: Flat Affect - Skin Skin Exam: Dry, Intact, Warm Assessment and Plan - Assessment and Plan (Free Text) Assessment: Assessment and Plan: Mr. Herman is a 51 year old male with PMHx of HTN, HLD, DM2, GERD, bilateral knee osteoarthritis who was admitted for evaluation and treatment of left foot pain and swelling. Left foot cellulitis - continue tefalro as per ID - gram stain revealed gram positive cocci in chains - elevate L foot - MRI pending as per podo Nausea/Vomiting - continue zofran JAILENE - Likely secondary to infection and dehydration - BUn and creatinine reviewed, trended- improving - normal saline changed to half normal NS @ 75cc/hr in regard to elevated blood pressure Normocytic anemia - hemoglobin reviewed and trended- improved to 12.1 from 10.8 - continue to monitor closely via daily CBC Hx of CHF -Cardiac cath performed 09/20 showed EF of 35-40% -Patient currently euvolemic without sx's of CHF exacerbation -Continue Lopressor and lipitor -Will monitor IV fluids closely Hx of HTN -Continue lopressor -continue hydralazine Patient case reviewed with and plan approved by attending physician, Dr. Kim. <Fara Kim R - Last Filed: 11/07/17 17:23> Objective - Vital Signs/Intake and Output Vital Signs (last 24 hours): Temp Pulse Resp BP Pulse Ox 98.1 F 81 19 145/95 H 96 11/07/17 06:00 11/07/17 13:08 11/07/17 06:00 11/07/17 13:08 11/07/17 06:00 Intake and Output: 11/07/17 11/07/17 06:59 18:59 Intake Total 0 980 Output Total 0 1150 Balance 0 -170 - Medications Medications: Current Medications Acetaminophen (Tylenol 325mg Tab) 650 mg PO Q6H PRN PRN Reason: Fever >100.4 F Atorvastatin Calcium (Lipitor) 20 mg PO DAILY [facility] Last Admin: 11/07/17 09:49 Dose: 20 mg Benztropine Mesylate (Cogentin) 0.5 mg PO BID [facility] Last Admin: 11/07/17 09:49 Dose: 0.5 mg Heparin Sodium (Porcine) (Heparin) 5,000 units SC Q12 [facility] PRN Reason: Protocol Last Admin: 11/07/17 09:49 Dose: 5,000 units Hydralazine HCl (Apresoline) 25 mg PO Q8 [facility] Last Admin: 11/07/17 13:08 Dose: 25 mg Hydroxyzine HCl (Atarax) 25 mg PO HS [facility] Ceftaroline Fosamil 400 mg/ (Sodium Chloride) 100 mls @ 100 mls/hr IVPB Q12 [facility] PRN Reason: Protocol Stop: 11/16/17 13:31 Last Admin: 11/07/17 14:28 Dose: 100 mls/hr Sodium Chloride (Sodium Chloride 0.45%) 1,000 mls @ 75 mls/hr IV .[id number] [facility] Insulin Human Lispro (Humalog Med) 0 units SC ACHS [facility] PRN Reason: Protocol Last Admin: 11/07/17 12:50 Dose: 1 units Metoprolol Tartrate (Lopressor) 25 mg PO BID [facility] Last Admin: 11/07/17 09:48 Dose: 25 mg Multivitamins (Thera Tab) 1 tab PO 0800 [facility] Ondansetron HCl (Zofran Inj) 4 mg IVP Q4H PRN PRN Reason: Nausea/Vomiting Last Admin: 11/07/17 01:41 Dose: 4 mg Pantoprazole Sodium (Protonix Ec Tab) 40 mg PO 0600 [facility] Last Admin: 11/07/17 05:50 Dose: 40 mg Risperidone (Risperdal Tab) 0.5 mg PO HS [facility] PRN Reason: Protocol Last Admin: 11/07/17 00:18 Dose: 0.5 mg Zinc Sulfate (Zinc Sulfate 220 Mg Cap) 220 mg PO DAILY [facility] Last Admin: 11/07/17 09:48 Dose: 220 mg - Labs Labs: 11/07/17 06:00 11/07/17 06:00 Attending/Attestation - Attestation I have personally seen and examined this patient.: Yes I have fully participated in the care of the patient.: Yes I have reviewed all pertinent clinical information, including history, physical exam and plan: Yes Notes (Text): Patient seen and examined by me at 11:15 AM with resident. Case including physical assessment and plan discussed with resident. Agree with above with following additions and changes. Patient states he is feeling okay. He states he has a little bit of pain in his left foot. He denies any drainage from the area at home. He states he noticed the wound and erythema for the past couple of days. He states that he follows a cigarette tipper as an outpatient. He denies any chest pain or shortness of breath. No nausea or vomiting. No abdominal pain. No headaches or dizziness. No fevers or chills. No dysuria. No diarrhea or constipation. Physical exam: Gen: Patient is awake and alert lying in bed in no acute distress HEENT: Normocephalic atraumatic, extraocular muscles intact, pupils equal reactive, oropharynx is pink and moist, no pharyngeal erythema or exudate appreciated, neck is supple. Cardiovascular: Normal rhythm, normal S1-S2, no murmurs rubs or gallops appreciated Pulmonary: Normal respiratory effort. No rhonchi, rales, or wheezing appreciated Gastrointestinal: Soft, nontender, nondistended, positive bowel sounds all 4 quadrants, no guarding Musculoskeletal: Moves all extremities, no calf tenderness. Left dorsal foot with improving erythema. Positive warmth left foot. Positive hyperkeratotic skin with likely underlying wound below left great toe dorsal foot. No drainage noted. The foul smell. Vascular: Decreased pulses left foot, pulses appreciated with Doppler Central nervous system: AAO 3 Dermatologic: Skin warm and dry Assessment and plan: Patient is a 51-year-old male who presented with left foot cellulitis and left dorsal foot wound. Patient was initially placed on Vanco and Zosyn. ID consulted, recommendations appreciated. Antibiotics changed to Teflaro. Podiatry consulted, recommendations appreciated. Pulses on left foot appreciated with Doppler. Pending final wound cultures. MRI pending. X-ray did not show osteomyelitis or any fracture. Acute kidney injury is likely secondary to dehydration and infection. BUN/creatinine are improving. Continue with IV fluids. Anemia is chronic. Hemoglobin up trending. Chronic systolic CHF. Patient is currently not in exacerbation. We'll monitor closely as patient is on IV fluids. Continue risperidone, Atarax, and Cogentin for history of psychotic disorder. Continue insulin sliding scale and diabetic diet for history of diabetes. Continue hydralazine and metoprolol for hypertension. Follow-up cultures. Case was discussed in detail with the patient regarding current diagnosis and treatment plan
[2017-11-07 07:27] LABS: % IRON SATURATION 10 % (20-55); TOTAL IRON BINDING CAPACITY 252 ug/dL (261-462)
--- NOTE | 2017-11-07 09:34 | RAD ---
PROCEDURE: Left Foot Radiographs. HISTORY: foot wound/infection COMPARISON: None. FINDINGS: BONES: Small plantar calcaneal spur. No acute findings. JOINTS: Minor hallux valgus deformity. SOFT TISSUES: Dorsal soft tissue swelling. OTHER FINDINGS: None. IMPRESSION: Soft tissue swelling without acute articular or osseous abnormality.
[2017-11-07] MEDS: Insulin Lispro (humaLOG) MEDIUM Coverage SC SCH ×4 (09:49→21:55)
[2017-11-07] MEDS ORDERED: Vancomycin 1gm in NS 250ml 1 GM/250 ML BAG IVPB SCH (10:00)
[2017-11-07] MEDS ORDERED: Piperacillin/Tazobact 3.375 gm 100 ML IVPB SCH (12:00)
--- NOTE | 2017-11-07 12:02 | CP.PCM.CON ---
History of Present Illness - History of Present Illness History of Present Illness: Podiatry consult note for Dr. Alfaro, 51 YO male with past medical history of htn, hld, DM was admitted after being seen in the ED yesterday (11/06) for swelling and pain to the left foot. Patient is seen resting comfortably. Patient is in no acute distress and is AAox3. He states he has noticed redness and swelling in the left foot after taking off his sock yesterday morning 11/06. Patient denies any pain to the area. Patient denies seeing a foot and ankle doctor regularly however states that he follows up with a primary care physician for diabetes treatment. Patient admits to f/ chills/n. Patient denies chest pain/vomiting. PSHx: none Family Hx: Mother: CT; Father: DM2, HTN Social Hx: Patient denies tobacco use, admits to occassional alcohol use, denies illicit drugs. Currently lives with his sister and is unemployed. He's part of an outpatient treatment program for a psychotic disorder. Allergies: NKDA Past Patient History - Infectious Disease Hx of Infectious Diseases: None - Tetanus Immunizations Tetanus Immunization: Unknown - Past Social History Smoking Status: Former Smoker - CARDIAC Hx Pacemaker: No - PULMONARY Other/Comment: x smoker - Last smoked 8 years ago - NEUROLOGICAL Hx Paralysis: No - HEENT Hx Cataracts: Yes - RENAL Hx Renal Failure: No - ENDOCRINE/METABOLIC Hx Diabetes Mellitus Type 2: Yes - HEMATOLOGICAL/ONCOLOGICAL Hx Blood Transfusions: No - INTEGUMENTARY Hx Dermatological Problems: No - MUSCULOSKELETAL/RHEUMATOLOGICAL Hx Musculoskeletal Disorders: No - GASTROINTESTINAL Hx Gastroesophageal Reflux: No - GENITOURINARY/GYNECOLOGICAL Hx Genitourinary Disorders: No - PSYCHIATRIC Hx Depression: No Hx Emotional Abuse: No Hx Physical Abuse: No Hx Substance Use: No - SURGICAL HISTORY Hx Coronary Stent: Yes - ANESTHESIA Hx Anesthesia Reactions: No Hx Malignant Hyperthermia: No Meds Allergies/Adverse Reactions: Allergies Allergy/AdvReac Type Severity Reaction Status Date / Time No Known Allergies Allergy Verified 05/24/16 18:59 - Medications Medications: Current Medications Acetaminophen (Tylenol 325mg Tab) 650 mg PO Q6H PRN PRN Reason: Fever >100.4 F Atorvastatin Calcium (Lipitor) 20 mg PO DAILY [facility] Last Admin: 11/07/17 09:49 Dose: 20 mg Benztropine Mesylate (Cogentin) 0.5 mg PO BID [facility] Last Admin: 11/07/17 09:49 Dose: 0.5 mg Heparin Sodium (Porcine) (Heparin) 5,000 units SC Q12 [facility] PRN Reason: Protocol Last Admin: 11/07/17 09:49 Dose: 5,000 units Hydralazine HCl (Apresoline) 25 mg PO Q8 [facility] Last Admin: 11/07/17 05:50 Dose: 25 mg Hydroxyzine HCl (Atarax) 25 mg PO HS [facility] Vancomycin HCl (Vancomycin 1gm) 1 gm in 250 mls @ 167 mls/hr IVPB DAILY [facility] PRN Reason: Protocol Last Admin: 11/07/17 09:48 Dose: 167 mls/hr Sodium Chloride (Sodium Chloride 0.9%) 1,000 mls @ 100 mls/hr IV .Q10H [facility] Last Admin: 11/07/17 09:50 Dose: 100 mls/hr Piperacillin Sod/Tazobactam Sod (Zosyn 3.375 In Ns 100ml) 100 mls @ 200 mls/hr IVPB Q6 [facility] PRN Reason: Protocol Stop: 11/07/17 18:29 Insulin Human Lispro (Humalog Med) 0 units SC ACHS [facility] PRN Reason: Protocol Last Admin: 11/07/17 09:49 Dose: 1 units Metoprolol Tartrate (Lopressor) 25 mg PO BID [facility] Last Admin: 11/07/17 09:48 Dose: 25 mg Multivitamins (Thera Tab) 1 tab PO 0800 [facility] Ondansetron HCl (Zofran Inj) 4 mg IVP Q4H PRN PRN Reason: Nausea/Vomiting Last Admin: 11/07/17 01:41 Dose: 4 mg Pantoprazole Sodium (Protonix Ec Tab) 40 mg PO 0600 [facility] Last Admin: 11/07/17 05:50 Dose: 40 mg Risperidone (Risperdal Tab) 0.5 mg PO HS [facility] PRN Reason: Protocol Last Admin: 11/07/17 00:18 Dose: 0.5 mg Zinc Sulfate (Zinc Sulfate 220 Mg Cap) 220 mg PO DAILY [facility] Last Admin: 11/07/17 09:48 Dose: 220 mg Physical Exam - Constitutional Appears: Well, Non-toxic, No Acute Distress - Head Exam Head Exam: ATRAUMATIC, NORMOCEPHALIC - Extremities Exam Extremities exam: Negative for: calf tenderness Additional comments: Left lower extremity focused: Vascular: DP/PT pulses nonpalpable, CFT <3 secs x5, pedal hair noted, Temperature gradient warm to warm. Erythema and edema noted on dorsal aspect of forefoot. Derm: Hyperkeratotic skin noted on the underlying ulcer left sub met 1 with periwound fluctuance, erythema noted on the dorsal aspect of the forefoot extending medially to the ankle joint. Upon debridement of the hyperkeraotic skin left sub met 1: wound base is 100% fibrotic, pedrito wound erythema is noted, malodor noted, no probe to bone, no tracking or tunneling noted, measuring approximately 3.5 cm x 2.0 cm x .4 cm. No active drainage noted. Neuro: protective sensation grossly intact. Ortho: No pain on palpation to the wound, all ROM of the foot and ankle joint WNL. - Neurological Exam Neurological exam: Alert, Oriented x3 - Psychiatric Exam Psychiatric exam: Normal Mood - Skin Skin Exam: Erythema Results - Vital Signs Recent Vital Signs: Last Vital Signs Temp 98.1 F 11/07/17 06:00 Pulse 98 H 11/07/17 09:48 Resp 19 11/07/17 06:00 BP 142/80 11/07/17 09:48 Pulse Ox 96 11/07/17 06:00 - Labs Result Diagrams: 11/07/17 06:00 11/07/17 06:00 Labs: Laboratory Results - last 24 hr 11/07/17 11/07/17 11/07/17 01:27 06:00 06:00 WBC RBC Hgb Hct MCV MCH MCHC RDW Plt Count MPV Gran % Lymph % (Auto) [place] % (Auto) Eos % (Auto) Baso % (Auto) Gran # Lymph # (Auto) [place] # (Auto) Eos # (Auto) Baso # (Auto) ESR Sodium 140 Potassium 4.0 Chloride 103 Carbon Dioxide 24 Anion Gap 17 BUN 26 H Creatinine 2.0 H Est GFR ( Amer) 43 Est GFR (Non-Af Amer) 36 POC Glucose (mg/dL) 193 H Random Glucose 194 H Calcium 8.8 Iron TIBC % Saturation Transferrin 173.26 L Ferritin 194.0 Total Bilirubin 0.4 AST 21 ALT 17 Alkaline Phosphatase 80 C-React Prot High Sens Total Protein 7.2 Albumin 3.8 Globulin 3.5 Albumin/Globulin Ratio 1.1 11/07/17 11/07/17 11/07/17 06:00 06:00 06:00 WBC 13.9 H RBC 4.23 Hgb 12.1 L Hct 35.0 L MCV 82.7 MCH 28.6 MCHC 34.6 RDW 11.8 Plt Count 363 MPV 8.9 Gran % 69.5 H Lymph % (Auto) 18.1 L [place] % (Auto) 9.7 H Eos % (Auto) 2.5 Baso % (Auto) 0.2 Gran # 9.63 H Lymph # (Auto) 2.5 [place] # (Auto) 1.4 H Eos # (Auto) 0.3 Baso # (Auto) 0.03 ESR 100 H Sodium Potassium Chloride Carbon Dioxide Anion Gap BUN Creatinine Est GFR ( Amer) Est GFR (Non-Af Amer) POC Glucose (mg/dL) Random Glucose Calcium Iron 24 L TIBC 252 L % Saturation 10 L Transferrin Ferritin Total Bilirubin AST ALT Alkaline Phosphatase C-React Prot High Sens Total Protein Albumin Globulin Albumin/Globulin Ratio 11/07/17 11/07/17 11/07/17 06:00 07:23 11:36 WBC RBC Hgb Hct MCV MCH MCHC RDW Plt Count MPV Gran % Lymph % (Auto) [place] % (Auto) Eos % (Auto) Baso % (Auto) Gran # Lymph # (Auto) [place] # (Auto) Eos # (Auto) Baso # (Auto) ESR Sodium Potassium Chloride Carbon Dioxide Anion Gap BUN Creatinine Est GFR ( Amer) Est GFR (Non-Af Amer) POC Glucose (mg/dL) 174 H 179 H Random Glucose Calcium Iron TIBC % Saturation Transferrin Ferritin Total Bilirubin AST ALT Alkaline Phosphatase C-React Prot High Sens > 15.00 H Total Protein Albumin Globulin Albumin/Globulin Ratio Assessment & Plan - Assessment and Plan (Free Text) Assessment: 51 yo male: infected left sub metatarsal 1 ulcer with cellulitis Plan: Patient seen and evaluated History and plan discussed in detail with the attending, Dr. Alfaro Chart, labs and vitals reviewed; Febrile and WBC 13.9 Xray of the left foot reveals no osseous abnormality and no subcutaneous emphysema. MRI of the left foot ordered to rule out bone marrow edema Hyperkeratotic skin debrided using a sterile #15 blade. Wound Cultures taken and ordered after debridement 2 cc's of pus expressed upon debridement of the wound Foot dressed with saline soaked gauze, DSD Patient tolerated without any complications Continue IV abx- vanc/roby Podiatry will follow while in house Thank you for the consult.
[2017-11-07] MEDS ORDERED: Sodium Chloride 0.45% 1,000 ML IV SCH (13:30)
[2017-11-07 17:42] LABS: PH,URINE 6.5 (4.7-8.0); URINE BILIRUBIN NEGATIVE (NEGATIVE); URINE BLOOD TRACE-INTACT (NEGATIVE); URINE GLUCOSE (UA) 100 mg/dL (NEGATIVE); URINE LEUKOCYTE ESTERASE NEGATIVE Leu/uL (NEGATIVE); URINE PROTEIN 100 mg/dL (<30 mg/dL); URINE UROBILINOGEN 0.2 E.U./dL (<1 E.U./dL)
[2017-11-07 17:44] LABS: URINE APPEARANCE CLEAR (CLEAR); URINE COLOR YELLOW (YELLOW)
[2017-11-07] MEDS: Sodium Chloride 0.45% 1,000 ML IV SCH (17:54)
[2017-11-07 17:58] LABS: URINE HYALINE CAST 0 - 2 /hpf; URINE WBC 0 - 2 /hpf (0-6)
--- NOTE | 2017-11-07 21:40 | CON ---
DATE: 11/07/2017 LOCATION: The patient is in bed in room 370, bed 2. CHIEF COMPLAINT: Left foot infection times several days. HISTORY OF PRESENT ILLNESS: A 51-year-old male with history of obesity, BMI of 31 with history of diabetes mellitus, cataract, hyperlipidemia, hypertension, congestive heart failure with ejection fraction of 35-40%, who is admitted with a left foot infection and Infectious Disease consultation requested. The patient's review of systems reveals the patient has low-grade fevers. No chest pain, shortness of breath or cough. No hemoptysis. No abdominal pain, diarrhea or constipation. No trauma to the foot. PAST MEDICAL HISTORY: Significant for diabetes mellitus, hypertension, congestive heart failure and obesity, BMI of 31, cataracts and hyperlipidemia. PAST SURGICAL HISTORY: He denies any surgery in the past. ALLERGIES: HE HAS NO KNOWN ALLERGIES. MEDICATIONS AT HOME: Include Risperdal, Cogentin, , hydroxyzine, Lipitor, Glucophage, Lopressor and insulin. PHYSICAL EXAMINATION: GENERAL: On examination, he is in bed, no acute distress. VITAL SIGNS: Temperature of 99.8, heart rate of 107, blood pressure is 167/90, respiratory rate of 19 and oxygenation is at 96% saturation on room air. HEENT: Examination of HEENT is unremarkable. NECK: Supple. LUNGS: Have decreased breath sounds. HEART: Normal S1, S2. ABDOMEN: Soft, nontender. HEENT: Examination of foot has the erythema, discharge consistent with infection. LABORATORY DATA: Laboratory examination reveals a white count of 12,500, hemoglobin of 10, platelets of 322. Sed rate is 100. Chemistries reveals a BUN of 26, creatinine is 2.6 yesterday. Prior to that, the patient's creatinine was 1.1 on a previous admission with glucose of 193 and C-reactive protein of greater than 15. Microbiology is not available. Microbiology from previous admission is 2017 reveals the blood cultures are negative. The creatinine before this admission was in 09/2016, which was 1.1. The patient had an x-ray of the foot, which shows soft tissue involvement, but no osteo. Emergency room chart is reviewed and the patient had an ultrasound of lower extremity, not available at this time. History and physical examination is reviewed. Dr. Diaz's consultation is reviewed. ASSESSMENT AND PLAN: A 51-year-old male with diabetes mellitus, cataract, hyperlipidemia, hypertension, congestive heart failure, presenting with a left foot infection, tachycardia, leukocytosis and kidney failure and acute kidney injury. #1 is severe sepsis secondary to left foot cellulitis, probable underlying osteomyelitis. Should rule out a peripheral arterial disease in a patient with acute kidney injury with the creatinine is changed from 1.1 to 2.6. We will treat the patient with Teflaro. Discontinue the vancomycin and discontinue the Zosyn due to a high sodium load, but not use Zosyn in a patient with congestive heart failure and due to acute kidney injury, we will not use vancomycin and unable to use Zyvox because of the psychiatric medications. We will use Teflaro at 400 mg IV every 12 adjusted for renal failure. Should have an arterial studies, vascular consultation, podiatric consultation. Should have an MRI of the foot to rule out underlying osteomyelitis and we will check on the foot cultures, the blood cultures and wound cultures and we will make further recommendations. MRI and echocardiogram findings are pending and urinalysis is pending. We will follow with you. Nabil Murry MD
[2017-11-08] MEDS: Pantoprazole 40 mg EC Tab PO SCH (05:56)
[2017-11-08 06:24] LABS: BASO # 0.02 K/mm3 (0.0-2.0); BASO % 0.2 % (0.0-3.0); EOS # 0.5 (0.0-0.7); EOS % 5.8 % (1.5-5.0); GRAN # 4.82 (1.4-6.5); GRAN % 59.8 % (50.0-68.0); HEMOGLOBIN 11.1 g/dL (14.0-18.0); LYMPH # 2.2 (1.2-3.4); LYMPH % 26.8 % (22.0-35.0); MEAN CELL VOLUME 83.2 fl (80.0-105.0); MEAN CORPUSCULAR HEMOGLOBIN 28.6 pg (25.0-35.0); MEAN CORPUSCULAR HGB CONC 34.4 g/dl (31.0-37.0); MEAN PLATELET VOLUME 8.7 fl (7.0-11.0); MONO # 0.6 (0.1-0.6); MONO % 7.4 % (1.0-6.0); RBC 3.88 10^6/uL (3.5-6.1); RED CELL DISTRIBUTION WIDTH 11.9 % (11.5-14.5); WHITE BLOOD COUNT 8.1 10^3/ul (4.5-11.0)
[2017-11-08 07:18] LABS: ALBUMIN 3.3 g/dL (3.0-4.8); CALCIUM 8.6 mg/dL (8.4-10.5)
[2017-11-08] MEDS: Insulin Lispro (humaLOG) MEDIUM Coverage SC SCH ×4 (07:42→21:39)
--- NOTE | 2017-11-08 09:09 | CP.PCM.PN ---
Subjective - Date & Time of Evaluation Date of Evaluation: 11/08/17 Objective - Vital Signs/Intake and Output Vital Signs (last 24 hours): Temp Pulse Resp BP Pulse Ox 98.1 F 99 H 20 114/85 96 11/08/17 08:48 11/08/17 08:48 11/08/17 08:48 11/08/17 08:48 11/08/17 08:48 Intake and Output: 11/08/17 11/08/17 06:59 18:59 Intake Total 480 Output Total 400 Balance 80 - Medications Medications: Current Medications Acetaminophen (Tylenol 325mg Tab) 650 mg PO Q6H PRN PRN Reason: Fever >100.4 F Atorvastatin Calcium (Lipitor) 20 mg PO DAILY [facility] Last Admin: 11/07/17 09:49 Dose: 20 mg Benztropine Mesylate (Cogentin) 0.5 mg PO BID [facility] Last Admin: 11/07/17 17:53 Dose: 0.5 mg Heparin Sodium (Porcine) (Heparin) 5,000 units SC Q12 [facility] PRN Reason: Protocol Last Admin: 11/07/17 22:03 Dose: Not Given Hydralazine HCl (Apresoline) 25 mg PO Q8 [facility] Last Admin: 11/08/17 05:55 Dose: 25 mg Hydroxyzine HCl (Atarax) 25 mg PO HS [facility] Last Admin: 11/07/17 21:55 Dose: 25 mg Ceftaroline Fosamil 400 mg/ (Sodium Chloride) 100 mls @ 100 mls/hr IVPB Q12 [facility] PRN Reason: Protocol Stop: 11/16/17 13:31 Last Admin: 11/07/17 14:28 Dose: 100 mls/hr Sodium Chloride (Sodium Chloride 0.45%) 1,000 mls @ 75 mls/hr IV .[id number] [facility] Last Admin: 11/07/17 17:54 Dose: 75 mls/hr Insulin Human Lispro (Humalog Med) 0 units SC ACHS [facility] PRN Reason: Protocol Last Admin: 11/08/17 07:42 Dose: 3 units Metoprolol Tartrate (Lopressor) 25 mg PO BID [facility] Last Admin: 11/07/17 17:53 Dose: 25 mg Multivitamins (Thera Tab) 1 tab PO 0800 [facility] Ondansetron HCl (Zofran Inj) 4 mg IVP Q4H [facility] PRN Reason: Nausea/Vomiting Last Admin: 11/07/17 01:41 Dose: 4 mg Pantoprazole Sodium (Protonix Ec Tab) 40 mg PO 0600 [facility] Last Admin: 11/08/17 05:56 Dose: 40 mg Risperidone (Risperdal Tab) 0.5 mg PO HS [facility] PRN Reason: Protocol Last Admin: 11/07/17 21:56 Dose: 0.5 mg Zinc Sulfate (Zinc Sulfate 220 Mg Cap) 220 mg PO DAILY [facility] Last Admin: 11/07/17 09:48 Dose: 220 mg - Labs Labs: 11/08/17 06:00 11/08/17 06:00
--- NOTE | 2017-11-08 09:19 | US ---
PROCEDURE: Left lower extremity venous US HISTORY: Leg pain and swelling. Evaluate for DVT. PHYSICIAN(S): Srinivasan Rodríguez MD. TECHNIQUE: Duplex sonography and color-flow Doppler with graded compression were used to evaluate the deep venous system of the left lower extremity. FINDINGS: The visualized deep venous system of the left lower extremity is sonographically normal and compressible. Normal wave forms and augmentation are seen. There is no sonographic evidence for deep venous thrombosis in the visualized segments of the left lower extremity. IMPRESSION: 1. No sonographic evidence for deep venous thrombosis in the visualized segments of the left lower extremity.
[2017-11-08] MEDS: Multivitamin Therapeutic Tab PO SCH (09:27)
[2017-11-08] MEDS: Sodium Chloride 0.45% 1,000 ML IV SCH ×2 (09:32→17:10)
--- NOTE | 2017-11-08 11:01 | CP.PCM.PN ---
<Dhara Rojas - Last Filed: 11/08/17 10:56> Subjective - Date & Time of Evaluation Date of Evaluation: 11/08/17 Time of Evaluation: 10:56 - Subjective Subjective: 51 y/o male seen at bedside with attending Dr. Alfaro regarding left foot diabetic ulcer with possible abscess. Pt denies any pain to the left foot today. Pt states he just had his foot MRI done. At present, states he is not currently having F/C/N/V/CP/SOB. States he does not have much sensation in the left foot. Admits that his fasting blood sugars are often in the 160s or higher. Objective - Vital Signs/Intake and Output Vital Signs (last 24 hours): Temp Pulse Resp BP Pulse Ox 98.1 F 99 H 20 114/85 96 11/08/17 08:48 11/08/17 08:48 11/08/17 08:48 11/08/17 08:48 11/08/17 08:48 Intake and Output: 11/08/17 11/08/17 06:59 18:59 Intake Total 480 Output Total 400 Balance 80 - Medications Medications: Current Medications Acetaminophen (Tylenol 325mg Tab) 650 mg PO Q6H PRN PRN Reason: Fever >100.4 F Atorvastatin Calcium (Lipitor) 20 mg PO DAILY [facility] Last Admin: 11/08/17 09:28 Dose: 20 mg Benztropine Mesylate (Cogentin) 0.5 mg PO BID [facility] Last Admin: 11/08/17 09:28 Dose: 0.5 mg Heparin Sodium (Porcine) (Heparin) 5,000 units SC Q12 [facility] PRN Reason: Protocol Last Admin: 11/08/17 09:27 Dose: 5,000 units Hydralazine HCl (Apresoline) 25 mg PO Q8 [facility] Last Admin: 11/08/17 05:55 Dose: 25 mg Hydroxyzine HCl (Atarax) 25 mg PO HS [facility] Last Admin: 11/07/17 21:55 Dose: 25 mg Ceftaroline Fosamil 400 mg/ (Sodium Chloride) 100 mls @ 100 mls/hr IVPB Q12 [facility] PRN Reason: Protocol Stop: 11/16/17 13:31 Last Admin: 11/08/17 09:31 Dose: 100 mls/hr Sodium Chloride (Sodium Chloride 0.45%) 1,000 mls @ 75 mls/hr IV .[id number] [facility] Last Admin: 11/08/17 09:32 Dose: 75 mls/hr Insulin Human Lispro (Humalog Med) 0 units SC ACHS [facility] PRN Reason: Protocol Last Admin: 11/08/17 07:42 Dose: 3 units Metoprolol Tartrate (Lopressor) 25 mg PO BID [facility] Last Admin: 11/08/17 09:27 Dose: 25 mg Multivitamins (Thera Tab) 1 tab PO 0800 [facility] Last Admin: 11/08/17 09:27 Dose: 1 tab Ondansetron HCl (Zofran Inj) 4 mg IVP Q4H [facility] PRN Reason: Nausea/Vomiting Last Admin: 11/07/17 01:41 Dose: 4 mg Pantoprazole Sodium (Protonix Ec Tab) 40 mg PO 0600 [facility] Last Admin: 11/08/17 05:56 Dose: 40 mg Risperidone (Risperdal Tab) 0.5 mg PO HS [facility] PRN Reason: Protocol Last Admin: 11/07/17 21:56 Dose: 0.5 mg Zinc Sulfate (Zinc Sulfate 220 Mg Cap) 220 mg PO DAILY [facility] Last Admin: 11/08/17 09:31 Dose: 220 mg - Labs Labs: 11/08/17 06:00 11/08/17 06:00 - Constitutional Appears: Well, Non-toxic, No Acute Distress - Extremities Exam Additional comments: Left lower extremity focused examination: Vascular: DP/PT pulses nonpalpable, CFT <3 secs x5, pedal hair noted. Temperature gradient warm to warm. Non-pitting edema noted to dorsomedial forefoot Derm: Sub met 1 ulceration with 100% fibronecrotic wound base and hyperkeratotic wound borders, measuring approx 3.5 cm x 2.0 cm x 0.4 cm. (+) malodor and pedrito wound erythema noted. Mild tunneling is noted at distal aspect of ulcer. (-) probe to bone. Minimal fluctuance is noted to distal and medial borders of ulceration. No active drainage or purulence elicited with application of pressure Neuro: protective sensation grossly intact. Ortho: No tenderness to palpation to the ulceration site - Neurological Exam Neurological Exam: Alert, Awake, Oriented x3 - Psychiatric Exam Psychiatric exam: Normal Affect, Normal Mood Assessment and Plan - Assessment and Plan (Free Text) Assessment: 51 y/o male with left foot diabetic ulceration with possible underyling abscess Plan: Pt seen and evaluated with attending Dr. Srinivasan Alfaro Pt remains afebrile, absent leukocytosis X-rays (-) for any acute osseous abnormalities, no erosive changes suggestive of OM Foot MRI performed, await report Rx Santyl for enzymatic debridement of wound bed Will consider possible surgical debridement of wound on Sunday 11/12 PT consulted, please train patient with forefoot offloading shoe for gait stability and balance Will continue to follow while in house <Srinivasan Alfaro F - Last Filed: 11/08/17 11:43> Objective - Vital Signs/Intake and Output Vital Signs (last 24 hours): Temp Pulse Resp BP Pulse Ox 98.1 F 99 H 20 114/85 96 11/08/17 08:48 11/08/17 08:48 11/08/17 08:48 11/08/17 08:48 11/08/17 08:48 Intake and Output: 11/08/17 11/08/17 06:59 18:59 Intake Total 480 Output Total 400 Balance 80 - Medications Medications: Current Medications Acetaminophen (Tylenol 325mg Tab) 650 mg PO Q6H PRN PRN Reason: Fever >100.4 F Atorvastatin Calcium (Lipitor) 20 mg PO DAILY [facility] Last Admin: 11/08/17 09:28 Dose: 20 mg Benztropine Mesylate (Cogentin) 0.5 mg PO BID [facility] Last Admin: 11/08/17 09:28 Dose: 0.5 mg Collagenase (Santyl) 0 gm TOP DAILY [facility] Heparin Sodium (Porcine) (Heparin) 5,000 units SC Q12 [facility] PRN Reason: Protocol Last Admin: 11/08/17 09:27 Dose: 5,000 units Hydralazine HCl (Apresoline) 25 mg PO Q8 [facility] Last Admin: 11/08/17 05:55 Dose: 25 mg Hydroxyzine HCl (Atarax) 25 mg PO HS [facility] Last Admin: 11/07/17 21:55 Dose: 25 mg Ceftaroline Fosamil 400 mg/ (Sodium Chloride) 100 mls @ 100 mls/hr IVPB Q12 [facility] PRN Reason: Protocol Stop: 11/16/17 13:31 Last Admin: 11/08/17 09:31 Dose: 100 mls/hr Sodium Chloride (Sodium Chloride 0.45%) 1,000 mls @ 75 mls/hr IV .[id number] [facility] Last Admin: 11/08/17 09:32 Dose: 75 mls/hr Insulin Human Lispro (Humalog Med) 0 units SC ACHS [facility] PRN Reason: Protocol Last Admin: 11/08/17 07:42 Dose: 3 units Metoprolol Tartrate (Lopressor) 25 mg PO BID [facility] Last Admin: 11/08/17 09:27 Dose: 25 mg Multivitamins (Thera Tab) 1 tab PO 0800 [facility] Last Admin: 11/08/17 09:27 Dose: 1 tab Ondansetron HCl (Zofran Inj) 4 mg IVP Q4H PRN PRN Reason: Nausea/Vomiting Last Admin: 11/07/17 01:41 Dose: 4 mg Pantoprazole Sodium (Protonix Ec Tab) 40 mg PO 0600 [facility] Last Admin: 11/08/17 05:56 Dose: 40 mg Risperidone (Risperdal Tab) 0.5 mg PO HS [facility] PRN Reason: Protocol Last Admin: 11/07/17 21:56 Dose: 0.5 mg Zinc Sulfate (Zinc Sulfate 220 Mg Cap) 220 mg PO DAILY [facility] Last Admin: 11/08/17 09:31 Dose: 220 mg - Labs Labs: 11/08/17 06:00 11/08/17 06:00
--- NOTE | 2017-11-08 13:23 | MRI ---
MRI left forefoot History: Ulcer. Evaluate for osteomyelitis. Comparison: None available. Technique: Multi-echo multiplanar sequences were performed through the left foot without the use of intravenous contrast. Findings: Prominent soft tissue ulceration and defect noted at the medial volar aspect of the 1st metatarsal bone at the level of the head measuring up to 1.3 centimeters. Within the adjacent medial aspect of the 1st metatarsal head, there is some mild patchy reactive bone marrow edema without gross decreased T1 signal. These findings are nonspecific ; however, early acute and or developing acute osteomyelitic changes cannot be excluded. Continued interval followup and or correlation with three-phase bone scan may be helpful if clinically indicated. Moderate to severe hallux valgus deformity. Degenerative changes at the 1st metatarsal sesamoid joint spaces with some degenerative change. Failure of fat suppression at the level of 1st through 5th phalanges which markedly limits evaluation. Reticulation and edema within the subcutaneous soft tissues suggestive for possible cellulitis. Minimal nonspecific reactive edema at the 5th distal phalanx. Prominent degenerative changes noted at the dorsal aspect of the talonavicular joint space with bony spurring. Mild fraying at the level of the Lisfranc ligament which may represent a sprain and or partial tear. Clinical correlation. Impression: 1. Prominent soft tissue ulceration and defect noted at the medial volar aspect of the 1st metatarsal bone at the level of the head measuring up to 1.3 centimeters. Within the adjacent medial aspect of the 1st metatarsal head, there is some mild patchy reactive bone marrow edema without gross decreased T1 signal. These findings are nonspecific ; however, early acute and or developing acute osteomyelitic changes cannot be excluded. Continued interval followup and or correlation with three-phase bone scan may be helpful if clinically indicated. 2. Moderate to severe hallux valgus deformity. Degenerative changes at the 1st metatarsal sesamoid joint spaces with some degenerative change. 3. Failure of fat suppression at the level of 1st through 5th phalanges which markedly limits evaluation. 4. Reticulation and edema within the subcutaneous soft tissues suggestive for possible cellulitis. 5. Minimal nonspecific reactive edema at the 5th distal phalanx. 6. Prominent degenerative changes noted at the dorsal aspect of the talonavicular joint space with bony spurring. 7. Mild fraying at the level of the Lisfranc ligament which may represent a sprain and or partial tear. Clinical correlation.
--- NOTE | 2017-11-08 13:59 | CP.PCM.PN ---
<Mahesh Livingston - Last Filed: 11/08/17 16:42> Subjective - Date & Time of Evaluation Date of Evaluation: 11/08/17 Time of Evaluation: 13:55 - Subjective Subjective: Patient seen and examined at bedside, no acute events overnight. Patient states that his left foot is a little bit sore today. Denies chest pain, shortness of breath, fevers, or chills. Objective - Vital Signs/Intake and Output Vital Signs (last 24 hours): Temp Pulse Resp BP Pulse Ox 98.1 F 99 H 20 114/85 96 11/08/17 08:48 11/08/17 08:48 11/08/17 08:48 11/08/17 08:48 11/08/17 08:48 Intake and Output: 11/08/17 11/08/17 06:59 18:59 Intake Total 480 Output Total 400 Balance 80 - Medications Medications: Current Medications Acetaminophen (Tylenol 325mg Tab) 650 mg PO Q6H PRN PRN Reason: Fever >100.4 F Atorvastatin Calcium (Lipitor) 20 mg PO DAILY [facility] Last Admin: 11/08/17 09:28 Dose: 20 mg Benztropine Mesylate (Cogentin) 0.5 mg PO BID [facility] Last Admin: 11/08/17 09:28 Dose: 0.5 mg Collagenase (Santyl) 0 gm TOP DAILY [facility] Heparin Sodium (Porcine) (Heparin) 5,000 units SC Q12 [facility] PRN Reason: Protocol Last Admin: 11/08/17 09:27 Dose: 5,000 units Hydralazine HCl (Apresoline) 25 mg PO Q8 [facility] Last Admin: 11/08/17 13:07 Dose: 25 mg Hydroxyzine HCl (Atarax) 25 mg PO HS [facility] Last Admin: 11/07/17 21:55 Dose: 25 mg Ceftaroline Fosamil 400 mg/ (Sodium Chloride) 100 mls @ 100 mls/hr IVPB Q12 [facility] PRN Reason: Protocol Stop: 11/16/17 13:31 Last Admin: 11/08/17 09:31 Dose: 100 mls/hr Sodium Chloride (Sodium Chloride 0.45%) 1,000 mls @ 75 mls/hr IV .[id number] [facility] Last Admin: 11/08/17 09:32 Dose: 75 mls/hr Insulin Human Lispro (Humalog Med) 0 units SC ACHS [facility] PRN Reason: Protocol Last Admin: 11/08/17 12:24 Dose: 1 units Metoprolol Tartrate (Lopressor) 25 mg PO BID [facility] Last Admin: 11/08/17 09:27 Dose: 25 mg Multivitamins (Thera Tab) 1 tab PO 0800 [facility] Last Admin: 11/08/17 09:27 Dose: 1 tab Ondansetron HCl (Zofran Inj) 4 mg IVP Q4H PRN PRN Reason: Nausea/Vomiting Last Admin: 11/07/17 01:41 Dose: 4 mg Pantoprazole Sodium (Protonix Ec Tab) 40 mg PO 0600 [facility] Last Admin: 11/08/17 05:56 Dose: 40 mg Risperidone (Risperdal Tab) 0.5 mg PO HS [facility] PRN Reason: Protocol Last Admin: 11/07/17 21:56 Dose: 0.5 mg Zinc Sulfate (Zinc Sulfate 220 Mg Cap) 220 mg PO DAILY [facility] Last Admin: 11/08/17 09:31 Dose: 220 mg - Labs Labs: 11/08/17 06:00 11/08/17 06:00 Assessment and Plan - Assessment and Plan (Free Text) Assessment: Assessment: Mr. Herman is a 51 year old male with PMHx of HTN, HLD, DM2, GERD, psychotic disorder, and bilateral knee osteoarthritis who was admitted for evaluation and treatment of diabetic ulcer . Plan: Left foot cellulitis - continue tefalro as per ID - gram stain revealed gram positive cocci in chains - elevate L foot - MRI pending as per podo Nausea/Vomiting - continue zofran JAILENE - Likely secondary to infection and dehydration - BUn and creatinine reviewed, trended- improving - normal saline changed to half normal NS @ 75cc/hr in regard to elevated blood pressure Normocytic anemia - hemoglobin reviewed and trended- improved to 12.1 from 10.8 - continue to monitor closely via daily CBC Hx of CHF -Cardiac cath performed 09/20 showed EF of 35-40% -Patient currently euvolemic without sx's of CHF exacerbation -Continue Lopressor and lipitor -Will monitor IV fluids closely Hx of HTN -Continue lopressor -continue hydralazine Patient case reviewed with and plan approved by attending physician, Dr. Kim. <Fara Kim R - Last Filed: 11/09/17 07:54> Objective - Vital Signs/Intake and Output Vital Signs (last 24 hours): Temp Pulse Resp BP Pulse Ox 98.0 F 88 19 149/93 H 94 L 11/08/17 18:00 11/09/17 05:27 11/08/17 18:00 11/09/17 05:27 11/08/17 18:00 Intake and Output: 11/09/17 11/09/17 06:59 18:59 Intake Total 120 Balance 120 - Medications Medications: Current Medications Acetaminophen (Tylenol 325mg Tab) 650 mg PO Q6H PRN PRN Reason: Fever >100.4 F Atorvastatin Calcium (Lipitor) 20 mg PO DAILY [facility] Last Admin: 11/08/17 09:28 Dose: 20 mg Benztropine Mesylate (Cogentin) 0.5 mg PO BID [facility] Last Admin: 11/08/17 17:10 Dose: 0.5 mg Collagenase (Santyl) 0 gm TOP DAILY [facility] Heparin Sodium (Porcine) (Heparin) 5,000 units SC Q12 [facility] PRN Reason: Protocol Last Admin: 11/08/17 21:32 Dose: 5,000 units Hydralazine HCl (Apresoline) 25 mg PO Q8 [facility] Last Admin: 11/09/17 05:27 Dose: 25 mg Hydroxyzine HCl (Atarax) 25 mg PO HS [facility] Last Admin: 11/08/17 21:32 Dose: 25 mg Ceftaroline Fosamil 400 mg/ (Sodium Chloride) 100 mls @ 100 mls/hr IVPB Q12 [facility] PRN Reason: Protocol Stop: 11/16/17 13:31 Last Admin: 11/08/17 21:33 Dose: 100 mls/hr Sodium Chloride (Sodium Chloride 0.45%) 1,000 mls @ 75 mls/hr IV .[id number] [facility] Last Admin: 11/08/17 17:10 Dose: 75 mls/hr Insulin Human Lispro (Humalog Med) 0 units SC ACHS [facility] PRN Reason: Protocol Last Admin: 11/08/17 21:39 Dose: Not Given Metoprolol Tartrate (Lopressor) 25 mg PO BID [facility] Last Admin: 11/08/17 17:10 Dose: 25 mg Multivitamins (Thera Tab) 1 tab PO 0800 [facility] Last Admin: 11/08/17 09:27 Dose: 1 tab Ondansetron HCl (Zofran Inj) 4 mg IVP Q4H PRN PRN Reason: Nausea/Vomiting Last Admin: 11/07/17 01:41 Dose: 4 mg Pantoprazole Sodium (Protonix Ec Tab) 40 mg PO 0600 [facility] Last Admin: 11/09/17 05:28 Dose: 40 mg Risperidone (Risperdal Tab) 0.5 mg PO HS [facility] PRN Reason: Protocol Last Admin: 11/08/17 21:32 Dose: 0.5 mg Zinc Sulfate (Zinc Sulfate 220 Mg Cap) 220 mg PO DAILY [facility] Last Admin: 11/08/17 09:31 Dose: 220 mg - Labs Labs: 11/09/17 06:00 11/09/17 06:00 Attending/Attestation - Attestation I have personally seen and examined this patient.: Yes I have fully participated in the care of the patient.: Yes I have reviewed all pertinent clinical information, including history, physical exam and plan: Yes Notes (Text): Patient seen and examined by me at 10AM 11/08/17 with resident. Case including physical assessment and plan discussed with resident. Agree with above with following additions and changes. Patient states he is feeling okay. Complains of some pain in his left foot which is worsened a little since yesterday. The pain does radiate up to his anterior navarro. Pain comes and goes and can be sharp, dull and achy. He denies any chest pain or shortness of breath. No nausea or vomiting. No abdominal pain. No headaches or dizziness. No fevers or chills. No dysuria. No diarrhea or constipation. Physical exam: Gen: Patient is awake and alert lying in bed in no acute distress HEENT: Normocephalic atraumatic, extraocular muscles intact, pupils equal reactive, oropharynx is pink and moist, no pharyngeal erythema or exudate appreciated, neck is supple. Cardiovascular: Normal rhythm, normal S1-S2, no murmurs rubs or gallops appreciated Pulmonary: Normal respiratory effort. No rhonchi, rales, or wheezing appreciated Gastrointestinal: Soft, nontender, nondistended, positive bowel sounds all 4 quadrants, no guarding Musculoskeletal: Moves all extremities, no calf tenderness. Left foot dressing clean, dry, and intact. Vascular: Decreased pulses left foot, pulses appreciated with Doppler Central nervous system: AAO 3 Dermatologic: Skin warm and dry Assessment and plan: Patient is a 51-year-old male who presented with left foot cellulitis and left dorsal diabetic foot ulcer. ID consultation, recommendations appreciated. Continue Teflaro. Podiatry consulted, recommendations appreciated. Initial wound cultures positive for gram-positive cocci. Pending final results. Pending wound culture results from I&D. MRI results pending pending. X-ray did not show osteomyelitis or any fracture. Acute kidney injury is likely secondary to dehydration and infection. Continues to improve. Continue with IV fluids. Anemia is chronic. H&H stable. Chronic systolic CHF. Patient is currently not in exacerbation. Monitor closely as patient is on IV fluids. Continue risperidone, Atarax, and Cogentin for history of psychotic disorder. Continue insulin sliding scale and diabetic diet for history of diabetes. Continue hydralazine and metoprolol for hypertension. Case was discussed in detail with the patient regarding current diagnosis and treatment plan
--- NOTE | 2017-11-08 23:09 | PN ---
DATE: 11/08/2017 SUBJECTIVE: The patient is in bed, seen earlier today in room 370. No fevers, no chills. PHYSICAL EXAMINATION: VITAL SIGNS: Temperature is 98, blood pressure is 112/70, and respiratory rate of 16. HEENT: Unremarkable. NECK: Supple. LUNGS: Decreased breath sounds. HEART: Normal S1, S2. ABDOMEN: Soft, nontender. No organomegaly. No rebound. No guarding or masses. LABORATORY EXAMINATION: Reveals the patient's white count is down to 8.1. Sed rate is 100. Chemistries are noted. Creatinine is 1.7. Urinalysis is noted. Microbiology has a Gram-negative mayo. Blood cultures are negative. The identification of Gram-negative mayo is pending. Review of orders reveals the patient should be on ceftaroline and the patient had an MRI of the foot with degenerative joint changes. Nonspecific early acute or developing acute osteomyelitic changes cannot be excluded, nonspecific MRI findings read by Dr. Korey Bojorquez. ASSESSMENT AND PLAN: A 51-year-old male with diabetes mellitus, cataract, hyperlipidemia, hypertension, congestive heart failure, presenting with a left foot Gram-negative mayo with acute kidney injury, severe sepsis secondary to Gram-negative mayo, left foot cellulitis with probable osteomyelitis. Also, the MRI is nonspecific. Based on the elevated sed rate, we are awaiting for identification and sensitivity of the Gram-negative mayo. We will make further recommendations. Nabil Murry MD
[2017-11-09] MEDS: Pantoprazole 40 mg EC Tab PO SCH (05:28)
[2017-11-09 06:34] LABS: BASO # 0.03 K/mm3 (0.0-2.0); BASO % 0.4 % (0.0-3.0); EOS # 0.6 (0.0-0.7); EOS % 6.6 % (1.5-5.0); GRAN # 4.88 (1.4-6.5); GRAN % 57.8 % (50.0-68.0); HEMOGLOBIN 11.4 g/dL (14.0-18.0); LYMPH # 2.4 (1.2-3.4); LYMPH % 28.4 % (22.0-35.0); MEAN CELL VOLUME 83.7 fl (80.0-105.0); MEAN CORPUSCULAR HEMOGLOBIN 28.2 pg (25.0-35.0); MEAN CORPUSCULAR HGB CONC 33.7 g/dl (31.0-37.0); MEAN PLATELET VOLUME 8.6 fl (7.0-11.0); MONO # 0.6 (0.1-0.6); MONO % 6.8 % (1.0-6.0); RBC 4.04 10^6/uL (3.5-6.1); RED CELL DISTRIBUTION WIDTH 11.7 % (11.5-14.5); WHITE BLOOD COUNT 8.4 10^3/ul (4.5-11.0)
[2017-11-09 06:42] LABS: ALBUMIN 3.3 g/dL (3.0-4.8); CALCIUM 8.6 mg/dL (8.4-10.5)
--- NOTE | 2017-11-09 08:11 | CARD ---
APPROVED REPORT EXAM: Two-dimensional and M-mode echocardiogram with Doppler and color Doppler. Other Information Quality : GoodRhythm : INDICATION HX-CHF 2D DIMENSIONS Left Atrium (2D)4.1 (1.6-4.0cm)IVSd1.2 (0.7-1.1cm) LVDd5.0 (3.9-5.9cm)PWd1.2 (0.7-1.1cm) LVDs3.6 (2.5-4.0cm)FS (%) 29.1 % LVEF (%)55.0 (>50%) M-Mode DIMENSIONS Aortic Root3.50 (2.2-3.7cm)Aortic Cusp Exc.1.90 (1.5-2.0cm) Aortic Valve AoV Peak Gbgqxmwl709.0cm/s Mitral Valve MV E Zljivzbj69.8cm/sMV A Ifgsllik59.5cm/sE/A ratio0.7 TDI Lateral E' Peak V5.95cm/sMedial E' Peak V5.46cm/sE/Lateral E'8.7 E/Medial E'9.5 Pulmonary Valve PV Peak Xrtibamj50.5cm/sPV Peak Grad.2mmHg Tricuspid Valve TR Peak [id number]/sRAP [id number] Peak Gr.17mmHg [id number] LEFT VENTRICLE The left ventricle is normal size. There is mild concentric left ventricular hypertrophy. The left ventricular function is normal. The left ventricular ejection fraction is within the normal range. There is normal LV segmental wall motion. RIGHT VENTRICLE The right ventricle is normal size. ATRIA The left atrium is mildly dilated. The right atrium size is normal. The interatrial septum is intact with no evidence for an atrial septal defect. AORTIC VALVE The aortic valve is normal in structure. MITRAL VALVE The mitral valve is normal in structure. Mitral regurgitation is trace. TRICUSPID VALVE The tricuspid valve is normal in structure. There is trace tricuspid regurgitation. PULMONIC VALVE The pulmonic valve is not well visualized. There is trace pulmonic valvular regurgitation. GREAT VESSELS The aortic root is normal in size. PERICARDIAL EFFUSION There is no pericardial effusion. <Conclusion> The left ventricle is normal size. There is mild concentric left ventricular hypertrophy. The left ventricular function is normal.
[2017-11-09] MEDS: Insulin Lispro (humaLOG) MEDIUM Coverage SC SCH ×4 (09:06→22:18)
[2017-11-09] MEDS: Multivitamin Therapeutic Tab PO SCH (09:08)
[2017-11-09] MEDS: Sodium Chloride 0.45% 1,000 ML IV SCH (09:08)
[2017-11-09] MEDS: Collagenase 250 Units/gm Ointment(30 gm) TOP SCH (09:09)
--- NOTE | 2017-11-09 12:31 | CP.PCM.PN ---
Subjective - Date & Time of Evaluation Date of Evaluation: 11/09/17 Time of Evaluation: 12:28 - Subjective Subjective: 51 y/o male seen at bedside this morning regarding left foot diabetic ulcer with surrounding fluctuance. Pt resting in bed with forefoot offloading shoe in place to LLE. At present, states he is not currently having F/C/N/V/CP/SOB. Denies pain in the left foot. Says he is walking fine with the shoe. Objective - Vital Signs/Intake and Output Vital Signs (last 24 hours): Temp Pulse Resp BP Pulse Ox 98.1 F 88 20 150/88 95 11/09/17 08:33 11/09/17 09:08 11/09/17 08:33 11/09/17 09:08 11/09/17 08:33 Intake and Output: 11/09/17 11/09/17 06:59 18:59 Intake Total 120 Balance 120 - Medications Medications: Current Medications Acetaminophen (Tylenol 325mg Tab) 650 mg PO Q6H PRN PRN Reason: Fever >100.4 F Atorvastatin Calcium (Lipitor) 20 mg PO DAILY [facility] Last Admin: 11/09/17 09:08 Dose: 20 mg Benztropine Mesylate (Cogentin) 0.5 mg PO BID [facility] Last Admin: 11/09/17 09:07 Dose: 0.5 mg Collagenase (Santyl) 0 gm TOP DAILY [facility] Last Admin: 11/09/17 09:09 Dose: 1 applic Heparin Sodium (Porcine) (Heparin) 5,000 units SC Q12 [facility] PRN Reason: Protocol Last Admin: 11/09/17 09:06 Dose: 5,000 units Hydralazine HCl (Apresoline) 25 mg PO Q8 [facility] Last Admin: 11/09/17 05:27 Dose: 25 mg Hydroxyzine HCl (Atarax) 25 mg PO HS [facility] Last Admin: 11/08/17 21:32 Dose: 25 mg Ceftaroline Fosamil 400 mg/ (Sodium Chloride) 100 mls @ 100 mls/hr IVPB Q12 [facility] PRN Reason: Protocol Stop: 11/16/17 13:31 Last Admin: 11/09/17 09:48 Dose: 100 mls/hr Sodium Chloride (Sodium Chloride 0.45%) 1,000 mls @ 75 mls/hr IV .[id number] [facility] Last Admin: 11/09/17 09:08 Dose: 75 mls/hr Insulin Human Lispro (Humalog Med) 0 units SC ACHS [facility] PRN Reason: Protocol Last Admin: 11/09/17 11:45 Dose: 1 units Metoprolol Tartrate (Lopressor) 25 mg PO BID [facility] Last Admin: 11/09/17 09:08 Dose: 25 mg Multivitamins (Thera Tab) 1 tab PO 0800 [facility] Last Admin: 11/09/17 09:08 Dose: 1 tab Ondansetron HCl (Zofran Inj) 4 mg IVP Q4H PRN PRN Reason: Nausea/Vomiting Last Admin: 11/07/17 01:41 Dose: 4 mg Pantoprazole Sodium (Protonix Ec Tab) 40 mg PO 0600 [facility] Last Admin: 11/09/17 05:28 Dose: 40 mg Risperidone (Risperdal Tab) 0.5 mg PO HS [facility] PRN Reason: Protocol Last Admin: 11/08/17 21:32 Dose: 0.5 mg Zinc Sulfate (Zinc Sulfate 220 Mg Cap) 220 mg PO DAILY [facility] Last Admin: 11/09/17 09:07 Dose: 220 mg - Labs Labs: 11/09/17 06:00 11/09/17 06:00 - Constitutional Appears: Well, Non-toxic, No Acute Distress - Extremities Exam Additional comments: Left lower extremity focused examination: Vascular: DP/PT pulses nonpalpable, CFT <3 secs x5, pedal hair noted. Temperature gradient warm to warm. Non-pitting edema noted to dorsomedial forefoot Derm: Sub met 1 ulceration with 100% fibronecrotic wound base and hyperkeratotic wound borders, measuring approx 3.5 cm x 2.0 cm x 0.4 cm. Mild malodor and pedrito wound erythema noted. Mild tunneling is noted at distal aspect of ulcer. (-) probe to bone. Minimal fluctuance is noted to distal and medial borders of ulceration. No active drainage or purulence elicited with application of pressure Neuro: protective sensation grossly intact. Ortho: No tenderness to palpation to the ulceration site - Neurological Exam Neurological Exam: Alert, Awake, Oriented x3 - Psychiatric Exam Psychiatric exam: Normal Affect, Normal Mood Assessment and Plan - Assessment and Plan (Free Text) Assessment: 51 y/o male with left foot diabetic ulceration with possible underyling abscess Plan: Pt seen and evaluated at bedside Discussed with attending Dr. Srinivasan Alfaro Pt remains afebrile, absent leukocytosis X-rays (-) for any acute osseous abnormalities, no erosive changes suggestive of OM Foot MRI reveals reactive marrow edema which may represent early acute osteomyelitis (cannot be excluded) Wound cleaned with saline and dressed with Santyl and DSD Pt scheduled for wound debridement on 11/15 Continue offloading and ambulation with forefoot offloading shoe Will continue to follow while in house
--- NOTE | 2017-11-09 17:01 | CP.PCM.PN ---
<Mahesh Livingston - Last Filed: 11/09/17 17:59> Subjective - Date & Time of Evaluation Date of Evaluation: 11/09/17 Time of Evaluation: 16:58 - Subjective Subjective: Medicine progress note: Patient seen and examined at bedside, no acute events overnight. Patient still complains of pain on the left foot. Denies chest pain, shortness of breath, fevers, or chills. Objective - Vital Signs/Intake and Output Vital Signs (last 24 hours): Temp Pulse Resp BP Pulse Ox 98.1 F 73 20 153/93 H 95 11/09/17 08:33 11/09/17 14:13 11/09/17 08:33 11/09/17 14:13 11/09/17 08:33 Intake and Output: 11/09/17 11/09/17 06:59 18:59 Intake Total 120 Balance 120 - Medications Medications: Current Medications Acetaminophen (Tylenol 325mg Tab) 650 mg PO Q6H PRN PRN Reason: Fever >100.4 F Atorvastatin Calcium (Lipitor) 20 mg PO DAILY [facility] Last Admin: 11/09/17 09:08 Dose: 20 mg Benztropine Mesylate (Cogentin) 0.5 mg PO BID [facility] Last Admin: 11/09/17 09:07 Dose: 0.5 mg Collagenase (Santyl) 0 gm TOP DAILY [facility] Last Admin: 11/09/17 09:09 Dose: 1 applic Heparin Sodium (Porcine) (Heparin) 5,000 units SC Q12 [facility] PRN Reason: Protocol Last Admin: 11/09/17 09:06 Dose: 5,000 units Hydralazine HCl (Apresoline) 25 mg PO Q8 [facility] Last Admin: 11/09/17 14:13 Dose: 25 mg Hydroxyzine HCl (Atarax) 25 mg PO HS [facility] Last Admin: 11/08/17 21:32 Dose: 25 mg Ceftaroline Fosamil 400 mg/ (Sodium Chloride) 100 mls @ 100 mls/hr IVPB Q12 [facility] PRN Reason: Protocol Stop: 11/16/17 13:31 Last Admin: 11/09/17 09:48 Dose: 100 mls/hr Sodium Chloride (Sodium Chloride 0.45%) 1,000 mls @ 75 mls/hr IV .[id number] [facility] Last Admin: 11/09/17 09:08 Dose: 75 mls/hr Insulin Human Lispro (Humalog Med) 0 units SC ACHS [facility] PRN Reason: Protocol Last Admin: 11/09/17 11:45 Dose: 1 units Metoprolol Tartrate (Lopressor) 25 mg PO BID [facility] Last Admin: 11/09/17 09:08 Dose: 25 mg Multivitamins (Thera Tab) 1 tab PO 0800 [facility] Last Admin: 11/09/17 09:08 Dose: 1 tab Ondansetron HCl (Zofran Inj) 4 mg IVP Q4H PRN PRN Reason: Nausea/Vomiting Last Admin: 11/07/17 01:41 Dose: 4 mg Pantoprazole Sodium (Protonix Ec Tab) 40 mg PO 0600 [facility] Last Admin: 11/09/17 05:28 Dose: 40 mg Risperidone (Risperdal Tab) 0.5 mg PO HS [facility] PRN Reason: Protocol Last Admin: 11/08/17 21:32 Dose: 0.5 mg Zinc Sulfate (Zinc Sulfate 220 Mg Cap) 220 mg PO DAILY [facility] Last Admin: 11/09/17 09:07 Dose: 220 mg - Labs Labs: 11/09/17 06:00 11/09/17 06:00 - Constitutional Appears: No Acute Distress - Head Exam Head Exam: ATRAUMATIC, NORMAL INSPECTION - Eye Exam Eye Exam: Normal appearance - ENT Exam ENT Exam: Mucous Membranes Moist - Respiratory Exam Respiratory Exam: Clear to Ausculation Bilateral, NORMAL BREATHING PATTERN. absent: Rales, Rhonchi, Wheezes - Cardiovascular Exam Cardiovascular Exam: REGULAR RHYTHM, +S1, +S2. absent: Gallop, Rubs, Murmur - GI/Abdominal Exam GI & Abdominal Exam: Soft, Normal Bowel Sounds. absent: Tenderness - Extremities Exam Extremities Exam: absent: Calf Tenderness, Normal Inspection Additional comments: Left toe dressing was intact, left toe ulcer has serosanguinous discharge. - Neurological Exam Neurological Exam: Alert, Awake, Oriented x3 - Psychiatric Exam Psychiatric exam: Normal Affect, Normal Mood - Skin Skin Exam: Dry, Normal Color, Warm Assessment and Plan - Assessment and Plan (Free Text) Assessment: Assessment: Mr. Herman is a 51 year old male with PMHx of HTN, HLD, DM2, GERD, psychotic disorder, and bilateral knee osteoarthritis who was admitted for evaluation and treatment of diabetic ulcer . Plan: Left foot cellulitis - Continue Ceftaroline 400mg IV as per ID. - Wound culture grew Citrobacter diversus and Enterobacter faecalis. - MRI of left foot showed reactive marrow edema which may represent early acute osteomyelitis, acute osteomyolitic changes cannot be excluded. - Podiatry and ID on board. - Will discuss with podiatry and ID for possible treatment for osteomyelitis. - As per social work, patient has agreed to go to SNF for antibiotics treatment if necessary. - Elevate left foot and keep wound site clean. Normocytic anemia - Hemoglobin reviewed and trended- improved to 11.4 from 11.1 - Continue to monitor closely via daily CBC Hx of CHF - Cardiac catheterization performed 09/20 showed EF of 35-40%. Cardiac echo was repeated 11/08 and showed EF >55%. - Patient currently euvolemic without symptoms of CHF exacerbation. - Continue Lopressor and lipitor. - IV fluids changed to half NS @ 100mL/hr. Hx of HTN -Continue lopressor. -continue hydralazine. Nausea/Vomiting (resolved) - continue zofran. JAILENE (resolved) - Likely secondary to infection and dehydration - BUn and creatinine reviewed, trended- improving. Creatinine was 0.7 today. Patient case reviewed with and plan approved by attending physician, Dr. Kim. <Fara Kim R - Last Filed: 11/10/17 08:59> Objective - Vital Signs/Intake and Output Vital Signs (last 24 hours): Temp Pulse Resp BP Pulse Ox 97.0 F L 89 19 161/90 H 93 L 11/10/17 06:00 11/10/17 06:00 11/10/17 06:00 11/10/17 06:02 11/10/17 06:00 Intake and Output: 11/10/17 11/10/17 06:59 18:59 Intake Total 0 Balance 0 - Medications Medications: Current Medications Acetaminophen (Tylenol 325mg Tab) 650 mg PO Q6H PRN PRN Reason: Fever >100.4 F Atorvastatin Calcium (Lipitor) 20 mg PO DAILY [facility] Last Admin: 11/09/17 09:08 Dose: 20 mg Benztropine Mesylate (Cogentin) 0.5 mg PO BID [facility] Last Admin: 11/09/17 17:34 Dose: 0.5 mg Collagenase (Santyl) 0 gm TOP DAILY [facility] Last Admin: 11/09/17 09:09 Dose: 1 applic Heparin Sodium (Porcine) (Heparin) 5,000 units SC Q12 [facility] PRN Reason: Protocol Last Admin: 11/09/17 22:18 Dose: 5,000 units Hydralazine HCl (Apresoline) 25 mg PO Q8 [facility] Last Admin: 11/10/17 06:02 Dose: 25 mg Hydroxyzine HCl (Atarax) 25 mg PO HS [facility] Last Admin: 11/09/17 22:17 Dose: 25 mg Sodium Chloride (Sodium Chloride 0.45%) 1,000 mls @ 100 mls/hr IV .Q10H [facility] Last Admin: 11/09/17 17:35 Dose: 100 mls/hr Piperacillin Sod/Tazobactam Sod (Zosyn 2.25 Gm In 0.9% 100 Ml) 2.25 gm in 100 mls @ 100 mls/hr IVPB Q6 [facility] PRN Reason: Protocol Stop: 12/08/17 00:01 Last Admin: 11/10/17 06:02 Dose: 100 mls/hr Insulin Human Lispro (Humalog Med) 0 units SC ACHS [facility] PRN Reason: Protocol Last Admin: 11/10/17 08:24 Dose: 1 units Metoprolol Tartrate (Lopressor) 25 mg PO BID [facility] Last Admin: 11/09/17 17:34 Dose: 25 mg Multivitamins (Thera Tab) 1 tab PO 0800 [facility] Last Admin: 11/10/17 08:27 Dose: 1 tab Ondansetron HCl (Zofran Inj) 4 mg IVP Q4H PRN PRN Reason: Nausea/Vomiting Last Admin: 11/07/17 01:41 Dose: 4 mg Pantoprazole Sodium (Protonix Ec Tab) 40 mg PO 0600 [facility] Last Admin: 11/10/17 06:03 Dose: 40 mg Risperidone (Risperdal Tab) 0.5 mg PO [facility] PRN Reason: Protocol Last Admin: 11/09/17 22:18 Dose: 0.5 mg Zinc Sulfate (Zinc Sulfate 220 Mg Cap) 220 mg PO DAILY [facility] Last Admin: 11/09/17 09:07 Dose: 220 mg - Labs Labs: 11/09/17 06:00 11/09/17 06:00 Attending/Attestation - Attestation I have personally seen and examined this patient.: Yes I have fully participated in the care of the patient.: Yes I have reviewed all pertinent clinical information, including history, physical exam and plan: Yes Notes (Text): Patient seen and examined by me at 10:20AM 11/09/17 with resident. Case including physical assessment and plan discussed with resident. Agree with above with following additions and changes. Patient states he is feeling pretty good. Still having some pain at the left foot and anterior navarro. Pain worsened with palpation and movement. He denies any chest pain or shortness of breath. No nausea or vomiting. No abdominal pain. No headaches or dizziness. No fevers or chills. No dysuria. No diarrhea or constipation. Physical exam: Gen: Patient is awake and alert lying in bed in no acute distress HEENT: Normocephalic atraumatic, extraocular muscles intact, pupils equal reactive, oropharynx is pink and moist, no pharyngeal erythema or exudate appreciated, neck is supple. Cardiovascular: Normal rhythm, normal S1-S2, no murmurs rubs or gallops appreciated Pulmonary: Normal respiratory effort. No rhonchi, rales, or wheezing appreciated Gastrointestinal: Soft, nontender, nondistended, positive bowel sounds all 4 quadrants, no guarding Musculoskeletal: Moves all extremities, no calf tenderness. Left foot dressing intact. Left foot in place. Dressing with mild saturation with serosanguineous output. Vascular: Decreased pulses left foot, pulses appreciated with Doppler Central nervous system: AAO 3 Dermatologic: Skin warm and dry Assessment and plan: Patient is a 51-year-old male who presented with left foot cellulitis and left dorsal diabetic foot ulcer. ID consulted, recommendations appreciated. Continue Teflaro. Podiatry consulted, recommendations appreciated. Wound cultures positive for Enterococcus faecalis and Citrobacter Diversus. MRI of the foot is unable to rule out osteomyelitis. May have underlying osteomyelitis. Follow up with ID for antibiotic recommendations. Acute kidney injury is likely secondary to dehydration and infection. Creatinine stable. Continue with IV fluids. Anemia is chronic. H&H stable. History of chronic systolic CHF. However, 2-D echo per hotel supplies salesperson from 11/08/2017 shows an ejection fraction of 55%, left ventricle normal size, mild concentric left ventricular hypertrophy, and left ventricular function is normal. Continue risperidone, Atarax, and Cogentin for history of psychotic disorder. Continue insulin sliding scale and diabetic diet for history of diabetes. Continue hydralazine and metoprolol for hypertension. Case was discussed in detail with the patient and medical coding specialist regarding current diagnosis and treatment plan
[2017-11-09] MEDS ORDERED: Sodium Chloride 0.45% 1,000 ML IV SCH (17:15)
[2017-11-09] MEDS: Piperacillin/Tazobact 2.25gm 2.25 GM/100 ML BAG IVPB SCH (23:56)
--- NOTE | 2017-11-10 02:13 | PN ---
DATE: 11/09/2017 SUBJECTIVE: Patient was seen in room 370, this morning in bed 2. No fevers and chills. No nausea. PHYSICAL EXAMINATION: VITAL SIGNS: Temperature is 98, blood pressure is 140/90, respiratory rate of 20, heart rate of 88. HEENT: Unremarkable. NECK: Supple. LUNGS: Decreased breath sounds. HEART: Normal S1 and S2. ABDOMEN: Soft. LABORATORY DATA: Reveals a white count of 8.4, hemoglobin of 11, sed rate is 100. Chemistries reveals BUN of 16, creatinine of 1.7. Urinalysis is noted. Microbiology is noted with citrobacter and enterococcus. CURRENT MEDICATIONS: Patient is on Teflaro, and the Citrobacter diversus is sensitive to ertapenem, cefazolin, Cipro, Zosyn. The enterococcus is sensitive to ampicillin. ASSESSMENT AND PLAN: This is a 51-year-old male who was seen early this morning in room 370, bed 2, with Citrobacter and enterococcus, left foot cellulitis, and MRI consistent with osteomyelitis, with a sed rate of 100, and C-reactive protein is greater than 15, with a 51-year-old with diabetes mellitus, cataract, hyperlipidemia, hypertension, congestive heart failure, with Citrobacter and enterococcus, cellulitis, and severe sepsis with left foot cellulitis and osteomyelitis. We will switch to Zosyn. Discontinue Teflaro. Will need 4 to 6 weeks of Zosyn, with weekly CBC, SMA-18, sed rate, C-reactive protein. Patient's GFR is 43. We will adjust the Zosyn accordingly. podiatric input. We will follow closely with you. Nabil Murry MD
[2017-11-10] MEDS: Piperacillin/Tazobact 2.25gm 2.25 GM/100 ML BAG IVPB SCH ×3 (06:02→17:37)
[2017-11-10] MEDS: Pantoprazole 40 mg EC Tab PO SCH (06:03)
[2017-11-10] MEDS: Insulin Lispro (humaLOG) MEDIUM Coverage SC SCH ×4 (08:24→22:00)
[2017-11-10] MEDS: Multivitamin Therapeutic Tab PO SCH (08:27)
[2017-11-10] MEDS: Collagenase 250 Units/gm Ointment(30 gm) TOP SCH (09:33)
--- NOTE | 2017-11-10 11:01 | PN ---
DATE: 11/10/2017 SUBJECTIVE: The patient is seen earlier today in room 370 bed 2. No fevers and no chills. PHYSICAL EXAMINATION: VITAL SIGNS: On exam, temperature is 97, blood pressure is 160/90, respiratory rate of 19, heart rate of 89. HEENT: Examination of HEENT is unremarkable. NECK: Supple. LUNGS: Have decreased breath sounds. HEART: Normal S1, S2. ABDOMEN: Soft, nontender. LABORATORY DATA: Laboratory examination reveals a white count of 8.4, hemoglobin of 11, platelets of 364. Sed rate is 100, BUN of 16, creatinine of 1.7. C-reactive protein is greater than 15. Urinalysis is noted. Microbiology reveals Citrobacter diversus and Enterococcus faecalis. Left foot culture from 11/06/2017 has also Citrobacter diversus and Enterococcus faecalis. The Citrobacter is sensitive Citrobacter. Enterococcus is sensitive to ampicillin. Review of orders reveals the patient to be on Zosyn to assess for the renal insufficiency. ASSESSMENT AND PLAN: A 51-year-old male, who was seen early this morning in 370, bed 2 with a left foot cellulitis and osteomyelitis with Citrobacter and Enterococcus with severe sepsis secondary to the left foot cellulitis and osteomyelitis with Citrobacter and Enterococcus, was treated with 4-6 weeks of Zosyn and weekly CBC, SMA-18, sed rate, C-reactive protein. May need to readjust the Zosyn after renal function improves and weekly blood work as stated. Local wound care, vascular evaluation of blood supply and podiatric care. We will follow with you. Nabil Murry MD
--- NOTE | 2017-11-10 11:07 | CP.PCM.PN ---
Subjective - Date & Time of Evaluation Date of Evaluation: 11/10/17 Time of Evaluation: 11:04 - Subjective Subjective: Podiatry progress note for Dr. Alfaro 51 y/o male seen at bedside this morning regarding left foot diabetic ulcer with surrounding fluctuance. Pt resting comfortaly in bed with dressings C/D/I and forefoot offloading shoe on the floor bedside. Denies pain to left foot and lower extremity and any acute events overnight. Denies N/V/F/C/SOB/CP/pain to posterior calf. Denies any other pedal complaints at this time. Objective - Vital Signs/Intake and Output Vital Signs (last 24 hours): Temp Pulse Resp BP Pulse Ox 97.0 F L 89 19 161/90 H 93 L 11/10/17 06:00 11/10/17 06:00 11/10/17 06:00 11/10/17 06:02 11/10/17 06:00 Intake and Output: 11/10/17 11/10/17 06:59 18:59 Intake Total 0 Balance 0 - Medications Medications: Current Medications Acetaminophen (Tylenol 325mg Tab) 650 mg PO Q6H PRN PRN Reason: Fever >100.4 F Atorvastatin Calcium (Lipitor) 20 mg PO DAILY [facility] Last Admin: 11/10/17 09:32 Dose: 20 mg Benztropine Mesylate (Cogentin) 0.5 mg PO BID [facility] Last Admin: 11/10/17 09:32 Dose: 0.5 mg Collagenase (Santyl) 0 gm TOP DAILY [facility] Last Admin: 11/10/17 09:33 Dose: Not Given Heparin Sodium (Porcine) (Heparin) 5,000 units SC Q12 [facility] PRN Reason: Protocol Last Admin: 11/10/17 09:33 Dose: 5,000 units Hydralazine HCl (Apresoline) 25 mg PO Q8 [facility] Last Admin: 11/10/17 06:02 Dose: 25 mg Hydroxyzine HCl (Atarax) 25 mg PO HS [facility] Last Admin: 11/09/17 22:17 Dose: 25 mg Sodium Chloride (Sodium Chloride 0.45%) 1,000 mls @ 100 mls/hr IV .Q10H [facility] Last Admin: 11/09/17 17:35 Dose: 100 mls/hr Piperacillin Sod/Tazobactam Sod (Zosyn 2.25 Gm In 0.9% 100 Ml) 2.25 gm in 100 mls @ 100 mls/hr IVPB Q6 [facility] PRN Reason: Protocol Stop: 12/08/17 00:01 Last Admin: 11/10/17 06:02 Dose: 100 mls/hr Insulin Human Lispro (Humalog Med) 0 units SC ACHS [facility] PRN Reason: Protocol Last Admin: 11/10/17 08:24 Dose: 1 units Metoprolol Tartrate (Lopressor) 25 mg PO BID [facility] Last Admin: 11/10/17 09:33 Dose: 25 mg Multivitamins (Thera Tab) 1 tab PO 0800 [facility] Last Admin: 11/10/17 08:27 Dose: 1 tab Ondansetron HCl (Zofran Inj) 4 mg IVP Q4H PRN PRN Reason: Nausea/Vomiting Last Admin: 11/07/17 01:41 Dose: 4 mg Pantoprazole Sodium (Protonix Ec Tab) 40 mg PO 0600 [facility] Last Admin: 11/10/17 06:03 Dose: 40 mg Risperidone (Risperdal Tab) 0.5 mg PO HS [facility] PRN Reason: Protocol Last Admin: 11/09/17 22:18 Dose: 0.5 mg Zinc Sulfate (Zinc Sulfate 220 Mg Cap) 220 mg PO DAILY [facility] Last Admin: 11/10/17 09:33 Dose: 220 mg - Labs Labs: 11/09/17 06:00 11/09/17 06:00 - Constitutional Appears: Well, Non-toxic, No Acute Distress - Head Exam Head Exam: ATRAUMATIC, NORMOCEPHALIC - Extremities Exam Additional comments: Left lower extremity focused exam Vas - DP/PT pulses nonpalpable, CFT <3 secs x5, pedal hair noted. Temperature gradient warm to warm. Non-pitting edema noted to dorsomedial forefoot Derm - Sub met 1 ulceration with 80% fibronecrotic wound base and 20% pink and granular and hyperkeratotic wound borders, measuring approx 3.5 cm x 2.0 cm x 0.4 cm. Mild malodor and pedrito wound erythema noted. Mild tunneling is noted at distal aspect of ulcer. (-) probe to bone. Minimal fluctuance is noted to distal and medial borders of ulceration. No active drainage or purulence elicited with application of pressure Neuro - protective sensation grossly intact. Ortho - No tenderness to palpation to the ulceration site - Neurological Exam Neurological Exam: Alert, Awake, Oriented x3 - Psychiatric Exam Psychiatric exam: Normal Affect, Normal Mood Assessment and Plan - Assessment and Plan (Free Text) Assessment: 51 y/o male with left foot diabetic ulceration with possible underyling abscess Plan: Pt seen and evaluated at bedside Discussed with attending Dr. Srinivasan Alfaro Pt remains afebrile, absent leukocytosis X-rays (-) for any acute osseous abnormalities, no erosive changes suggestive of OM Foot MRI - reactive marrow edema which may represent early acute osteomyelitis ( cannot be excluded) Wound cleaned with saline and dressed with Santyl and DSD Pt scheduled for wound debridement on 11/15 Continue offloading and ambulation with forefoot offloading shoe Will continue to follow while in house
--- NOTE | 2017-11-10 16:37 | CP.PCM.PN ---
<Surjit Cardenas - Last Filed: 11/10/17 17:07> Subjective - Date & Time of Evaluation Date of Evaluation: 11/10/17 Time of Evaluation: 16:34 - Subjective Subjective: Surjit Cardenas D.O. PGY1 -- Senior Java Architect -- Medicine Progress Note The patient was seen at bedside today, sister present. Per patient, his left foot pain has improved. He denies any pain and/or tenderness to the area. Patient had no acute complaints over night. Patient admits to bowel movement and is able to tolerate PO diet without issue. Patient denies chest pain, shortness of breath, dizziness, fever, chills, nausea, vomiting, and/or constipation. Objective - Vital Signs/Intake and Output Vital Signs (last 24 hours): Temp Pulse Resp BP Pulse Ox 97.0 F L 89 19 161/90 H 93 L 11/10/17 06:00 11/10/17 06:00 11/10/17 06:00 11/10/17 06:02 11/10/17 06:00 Intake and Output: 11/10/17 11/10/17 06:59 18:59 Intake Total 0 800 Balance 0 800 - Medications Medications: Current Medications Acetaminophen (Tylenol 325mg Tab) 650 mg PO Q6H PRN PRN Reason: Fever >100.4 F Atorvastatin Calcium (Lipitor) 20 mg PO DAILY [facility] Last Admin: 11/10/17 09:32 Dose: 20 mg Benztropine Mesylate (Cogentin) 0.5 mg PO BID [facility] Last Admin: 11/10/17 09:32 Dose: 0.5 mg Collagenase (Santyl) 0 gm TOP DAILY [facility] Last Admin: 11/10/17 09:33 Dose: Not Given Heparin Sodium (Porcine) (Heparin) 5,000 units SC Q12 [facility] PRN Reason: Protocol Last Admin: 11/10/17 09:33 Dose: 5,000 units Hydralazine HCl (Apresoline) 25 mg PO Q8 [facility] Last Admin: 11/10/17 13:55 Dose: 25 mg Hydroxyzine HCl (Atarax) 25 mg PO HS [facility] Last Admin: 11/09/17 22:17 Dose: 25 mg Sodium Chloride (Sodium Chloride 0.45%) 1,000 mls @ 100 mls/hr IV .Q10H [facility] Last Admin: 11/09/17 17:35 Dose: 100 mls/hr Piperacillin Sod/Tazobactam Sod (Zosyn 2.25 Gm In 0.9% 100 Ml) 2.25 gm in 100 mls @ 100 mls/hr IVPB Q6 [facility] PRN Reason: Protocol Stop: 12/08/17 00:01 Last Admin: 11/10/17 11:23 Dose: 100 mls/hr Insulin Human Lispro (Humalog Med) 0 units SC ACHS [facility] PRN Reason: Protocol Last Admin: 11/10/17 16:29 Dose: Not Given Metoprolol Tartrate (Lopressor) 25 mg PO BID [facility] Last Admin: 11/10/17 09:33 Dose: 25 mg Multivitamins (Thera Tab) 1 tab PO 0800 [facility] Last Admin: 11/10/17 08:27 Dose: 1 tab Ondansetron HCl (Zofran Inj) 4 mg IVP Q4H PRN PRN Reason: Nausea/Vomiting Last Admin: 11/07/17 01:41 Dose: 4 mg Pantoprazole Sodium (Protonix Ec Tab) 40 mg PO 0600 [facility] Last Admin: 11/10/17 06:03 Dose: 40 mg Risperidone (Risperdal Tab) 0.5 mg PO HS [facility] PRN Reason: Protocol Last Admin: 11/09/17 22:18 Dose: 0.5 mg Zinc Sulfate (Zinc Sulfate 220 Mg Cap) 220 mg PO DAILY [facility] Last Admin: 11/10/17 09:33 Dose: 220 mg - Labs Labs: 11/09/17 06:00 11/09/17 06:00 - Constitutional Appears: Well, Non-toxic, No Acute Distress - Head Exam Head Exam: ATRAUMATIC, NORMAL INSPECTION, NORMOCEPHALIC - Eye Exam Eye Exam: EOMI, Normal appearance, PERRL Pupil Exam: NORMAL ACCOMODATION - ENT Exam ENT Exam: Mucous Membranes Moist, Normal Exam - Neck Exam Neck Exam: Full ROM, Normal Inspection - Respiratory Exam Respiratory Exam: Clear to Ausculation Bilateral, NORMAL BREATHING PATTERN. absent: Accessory Muscle Use, Chest Wall Tenderness, Decreased Breath Sounds, Prolonged Expiratory Phase, Rhonchi, Wheezes, Respiratory Distress, Stridor - Cardiovascular Exam Cardiovascular Exam: REGULAR RHYTHM (at 89 beats per minute ). absent: Bradycardia, Tachycardia, Clicks, Diastolic murmur, Gallop, Rubs, Murmur - GI/Abdominal Exam GI & Abdominal Exam: Soft, Normal Bowel Sounds. absent: Distended, Firm, Guarding, Rigid, Diminished Bowel Sounds, Hyperactive Bowel Sounds, Hypoactive Bowel Sounds, Pulsatile Mass - Extremities Exam Extremities Exam: Full ROM, Normal Capillary Refill. absent: Calf Tenderness, Joint Swelling, Pedal Edema, Tenderness Additional comments: patient has wound dressing applied to left foot. No discharge appreciated on inspection. - Back Exam Back Exam: NORMAL INSPECTION - Neurological Exam Neurological Exam: Alert, Awake, CN II-XII Intact, Normal Gait, Oriented x3 - Psychiatric Exam Psychiatric exam: Flat Affect, Normal Mood - Skin Skin Exam: Dry, Intact, Normal Color, Warm Additional comments: See above description of left foot. Assessment and Plan - Assessment and Plan (Free Text) Assessment: Mr. Herman is a 51 year old male with past medical history of hypertension, hyperlipidemia, GERD, psychotic disorder, bilateral knee osteoarthritis who was admitted for evaluation and treated of diabetic ulcer. Assessment and Plan: Left foot cellulitis, improved Treat with 4-6 weeks of Zosyn and weekly CBC, SMA-18, sed rate, C-reactive protien, as per infectious disease physician, Dr. Jeanmarie MD. 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 increased from previous echo Continue Lopressor and Lipitor Continue IVF History of hypertension Continue lopressor Continue hydralazine Nausea/Vomiting, resolved Continue zofran JAILENE, resolved Likely secondary to infection and dehydration Patient seen with and case reviewed in detail with Attending Physician, Dr. Julio Cardenas D.O. PGY1 -- Senior Java Architect <Fara Kim - Last Filed: 11/10/17 20:47> Objective - Vital Signs/Intake and Output Vital Signs (last 24 hours): Temp Pulse Resp BP Pulse Ox 98.1 F 76 18 171/97 H 100 11/10/17 17:10 11/10/17 17:10 11/10/17 17:10 11/10/17 17:10 11/10/17 17:10 Intake and Output: 11/10/17 11/11/17 18:59 06:59 Intake Total 800 Balance 800 - Medications Medications: Current Medications Acetaminophen (Tylenol 325mg Tab) 650 mg PO Q6H PRN PRN Reason: Fever >100.4 F Atorvastatin Calcium (Lipitor) 20 mg PO DAILY [facility] Last Admin: 11/10/17 09:32 Dose: 20 mg Benztropine Mesylate (Cogentin) 0.5 mg PO BID [facility] Last Admin: 11/10/17 18:09 Dose: 0.5 mg Collagenase (Santyl) 0 gm TOP DAILY [facility] Last Admin: 11/10/17 09:33 Dose: Not Given Heparin Sodium (Porcine) (Heparin) 5,000 units SC Q12 [facility] PRN Reason: Protocol Last Admin: 11/10/17 09:33 Dose: 5,000 units Hydralazine HCl (Apresoline) 25 mg PO Q8 [facility] Last Admin: 11/10/17 13:55 Dose: 25 mg Hydroxyzine HCl (Atarax) 25 mg PO HS [facility] Last Admin: 11/09/17 22:17 Dose: 25 mg Sodium Chloride (Sodium Chloride 0.45%) 1,000 mls @ 100 mls/hr IV .Q10H [facility] Last Admin: 11/09/17 17:35 Dose: 100 mls/hr Piperacillin Sod/Tazobactam Sod (Zosyn 2.25 Gm In 0.9% 100 Ml) 2.25 gm in 100 mls @ 100 mls/hr IVPB Q6 [facility] PRN Reason: Protocol Stop: 12/08/17 00:01 Last Admin: 11/10/17 17:37 Dose: 100 mls/hr Insulin Human Lispro (Humalog Med) 0 units SC ACHS [facility] PRN Reason: Protocol Last Admin: 11/10/17 16:29 Dose: Not Given Metoprolol Tartrate (Lopressor) 25 mg PO BID [facility] Last Admin: 11/10/17 16:00 Dose: 25 mg Multivitamins (Thera Tab) 1 tab PO 0800 [facility] Last Admin: 11/10/17 08:27 Dose: 1 tab Ondansetron HCl (Zofran Inj) 4 mg IVP Q4H PRN PRN Reason: Nausea/Vomiting Last Admin: 11/07/17 01:41 Dose: 4 mg Pantoprazole Sodium (Protonix Ec Tab) 40 mg PO 0600 [facility] Last Admin: 11/10/17 06:03 Dose: 40 mg Risperidone (Risperdal Tab) 0.5 mg PO HS [facility] PRN Reason: Protocol Last Admin: 11/09/17 22:18 Dose: 0.5 mg Zinc Sulfate (Zinc Sulfate 220 Mg Cap) 220 mg PO DAILY [facility] Last Admin: 11/10/17 09:33 Dose: 220 mg - Labs Labs: 11/09/17 06:00 11/09/17 06:00 Attending/Attestation - Attestation I have personally seen and examined this patient.: Yes I have fully participated in the care of the patient.: Yes I have reviewed all pertinent clinical information, including history, physical exam and plan: Yes Notes (Text): Patient seen and examined by me at 11:30AM with resident. Case including physical assessment and plan discussed with resident. Agree with above with following additions and changes. Patient states he is doing ok. Pain in left foot improved today. Denies any chest pain or shortness of breath. No nausea or vomiting. No abdominal pain. No headaches or dizziness. No fevers or chills. No dysuria. No diarrhea or constipation. Physical exam: Gen: Patient is awake and alert lying in bed in no acute distress HEENT: Normocephalic atraumatic, extraocular muscles intact, pupils equal reactive, oropharynx is pink and moist, no pharyngeal erythema or exudate appreciated, neck is supple. Cardiovascular: Normal rhythm, normal S1-S2, no murmurs rubs or gallops appreciated Pulmonary: Normal respiratory effort. No rhonchi, rales, or wheezing appreciated Gastrointestinal: Soft, nontender, nondistended, positive bowel sounds all 4 quadrants, no guarding Musculoskeletal: Moves all extremities, no calf tenderness. Left foot dressing, clean, dry, and intact, no boot noted today. Vascular: Decreased pulses left foot, pulses appreciated with Doppler Central nervous system: AAO 3 Dermatologic: Skin warm and dry Assessment and plan: Patient is a 51-year-old male who presented with left foot cellulitis and left dorsal diabetic foot ulcer. ID consulted, recommendations appreciated. Patient likely with osteomyelitis. Per ID, will need 4-6 weeks of Zosyn. Antibiotics changed to Zosyn, day#2. Podiatry following, recommendations appreciated. Wound cultures positive for Enterococcus faecalis and Citrobacter Diversus. MRI of the foot is unable to rule out osteomyelitis. Acute kidney injury is likely secondary to dehydration and infection. Follow up AM labs. Continue with IV fluids. Anemia is chronic. H&H stable. Follow up AM labs. History of chronic systolic CHF. However, 2-D echo per special projects coordinator from 2017 shows an ejection fraction of 55%, left ventricle normal size, mild concentric left ventricular hypertrophy, and left ventricular function is normal. Continue risperidone, Atarax, and Cogentin for history of psychotic disorder. Continue insulin sliding scale and diabetic diet for diabetes. Continue hydralazine and metoprolol for hypertension. Case was discussed in detail with the patient and medical office technology instructor regarding current diagnosis and treatment plan
[2017-11-11] MEDS: Piperacillin/Tazobact 2.25gm 2.25 GM/100 ML BAG IVPB SCH ×4 (01:05→17:09)
[2017-11-11] MEDS: Pantoprazole 40 mg EC Tab PO SCH (06:01)
[2017-11-11 07:36] LABS: ALBUMIN 3.2 g/dL (3.0-4.8); CALCIUM 8.4 mg/dL (8.4-10.5)
[2017-11-11 07:57] LABS: BASO # 0.04 K/mm3 (0.0-2.0); BASO % 0.4 % (0.0-3.0); EOS # 0.5 (0.0-0.7); EOS % 5.4 % (1.5-5.0); GRAN # 6.16 (1.4-6.5); GRAN % 63.7 % (50.0-68.0); HEMOGLOBIN 10.7 g/dL (14.0-18.0); LYMPH # 2.3 (1.2-3.4); LYMPH % 24.2 % (22.0-35.0); MEAN CORPUSCULAR HEMOGLOBIN 28.1 pg (25.0-35.0); MEAN CORPUSCULAR HGB CONC 33.4 g/dl (31.0-37.0); MEAN PLATELET VOLUME 8.6 fl (7.0-11.0); MONO # 0.6 (0.1-0.6); MONO % 6.3 % (1.0-6.0); RBC 3.81 10^6/uL (3.5-6.1); RED CELL DISTRIBUTION WIDTH 11.7 % (11.5-14.5); WHITE BLOOD COUNT 9.7 10^3/ul (4.5-11.0)
--- NOTE | 2017-11-11 08:05 | CP.PCM.PN ---
<Surjit Cardenas - Last Filed: 11/11/17 23:20> Subjective - Date & Time of Evaluation Date of Evaluation: 11/11/17 Time of Evaluation: 08:03 - Subjective Subjective: Surjit Cardenas D.O. PGY1 -- Boat Rental Clerk -- Medicine Progress Note Patient seen at bedside this morning, and is currently without any complaints. Patient says he has been eating, and admits to bowel movement. No complaints over night. Patient denies pain in his lower extremity. Patient otherwise Objective - Vital Signs/Intake and Output Vital Signs (last 24 hours): Temp Pulse Resp BP Pulse Ox 98.2 F 97 H 18 149/74 94 L 11/11/17 06:00 11/11/17 06:00 11/11/17 06:00 11/11/17 06:00 11/11/17 06:00 Intake and Output: 11/11/17 11/11/17 06:59 18:59 Intake Total 420 Output Total 0 Balance 420 - Medications Medications: Current Medications Acetaminophen (Tylenol 325mg Tab) 650 mg PO Q6H PRN PRN Reason: Fever >100.4 F Atorvastatin Calcium (Lipitor) 20 mg PO DAILY [facility] Last Admin: 11/10/17 09:32 Dose: 20 mg Benztropine Mesylate (Cogentin) 0.5 mg PO BID [facility] Last Admin: 11/10/17 18:09 Dose: 0.5 mg Collagenase (Santyl) 0 gm TOP DAILY [facility] Last Admin: 11/10/17 09:33 Dose: Not Given Heparin Sodium (Porcine) (Heparin) 5,000 units SC Q12 [facility] PRN Reason: Protocol Last Admin: 11/10/17 22:00 Dose: 5,000 units Hydralazine HCl (Apresoline) 25 mg PO Q8 [facility] Last Admin: 11/11/17 06:00 Dose: 25 mg Hydroxyzine HCl (Atarax) 25 mg PO HS [facility] Last Admin: 11/10/17 22:00 Dose: 25 mg Sodium Chloride (Sodium Chloride 0.45%) 1,000 mls @ 100 mls/hr IV .Q10H [facility] Last Admin: 11/09/17 17:35 Dose: 100 mls/hr Piperacillin Sod/Tazobactam Sod (Zosyn 2.25 Gm In 0.9% 100 Ml) 2.25 gm in 100 mls @ 100 mls/hr IVPB Q6 [facility] PRN Reason: Protocol Stop: 12/08/17 00:01 Last Admin: 11/11/17 06:02 Dose: 100 mls/hr Insulin Human Lispro (Humalog Med) 0 units SC ACHS [facility] PRN Reason: Protocol Last Admin: 11/10/17 22:00 Dose: Not Given Metoprolol Tartrate (Lopressor) 25 mg PO BID [facility] Last Admin: 11/10/17 16:00 Dose: 25 mg Multivitamins (Thera Tab) 1 tab PO 0800 [facility] Last Admin: 11/10/17 08:27 Dose: 1 tab Ondansetron HCl (Zofran Inj) 4 mg IVP Q4H PRN PRN Reason: Nausea/Vomiting Last Admin: 11/07/17 01:41 Dose: 4 mg Pantoprazole Sodium (Protonix Ec Tab) 40 mg PO 0600 [facility] Last Admin: 11/11/17 06:01 Dose: 40 mg Risperidone (Risperdal Tab) 0.5 mg PO HS [facility] PRN Reason: Protocol Last Admin: 11/10/17 22:00 Dose: 0.5 mg Zinc Sulfate (Zinc Sulfate 220 Mg Cap) 220 mg PO DAILY [facility] Last Admin: 11/10/17 09:33 Dose: 220 mg - Labs Labs: 11/11/17 06:30 11/11/17 06:30 - Constitutional Appears: Well, Non-toxic, No Acute Distress - Head Exam Head Exam: ATRAUMATIC, NORMAL INSPECTION, NORMOCEPHALIC - Eye Exam Eye Exam: Normal appearance Pupil Exam: NORMAL ACCOMODATION - ENT Exam ENT Exam: Mucous Membranes Moist - Neck Exam Neck Exam: Full ROM - Respiratory Exam Respiratory Exam: Clear to Ausculation Bilateral, NORMAL BREATHING PATTERN - Cardiovascular Exam Cardiovascular Exam: REGULAR RHYTHM (at 97 beats per minute) - GI/Abdominal Exam GI & Abdominal Exam: Soft, Normal Bowel Sounds. absent: Tenderness - Extremities Exam Extremities Exam: Full ROM. absent: Tenderness Additional comments: Lower extremity exam: Left dorsalis pedis artery unpalpable, but audible via doppler ultrasound. Right dorsalis pedis artery palpable Capillary refill < 2 sec in lower extremities bilaterally Left foot with quarter-sized ulcer on plantar aspect inferior to big toe: base of ulcer with granular tissue and hyperkeratotic borders. bone not visualized warm to touch mild hyperpigmentation around the big toe drainage with mild serosanguinous fluid noted Sensation in tach in bilateral lower extremities - Back Exam Back Exam: NORMAL INSPECTION - Psychiatric Exam Psychiatric exam: Flat Affect, Normal Mood - Skin Skin Exam: Dry, Intact, Normal Color, Warm Assessment and Plan - Assessment and Plan (Free Text) Assessment: Mr. Herman is a 51 year old male with past medical history of hypertension, hyperlipidemia, GERD, psychotic disorder, bilateral knee osteoarthritis who was admitted for evaluation and treated of a non-healing diabetic ulcer. Left foot diabetic ulcer with underlying osteomyelitis PICC placement needed for long-term IV antibiotics Treat with 4-6 weeks of Zosyn, as per Dr. Murry Weekly CBC, SMA-18, sed rate, C-reactive protien, as per Dr. 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 increased from previous echo Continue Lopressor and Lipitor Continue IVF History of hypertension Continue lopressor Continue hydralazine Nausea/Vomiting, resolved Continue zofran JAILENE, resolved Likely secondary to infection and dehydration Patient seen with and case reviewed in detail with Attending Physician, Dr. Julio Cardenas D.O. PGY1 -- Boat Rental Clerk <Fara Kim R - Last Filed: 11/12/17 11:36> Objective - Vital Signs/Intake and Output Vital Signs (last 24 hours): Temp Pulse Resp BP Pulse Ox 98.1 F 84 18 160/86 H 98 11/12/17 08:36 11/12/17 10:28 11/12/17 08:36 11/12/17 10:28 11/12/17 08:36 Intake and Output: 11/12/17 11/12/17 06:59 18:59 Intake Total 660 Output Total 0 Balance 660 - Medications Medications: Current Medications Acetaminophen (Tylenol 325mg Tab) 650 mg PO Q6H PRN PRN Reason: Fever >100.4 F Atorvastatin Calcium (Lipitor) 20 mg PO DAILY [facility] Last Admin: 11/12/17 10:28 Dose: 20 mg Benztropine Mesylate (Cogentin) 0.5 mg PO BID [facility] Last Admin: 11/12/17 10:28 Dose: 0.5 mg Collagenase (Santyl) 0 gm TOP DAILY [facility] Last Admin: 11/12/17 10:29 Dose: 1 applic Heparin Sodium (Porcine) (Heparin) 5,000 units SC Q12 [facility] PRN Reason: Protocol Last Admin: 11/12/17 10:28 Dose: Not Given Hydralazine HCl (Apresoline) 25 mg PO Q8 [facility] Last Admin: 11/12/17 06:06 Dose: 25 mg Hydroxyzine HCl (Atarax) 25 mg PO HS [facility] Last Admin: 11/11/17 21:37 Dose: 25 mg Piperacillin Sod/Tazobactam Sod (Zosyn 2.25 Gm In 0.9% 100 Ml) 2.25 gm in 100 mls @ 100 mls/hr IVPB Q6 [facility] PRN Reason: Protocol Stop: 12/08/17 00:01 Last Admin: 11/12/17 06:08 Dose: 100 mls/hr Insulin Human Lispro (Humalog Med) 0 units SC ACHS [facility] PRN Reason: Protocol Last Admin: 11/12/17 10:28 Dose: 3 units Metoprolol Tartrate (Lopressor) 25 mg PO BID [facility] Last Admin: 11/12/17 10:28 Dose: 25 mg Multivitamins (Thera Tab) 1 tab PO 0800 [facility] Last Admin: 11/12/17 10:28 Dose: 1 tab Ondansetron HCl (Zofran Inj) 4 mg IVP Q4H PRN PRN Reason: Nausea/Vomiting Last Admin: 11/07/17 01:41 Dose: 4 mg Pantoprazole Sodium (Protonix Ec Tab) 40 mg PO 0600 [facility] Last Admin: 11/12/17 06:06 Dose: 40 mg Risperidone (Risperdal Tab) 0.5 mg PO HS [facility] PRN Reason: Protocol Last Admin: 11/11/17 21:37 Dose: 0.5 mg Zinc Sulfate (Zinc Sulfate 220 Mg Cap) 220 mg PO DAILY [facility] Last Admin: 11/12/17 10:28 Dose: 220 mg - Labs Labs: 11/12/17 07:20 11/12/17 07:20 Attending/Attestation - Attestation I have personally seen and examined this patient.: Yes I have fully participated in the care of the patient.: Yes I have reviewed all pertinent clinical information, including history, physical exam and plan: Yes Notes (Text): Patient seen and examined by me at 9:50AM with resident. Case including physical assessment and plan discussed with resident. Agree with above with following additions and changes. Patient states he feels better. Pain in his left foot continues to improve. Denies any chest pain or shortness of breath. No nausea or vomiting. No abdominal pain. No headaches or dizziness. No fevers or chills. No dysuria. No diarrhea or constipation. Physical exam: Gen: Patient is awake and alert lying in bed in no acute distress HEENT: Normocephalic atraumatic, extraocular muscles intact, pupils equal reactive, oropharynx is pink and moist, no pharyngeal erythema or exudate appreciated, neck is supple. Cardiovascular: Normal rhythm, normal S1-S2, no murmurs rubs or gallops appreciated Pulmonary: Normal respiratory effort. No rhonchi, rales, or wheezing appreciated Gastrointestinal: Soft, nontender, nondistended, positive bowel sounds all 4 quadrants, no guarding Musculoskeletal: Moves all extremities, no calf tenderness. Left foot dressing, clean, dry, and intact., Ulcer healing, granulation tissue noted, ulcer quarter sized, some sersanguinous discharge. Vascular: Decreased pulses left foot, pulses appreciated with Doppler Central nervous system: AAO 3 Dermatologic: Skin warm and dry Assessment and plan: Patient is a 51-year-old male who presented with left foot cellulitis and left dorsal diabetic foot ulcer. ID consulted, recommendations appreciated. Patient likely with osteomyelitis. Per ID, will need 4-6 weeks of Zosyn. Antibiotics changed to Zosyn, day#3. Patient will likely need PICC line. Podiatry following, recommendations appreciated. Wound cultures positive for Enterococcus faecalis and Citrobacter Diversus. MRI of the foot is unable to rule out osteomyelitis. JAILENE resolved. Likely has underlying CKD. Anemia is chronic. H&H stable. History of chronic systolic CHF. However, 2-D echo per sheet manufacturing supervisor from 11/08/2017 shows an ejection fraction of 55%, left ventricle normal size, mild concentric left ventricular hypertrophy, and left ventricular function is normal. Continue risperidone, Atarax, and Cogentin for history of psychotic disorder. Continue insulin sliding scale and diabetic diet for diabetes. Continue hydralazine and metoprolol for hypertension. Case was discussed in detail with the patient and medical claims analyst regarding current diagnosis and treatment plan
[2017-11-11] MEDS: Insulin Lispro (humaLOG) MEDIUM Coverage SC SCH ×4 (08:18→22:20)
[2017-11-11] MEDS: Multivitamin Therapeutic Tab PO SCH (08:18)
[2017-11-11] MEDS: Collagenase 250 Units/gm Ointment(30 gm) TOP SCH (09:09)
--- NOTE | 2017-11-11 11:28 | CP.PCM.PN ---
Subjective - Date & Time of Evaluation Date of Evaluation: 11/11/17 Time of Evaluation: 11:24 - Subjective Subjective: Podiatry progress note for Dr. Alfaro 51 y/o male seen at bedside this morning regarding left foot diabetic ulcer with surrounding fluctuance. Pt resting comfortaly in bed with dressings C/D/I and forefoot offloading shoe on the floor bedside. Denies pain to left foot and lower extremity and any acute events overnight. Denies N/V/F/C/SOB/CP/pain to posterior calf. Denies any other pedal complaints at this time. Objective - Vital Signs/Intake and Output Vital Signs (last 24 hours): Temp Pulse Resp BP Pulse Ox 98.2 F 97 H 18 149/74 94 L 11/11/17 06:00 11/11/17 06:00 11/11/17 06:00 11/11/17 06:00 11/11/17 06:00 Intake and Output: 11/11/17 11/11/17 06:59 18:59 Intake Total 420 Output Total 0 Balance 420 - Medications Medications: Current Medications Acetaminophen (Tylenol 325mg Tab) 650 mg PO Q6H PRN PRN Reason: Fever >100.4 F Atorvastatin Calcium (Lipitor) 20 mg PO DAILY [facility] Last Admin: 11/11/17 09:08 Dose: 20 mg Benztropine Mesylate (Cogentin) 0.5 mg PO BID [facility] Last Admin: 11/11/17 09:08 Dose: 0.5 mg Collagenase (Santyl) 0 gm TOP DAILY [facility] Last Admin: 11/11/17 09:09 Dose: Not Given Heparin Sodium (Porcine) (Heparin) 5,000 units SC Q12 [facility] PRN Reason: Protocol Last Admin: 11/11/17 09:08 Dose: 5,000 units Hydralazine HCl (Apresoline) 25 mg PO Q8 [facility] Last Admin: 11/11/17 06:00 Dose: 25 mg Hydroxyzine HCl (Atarax) 25 mg PO HS [facility] Last Admin: 11/10/17 22:00 Dose: 25 mg Piperacillin Sod/Tazobactam Sod (Zosyn 2.25 Gm In 0.9% 100 Ml) 2.25 gm in 100 mls @ 100 mls/hr IVPB Q6 [facility] PRN Reason: Protocol Stop: 12/08/17 00:01 Last Admin: 11/11/17 06:02 Dose: 100 mls/hr Insulin Human Lispro (Humalog Med) 0 units SC ACHS [facility] PRN Reason: Protocol Last Admin: 11/11/17 08:18 Dose: 3 units Metoprolol Tartrate (Lopressor) 25 mg PO BID [facility] Last Admin: 11/11/17 09:08 Dose: 25 mg Multivitamins (Thera Tab) 1 tab PO 0800 [facility] Last Admin: 11/11/17 08:18 Dose: 1 tab Ondansetron HCl (Zofran Inj) 4 mg IVP Q4H PRN PRN Reason: Nausea/Vomiting Last Admin: 11/07/17 01:41 Dose: 4 mg Pantoprazole Sodium (Protonix Ec Tab) 40 mg PO 0600 [facility] Last Admin: 11/11/17 06:01 Dose: 40 mg Risperidone (Risperdal Tab) 0.5 mg PO HS [facility] PRN Reason: Protocol Last Admin: 11/10/17 22:00 Dose: 0.5 mg Zinc Sulfate (Zinc Sulfate 220 Mg Cap) 220 mg PO DAILY [facility] Last Admin: 11/11/17 09:08 Dose: 220 mg - Labs Labs: 11/11/17 06:30 11/11/17 06:30 - Constitutional Appears: Well, Non-toxic, No Acute Distress - Head Exam Head Exam: ATRAUMATIC, NORMOCEPHALIC - Extremities Exam Additional comments: Left lower extremity focused exam Vas - DP/PT pulses nonpalpable, CFT <3 secs x5, pedal hair noted. Temperature gradient warm to warm. Non-pitting edema noted to dorsomedial forefoot Derm - Sub met 1 ulceration with 70% fibronecrotic wound base and 30% pink and granular and hyperkeratotic wound borders, measuring approx 3.2 cm x 2.0 cm x 0.3 cm. Mild malodor and pedrito wound erythema noted. Mild tunneling is noted at distal aspect of ulcer. (-) probe to bone. Minimal fluctuance is noted to distal and medial borders of ulceration. No active drainage or purulence elicited with application of pressure Neuro - protective sensation grossly intact. Ortho - No tenderness to palpation to the ulceration site - Neurological Exam Neurological Exam: Alert, Awake, Oriented x3 - Psychiatric Exam Psychiatric exam: Normal Affect, Normal Mood Assessment and Plan - Assessment and Plan (Free Text) Assessment: 51 y/o male with left foot diabetic ulceration with possible underyling abscess Plan: Pt seen and evaluated at bedside Discussed with attending Dr. Srinivasan Alfaro Pt remains afebrile, absent leukocytosis (WBC 9.7) X-rays (-) for any acute osseous abnormalities, no erosive changes suggestive of OM Foot MRI - reactive marrow edema which may represent early acute osteomyelitis ( cannot be excluded) Wound cleaned with saline and dressed with Santyl and DSD Pt scheduled for wound debridement on 11/15 Continue offloading and ambulation with forefoot offloading shoe ID rec 4-6 weeks IV abx - began zosyn IV 2.25 g IV Will continue to follow while in house
--- NOTE | 2017-11-11 13:46 | PN ---
DATE: 11/11/2017 SUBJECTIVE: The patient is in bed, seen early this morning in room 370, bed 2. He is tolerating the antibiotics. He is awake and alert. PHYSICAL EXAMINATION: VITAL SIGNS: Temperature is 98, blood pressure is 140/70, respiratory rate 18. HEENT: Unremarkable. NECK: Supple. LUNGS: Have decreased breath sounds. HEART: Normal S1, S2. ABDOMEN: Soft, nontender. LABORATORY DATA: Reveals white count is 9.7, hemoglobin of 10. The patient's sed rate is 100 and chemistries reveal BUN of 21, creatinine is 1.7. Urinalysis is noted. The patient's C-reactive protein is elevated greater than 15. Microbiology reveals Citrobacter diversus and Enterococcus faecalis. The Citrobacter diversus is a relatively sensitive organism as is the Enterococcus faecalis, which is sensitive to ampicillin. progress note from this morning is reviewed. ASSESSMENT AND PLAN: This is a 51-year-old male with left foot cellulitis and osteomyelitis with Citrobacter and Enterococcus in a patient with severe sepsis secondary to left foot cellulitis and osteomyelitis with Citrobacter and Enterococcus, will need 4 to 6 weeks' of treatment. Currently, on Zosyn with CBC, SMA-18, sed rate, C-reactive protein once weekly. The Zosyn, which is piperacillin and tazobactam, may need to be readjusted dosing if the renal function improves and we will follow with you. The patient has been explained of the duration of his antibiotic therapy and the involvement of the bone. We will follow closely. Nabil Mrury MD
[2017-11-12] MEDS: Piperacillin/Tazobact 2.25gm 2.25 GM/100 ML BAG IVPB SCH ×4 (00:35→17:15)
[2017-11-12] MEDS: Pantoprazole 40 mg EC Tab PO SCH (06:06)
[2017-11-12 07:27] LABS: BASO # 0.03 K/mm3 (0.0-2.0); BASO % 0.3 % (0.0-3.0); EOS # 0.6 (0.0-0.7); EOS % 5.9 % (1.5-5.0); GRAN # 5.85 (1.4-6.5); GRAN % 60.1 % (50.0-68.0); HEMOGLOBIN 10.6 g/dL (14.0-18.0); LYMPH # 2.7 (1.2-3.4); LYMPH % 27.8 % (22.0-35.0); MEAN CELL VOLUME 83.6 fl (80.0-105.0); MEAN CORPUSCULAR HEMOGLOBIN 28.1 pg (25.0-35.0); MEAN CORPUSCULAR HGB CONC 33.7 g/dl (31.0-37.0); MEAN PLATELET VOLUME 8.2 fl (7.0-11.0); MONO # 0.6 (0.1-0.6); MONO % 5.9 % (1.0-6.0); RBC 3.77 10^6/uL (3.5-6.1); RED CELL DISTRIBUTION WIDTH 11.8 % (11.5-14.5); WHITE BLOOD COUNT 9.7 10^3/ul (4.5-11.0)
--- NOTE | 2017-11-12 07:34 | CP.PCM.PN ---
Subjective - Date & Time of Evaluation Date of Evaluation: 11/12/17 Time of Evaluation: 07:33 - Subjective Subjective: 51 y/o male seen at bedside this morning with attending Dr. Alfaro for left foot sub met 1 diabetic ulcer with possible underlying abscess. Pt resting in bed at time of visit. Admits that he has occasionally been walking without his forefoot offloading shoe. Denies any F/C/N/V/CP/SOB at present. Denies any pain to the left foot. Is agreeable to surgical debridement of his left foot ulcer if deemed necessary. Objective - Vital Signs/Intake and Output Vital Signs (last 24 hours): Temp Pulse Resp BP Pulse Ox 98.2 F 88 19 172/88 H 95 11/11/17 17:15 11/12/17 06:06 11/11/17 17:15 11/12/17 06:06 11/11/17 17:15 Intake and Output: 11/12/17 11/12/17 06:59 18:59 Intake Total 660 Output Total 0 Balance 660 - Medications Medications: Current Medications Acetaminophen (Tylenol 325mg Tab) 650 mg PO Q6H PRN PRN Reason: Fever >100.4 F Atorvastatin Calcium (Lipitor) 20 mg PO DAILY [facility] Last Admin: 11/11/17 09:08 Dose: 20 mg Benztropine Mesylate (Cogentin) 0.5 mg PO BID [facility] Last Admin: 11/11/17 17:09 Dose: 0.5 mg Collagenase (Santyl) 0 gm TOP DAILY [facility] Last Admin: 11/11/17 09:09 Dose: Not Given Heparin Sodium (Porcine) (Heparin) 5,000 units SC Q12 [facility] PRN Reason: Protocol Last Admin: 11/11/17 21:37 Dose: 5,000 units Hydralazine HCl (Apresoline) 25 mg PO Q8 [facility] Last Admin: 11/12/17 06:06 Dose: 25 mg Hydroxyzine HCl (Atarax) 25 mg PO HS [facility] Last Admin: 11/11/17 21:37 Dose: 25 mg Piperacillin Sod/Tazobactam Sod (Zosyn 2.25 Gm In 0.9% 100 Ml) 2.25 gm in 100 mls @ 100 mls/hr IVPB Q6 [facility] PRN Reason: Protocol Stop: 12/08/17 00:01 Last Admin: 11/12/17 06:08 Dose: 100 mls/hr Insulin Human Lispro (Humalog Med) 0 units SC ACHS [facility] PRN Reason: Protocol Last Admin: 11/11/17 22:20 Dose: Not Given Metoprolol Tartrate (Lopressor) 25 mg PO BID [facility] Last Admin: 11/11/17 17:09 Dose: 25 mg Multivitamins (Thera Tab) 1 tab PO 0800 [facility] Last Admin: 11/11/17 08:18 Dose: 1 tab Ondansetron HCl (Zofran Inj) 4 mg IVP Q4H PRN PRN Reason: Nausea/Vomiting Last Admin: 11/07/17 01:41 Dose: 4 mg Pantoprazole Sodium (Protonix Ec Tab) 40 mg PO 0600 [facility] Last Admin: 11/12/17 06:06 Dose: 40 mg Risperidone (Risperdal Tab) 0.5 mg PO HS [facility] PRN Reason: Protocol Last Admin: 11/11/17 21:37 Dose: 0.5 mg Zinc Sulfate (Zinc Sulfate 220 Mg Cap) 220 mg PO DAILY [facility] Last Admin: 11/11/17 09:08 Dose: 220 mg - Labs Labs: 11/11/17 06:30 11/11/17 06:30 - Constitutional Appears: Well, Non-toxic, No Acute Distress - Extremities Exam Additional comments: Left lower extremity focused examination: Vasc - DP/PT pulses nonpalpable, CFT <3 secs x5, pedal hair noted. Temperature gradient warm to warm. Non-pitting edema noted to dorsomedial forefoot Derm - Sub met 1 ulceration with 70% fibronecrotic wound base and 30% pink and granular and hyperkeratotic wound borders, measuring approx 3.2 cm x 2.0 cm x 0.3 cm. Mild malodor and pedrito wound erythema noted. Mild tunneling is noted at distal aspect of ulcer with hypopigmentation of overlying skin noted. (-) probe to bone. Minimal fluctuance is noted to distal and medial borders of ulceration. No active drainage or purulence elicited with application of pressure Neuro - protective sensation grossly intact. Ortho - No tenderness to palpation to the ulceration site or to wound periphery - Neurological Exam Neurological Exam: Alert, Awake, Oriented x3 - Psychiatric Exam Psychiatric exam: Normal Affect, Normal Mood Assessment and Plan - Assessment and Plan (Free Text) Assessment: 51 y/o male with left foot diabetic ulceration with possible underyling abscess Plan: Pt seen and evaluated at bedside with attending Dr. Srinivasan Alfaro Pt remains afebrile, absent leukocytosis (WBC 9.7) X-rays (-) for any acute osseous abnormalities, no erosive changes suggestive of OM Foot MRI - reactive marrow edema which may represent early acute osteomyelitis ( cannot be excluded) Per ID, pt to receive 4-6 weeks of IV abx - started on Zosyn Wound cleaned with saline and dressed with Santyl and DSD Emphasized importance of wound offloading with forefoot offloading shoe at all times weightbearing Pt scheduled for wound debridement on 11/15 - will monitor clinically for any changes, but surgery may not be necessary at this time Will continue to follow pt daily
[2017-11-12 07:43] LABS: ALBUMIN 3.1 g/dL (3.0-4.8); CALCIUM 8.4 mg/dL (8.4-10.5)
[2017-11-12 08:37] VITALS: RESP 18; TEMP 98.1; O2SAT 98
--- NOTE | 2017-11-12 09:11 | CP.PCM.PN ---
Objective - Vital Signs/Intake and Output Vital Signs (last 24 hours): Temp Pulse Resp BP Pulse Ox 98.1 F 84 18 155/85 H 98 11/12/17 08:36 11/12/17 08:36 11/12/17 08:36 11/12/17 08:36 11/12/17 08:36 Intake and Output: 11/12/17 11/12/17 06:59 18:59 Intake Total 660 Output Total 0 Balance 660 - Medications Medications: Current Medications Acetaminophen (Tylenol 325mg Tab) 650 mg PO Q6H PRN PRN Reason: Fever >100.4 F Atorvastatin Calcium (Lipitor) 20 mg PO DAILY [facility] Last Admin: 11/11/17 09:08 Dose: 20 mg Benztropine Mesylate (Cogentin) 0.5 mg PO BID [facility] Last Admin: 11/11/17 17:09 Dose: 0.5 mg Collagenase (Santyl) 0 gm TOP DAILY [facility] Last Admin: 11/11/17 09:09 Dose: Not Given Heparin Sodium (Porcine) (Heparin) 5,000 units SC Q12 [facility] PRN Reason: Protocol Last Admin: 11/11/17 21:37 Dose: 5,000 units Hydralazine HCl (Apresoline) 25 mg PO Q8 [facility] Last Admin: 11/12/17 06:06 Dose: 25 mg Hydroxyzine HCl (Atarax) 25 mg PO HS [facility] Last Admin: 11/11/17 21:37 Dose: 25 mg Piperacillin Sod/Tazobactam Sod (Zosyn 2.25 Gm In 0.9% 100 Ml) 2.25 gm in 100 mls @ 100 mls/hr IVPB Q6 [facility] PRN Reason: Protocol Stop: 12/08/17 00:01 Last Admin: 11/12/17 06:08 Dose: 100 mls/hr Insulin Human Lispro (Humalog Med) 0 units SC ACHS [facility] PRN Reason: Protocol Last Admin: 11/11/17 22:20 Dose: Not Given Metoprolol Tartrate (Lopressor) 25 mg PO BID [facility] Last Admin: 11/11/17 17:09 Dose: 25 mg Multivitamins (Thera Tab) 1 tab PO 0800 [facility] Last Admin: 11/11/17 08:18 Dose: 1 tab Ondansetron HCl (Zofran Inj) 4 mg IVP Q4H PRN PRN Reason: Nausea/Vomiting Last Admin: 11/07/17 01:41 Dose: 4 mg Pantoprazole Sodium (Protonix Ec Tab) 40 mg PO 0600 [facility] Last Admin: 11/12/17 06:06 Dose: 40 mg Risperidone (Risperdal Tab) 0.5 mg PO HS [facility] PRN Reason: Protocol Last Admin: 11/11/17 21:37 Dose: 0.5 mg Zinc Sulfate (Zinc Sulfate 220 Mg Cap) 220 mg PO DAILY [facility] Last Admin: 11/11/17 09:08 Dose: 220 mg - Labs Labs: 11/12/17 07:20 11/12/17 07:20
--- NOTE | 2017-11-12 09:33 | US ---
PROCEDURE: Lower extremity MALINI exam HISTORY: Peripheral vascular disease with pain and ulceration. Diabetes PHYSICIAN(S): Srinivasan Rodríguez MD. FINDINGS: The exam is limited by an noncompressible vessels at multiple levels. The resting MALINI's are normal: right, 1.35and left, 1.34. The brachial systolic pressures are symmetric. The high thigh pressures and waveforms are relatively normal. The calf PVR waveforms augment normally. The calf PVR waveforms are normal and symmetric The ankle and metatarsal waveforms are relatively normal and symmetric. No significant pressure gradients are noted across the lower legs. IMPRESSION: 1. Relatively normal MALINI and PVR examination at rest.
[2017-11-12] MEDS: Multivitamin Therapeutic Tab PO SCH (10:28)
[2017-11-12] MEDS: Insulin Lispro (humaLOG) MEDIUM Coverage SC SCH ×2 (10:28→12:39)
[2017-11-12] MEDS: Collagenase 250 Units/gm Ointment(30 gm) TOP SCH (10:29)
--- NOTE | 2017-11-12 13:31 | CP.PCM.DIS ---
<Mahesh Livingston - Last Filed: 11/13/17 05:59> Provider - Provider Date of Admission: 11/06/17 21:19 Attending physician: Filippo Mariano MD Primary care physician: Raeann Moyer MD Time Spent in preparation of Discharge (in minutes): 45 Hospital Course - Lab Results Lab Results: Micro Results 11/07/17 11:55 Other: Please Indicate Gram Stain - Final 11/07/17 11:55 Other: Please Indicate Wound Culture - Final Citrobacter Diversus Enterococcus Faecalis Most Recent Lab Values WBC 9.7 10^3/ul (4.5-11.0) 11/12/17 07:20 RBC 3.77 10^6/uL (3.5-6.1) 11/12/17 07:20 Hgb 10.6 g/dL (14.0-18.0) L 11/12/17 07:20 Hct 31.5 % (42.0-52.0) L 11/12/17 07:20 MCV 83.6 fl (80.0-105.0) 11/12/17 07:20 MCH 28.1 pg (25.0-35.0) 11/12/17 07:20 MCHC 33.7 g/dl (31.0-37.0) 11/12/17 07:20 RDW 11.8 % (11.5-14.5) 11/12/17 07:20 Plt Count 348 10^3/uL (120.0-450.0) 11/12/17 07:20 MPV 8.2 fl (7.0-11.0) 11/12/17 07:20 Gran % 60.1 % (50.0-68.0) 11/12/17 07:20 Lymph % (Auto) 27.8 % (22.0-35.0) 11/12/17 07:20 Atkinson % (Auto) 5.9 % (1.0-6.0) 11/12/17 07:20 Eos % (Auto) 5.9 % (1.5-5.0) H 11/12/17 07:20 Baso % (Auto) 0.3 % (0.0-3.0) 11/12/17 07:20 Gran # 5.85 (1.4-6.5) 11/12/17 07:20 Lymph # (Auto) 2.7 (1.2-3.4) 11/12/17 07:20 Atkinson # (Auto) 0.6 (0.1-0.6) 11/12/17 07:20 Eos # (Auto) 0.6 (0.0-0.7) 11/12/17 07:20 Baso # (Auto) 0.03 K/mm3 (0.0-2.0) 11/12/17 07:20 ESR 100 mm/hr (0.0-15.0) H 11/07/17 06:00 Sodium 139 mmol/L (132-148) 11/12/17 07:20 Potassium 4.3 mmol/L (3.6-5.0) 11/12/17 07:20 Chloride 106 mmol/L (98-107) 11/12/17 07:20 Carbon Dioxide 24 mmol/L (21-33) 11/12/17 07:20 Anion Gap 13 (10-20) 11/12/17 07:20 BUN 23 mg/dL (7-21) H 11/12/17 07:20 Creatinine 1.7 mg/dl (0.8-1.5) H 11/12/17 07:20 Est GFR ( Amer) 52 11/12/17 07:20 Est GFR (Non-Af Amer) 43 11/12/17 07:20 POC Glucose (mg/dL) 209 mg/dL (65-110) H 11/12/17 07:09 Random Glucose 217 mg/dL (70-110) H 11/12/17 07:20 Hemoglobin A1c 8.0 % (4.2-6.5) H 11/07/17 06:00 Calcium 8.4 mg/dL (8.4-10.5) 11/12/17 07:20 Iron 24 ug/dL (45-180) L 11/07/17 06:00 TIBC 252 ug/dL (261-462) L 11/07/17 06:00 % Saturation 10 % (20-55) L 11/07/17 06:00 Transferrin 173.26 mg/dL (206-381) L 11/07/17 06:00 Ferritin 194.0 ng/mL 11/07/17 06:00 Total Bilirubin 0.1 mg/dL (0.2-1.3) L 11/12/17 07:20 AST 33 U/L (17-59) 11/12/17 07:20 ALT 28 U/L (7-56) 11/12/17 07:20 Alkaline Phosphatase 57 U/L (38-126) 11/12/17 07:20 Troponin I < 0.01 ng/mL D 11/06/17 20:34 C-React Prot High Sens > 15.00 mg/L (1.00-3.00) H 11/07/17 06:00 Total Protein 6.1 g/dL (5.8-8.3) 11/12/17 07:20 Albumin 3.1 g/dL (3.0-4.8) 11/12/17 07:20 Globulin 3.0 gm/dL 11/12/17 07:20 Albumin/Globulin Ratio 1.0 (1.1-1.8) L 11/12/17 07:20 Urine Color Yellow (YELLOW) 11/07/17 17:30 Urine Appearance Clear (CLEAR) 11/07/17 17:30 Urine pH 6.5 (4.7-8.0) 11/07/17 17:30 Ur Specific [place] 1.015 (1.005-1.035) 11/07/17 17:30 Urine Protein 100 mg/dL (<30 mg/dL) H 11/07/17 17:30 Urine Glucose (UA) 100 mg/dL (NEGATIVE) H 11/07/17 17:30 Urine Ketones Negative mg/dL (NEGATIVE) 11/07/17 17:30 Urine Blood Trace-intact (NEGATIVE) H 11/07/17 17:30 Urine Nitrate Negative (NEGATIVE) 11/07/17 17:30 Urine Bilirubin Negative (NEGATIVE) 11/07/17 17:30 Urine Urobilinogen 0.2 E.U./dL (<1 E.U./dL) 11/07/17 17:30 Ur Leukocyte Esterase Negative Bishop/uL (NEGATIVE) 11/07/17 17:30 Urine RBC 1 - 3 /hpf (0-2) 11/07/17 17:30 Urine WBC 0 - 2 /hpf (0-6) 11/07/17 17:30 Ur Epithelial Cells 1 - 3 /hpf (0-5) 11/07/17 17:30 Hyaline Casts 0 - 2 /hpf 11/07/17 17:30 Ur Random Creatinine 56 mg/dL 11/07/17 17:30 - Hospital Course Hospital Course: Mr. Herman is a 51 year old male patient with a history of hypertension, hyperlipidemia, GERD, psychotic disorder, and knee osteoarthritis who was admitted and treated for a diabetic ulcer on the left foot and left foot cellulitis. During the course of his stay he underwent foot xray, lower extremity ultrasound, foot MRI, echocardiogram. Foot xray showed soft tissue swelling without acute articular or osseous abnormality. Lower extremity arterial ultrasound showed relatively normal MALINI and PVR examination, lower extremity vein ultrasound showed no evidence of DVT of the lower left extremity. Foot MRI showed mild patchy reactive bone marrow edema without gross decreased T1 signal where early acute and or developing acute osteomyelitic changes cannot be excluded. Echocardiogram showed normal left ventricle size and function with ejection fraction of 55%. Podiatry (Dr. Alfaro) and Infectious disease (Dr. Murry) were consulted in the management and treatment of the patient. Podiatry did a wound debriedment on the patient and have been cleaning the wound with saline and dressed with Santyl and DSD. Podiatry also emphasize to the patient the importance of wound offloading with forefoot offloading shoes at all times. Infectious disease recommends 4-6 weeks treatment of IV Zosyn. The patient got a PICC line placed for IV antibiotics treatment. The patient is now medically optimized to be transferred to a snf facility. The patient was discharged with IV zosyn in addition to his home medications. He was also instructed to follow up with his primary care doctor 5- 7 days upon discharge from SNF. Patient was instructed to return to the ED if symptoms return. Discharge Exam - Head Exam Head Exam: ATRAUMATIC, NORMAL INSPECTION - Eye Exam Eye Exam: Normal appearance - ENT Exam ENT Exam: Mucous Membranes Moist - Respiratory Exam Respiratory Exam: Clear to PA & Lateral. absent: Rales, Rhonchi, Wheezes - Cardiovascular Exam Cardiovascular Exam: REGULAR RHYTHM, +S1, +S2. absent: Gallop, Rubs, Systolic Murmur - GI/Abdominal Exam GI & Abdominal Exam: Normal Bowel Sounds, Soft. absent: Tenderness - Extremities Exam Additional comments: Left foot dressing clean, dry, and intact. - Neurological Exam Neurological exam: Alert, Oriented x3 - Psychiatric Exam Psychiatric exam: Normal Affect, Normal Mood - Skin Skin Exam: Dry, Normal Color, Warm Discharge Plan - Discharge Medications Prescriptions: Aspirin 81 mg PO DAILY 30 Days tab.chew Piperacill/Tazo 2.25gm in Dex [Zosyn 2.25 Gm IV Premix] 2.25 gm IV Q6 28 Days bag - Follow Up Plan Condition: FAIR Disposition: TRANSF TO SNF Instructions: Diabetes and Infections, Diabetes and Diet Additional Instructions: 1. Patient to be discharged to [facility] for IV antibiotic treatment for a total of 4- 6 weeks via PICC line. 2. Patient to continue with home medications. 3. Patient will need weekly labs: CMP, ESR, and CRP. 4. Patient to follow up with PMD Dr. Corona Moyer upon discharge from nursing facility. 5. Patient will also need wound care (clean with saline and dressed with santyl and dsd as per podiatry). 6. The importance of using the offloading boot while ambulating is emphasized. 7. Patient to follow up with podiatry upon discharge from nursing facility. 8) Patient will also need repeat bmp in 2-3 weeks to monitor renal function Referrals: Raeann Moyer MD [Primary Care Provider] - Dmitry Alfaro DPM [[facility]] - <Filippo Mariano - Last Filed: 11/13/17 14:20> Provider - Provider Date of Admission: 11/06/17 21:19 Attending physician: Filippo Mariano MD Primary care physician: Raeann Moyer MD Hospital Course - Lab Results Lab Results: Micro Results 11/07/17 11:55 Other: Please Indicate Gram Stain - Final 11/07/17 11:55 Other: Please Indicate Wound Culture - Final Citrobacter Diversus Enterococcus Faecalis Most Recent Lab Values WBC 9.7 10^3/ul (4.5-11.0) 11/12/17 07:20 RBC 3.77 10^6/uL (3.5-6.1) 11/12/17 07:20 Hgb 10.6 g/dL (14.0-18.0) L 11/12/17 07:20 Hct 31.5 % (42.0-52.0) L 11/12/17 07:20 MCV 83.6 fl (80.0-105.0) 11/12/17 07:20 MCH 28.1 pg (25.0-35.0) 11/12/17 07:20 MCHC 33.7 g/dl (31.0-37.0) 11/12/17 07:20 RDW 11.8 % (11.5-14.5) 11/12/17 07:20 Plt Count 348 10^3/uL (120.0-450.0) 11/12/17 07:20 MPV 8.2 fl (7.0-11.0) 11/12/17 07:20 Gran % 60.1 % (50.0-68.0) 11/12/17 07:20 Lymph % (Auto) 27.8 % (22.0-35.0) 11/12/17 07:20 Atkinson % (Auto) 5.9 % (1.0-6.0) 11/12/17 07:20 Eos % (Auto) 5.9 % (1.5-5.0) H 11/12/17 07:20 Baso % (Auto) 0.3 % (0.0-3.0) 11/12/17 07:20 Gran # 5.85 (1.4-6.5) 11/12/17 07:20 Lymph # (Auto) 2.7 (1.2-3.4) 11/12/17 07:20 Atkinson # (Auto) 0.6 (0.1-0.6) 11/12/17 07:20 Eos # (Auto) 0.6 (0.0-0.7) 11/12/17 07:20 Baso # (Auto) 0.03 K/mm3 (0.0-2.0) 11/12/17 07:20 ESR 100 mm/hr (0.0-15.0) H 11/07/17 06:00 Sodium 139 mmol/L (132-148) 11/12/17 07:20 Potassium 4.3 mmol/L (3.6-5.0) 11/12/17 07:20 Chloride 106 mmol/L (98-107) 11/12/17 07:20 Carbon Dioxide 24 mmol/L (21-33) 11/12/17 07:20 Anion Gap 13 (10-20) 11/12/17 07:20 BUN 23 mg/dL (7-21) H 11/12/17 07:20 Creatinine 1.7 mg/dl (0.8-1.5) H 11/12/17 07:20 Est GFR ( Amer) 52 11/12/17 07:20 Est GFR (Non-Af Amer) 43 11/12/17 07:20 POC Glucose (mg/dL) 154 mg/dL (65-110) H 11/12/17 16:21 Random Glucose 217 mg/dL (70-110) H 11/12/17 07:20 Hemoglobin A1c 8.0 % (4.2-6.5) H 11/07/17 06:00 Calcium 8.4 mg/dL (8.4-10.5) 11/12/17 07:20 Iron 24 ug/dL (45-180) L 11/07/17 06:00 TIBC 252 ug/dL (261-462) L 11/07/17 06:00 % Saturation 10 % (20-55) L 11/07/17 06:00 Transferrin 173.26 mg/dL (206-381) L 11/07/17 06:00 Ferritin 194.0 ng/mL 11/07/17 06:00 Total Bilirubin 0.1 mg/dL (0.2-1.3) L 11/12/17 07:20 AST 33 U/L (17-59) 11/12/17 07:20 ALT 28 U/L (7-56) 11/12/17 07:20 Alkaline Phosphatase 57 U/L (38-126) 11/12/17 07:20 Troponin I < 0.01 ng/mL D 11/06/17 20:34 C-React Prot High Sens > 15.00 mg/L (1.00-3.00) H 11/07/17 06:00 Total Protein 6.1 g/dL (5.8-8.3) 11/12/17 07:20 Albumin 3.1 g/dL (3.0-4.8) 11/12/17 07:20 Globulin 3.0 gm/dL 11/12/17 07:20 Albumin/Globulin Ratio 1.0 (1.1-1.8) L 11/12/17 07:20 Urine Color Yellow (YELLOW) 11/07/17 17:30 Urine Appearance Clear (CLEAR) 11/07/17 17:30 Urine pH 6.5 (4.7-8.0) 11/07/17 17:30 Ur Specific [place] 1.015 (1.005-1.035) 11/07/17 17:30 Urine Protein 100 mg/dL (<30 mg/dL) H 11/07/17 17:30 Urine Glucose (UA) 100 mg/dL (NEGATIVE) H 11/07/17 17:30 Urine Ketones Negative mg/dL (NEGATIVE) 11/07/17 17:30 Urine Blood Trace-intact (NEGATIVE) H 11/07/17 17:30 Urine Nitrate Negative (NEGATIVE) 11/07/17 17:30 Urine Bilirubin Negative (NEGATIVE) 11/07/17 17:30 Urine Urobilinogen 0.2 E.U./dL (<1 E.U./dL) 11/07/17 17:30 Ur Leukocyte Esterase Negative Bishop/uL (NEGATIVE) 11/07/17 17:30 Urine RBC 1 - 3 /hpf (0-2) 11/07/17 17:30 Urine WBC 0 - 2 /hpf (0-6) 11/07/17 17:30 Ur Epithelial Cells 1 - 3 /hpf (0-5) 11/07/17 17:30 Hyaline Casts 0 - 2 /hpf 11/07/17 17:30 Ur Random Creatinine 56 mg/dL 11/07/17 17:30 Attending/Attestation - Attestation I have personally seen and examined this patient.: Yes I have fully participated in the care of the patient.: Yes I have reviewed all pertinent clinical information, including history, physical exam and plan: Yes Notes (Text): 11/13/17 14:16 Attending note; Patient seen and examined with resident. Patient is a 51-year-old male who presented with left foot cellulitis and left dorsal diabetic foot ulcer and acute osteomyelitis . Currently on IV Zosyn . Needs to complete 6 weeks of antibiotics therapy . Status post PICC line placement . Continue local wound care by podiatry. Wound cultures positive for Enterococcus faecalis and Citrobacter Diversus. MRI of the foot is unable to rule out osteomyelitis. JAILENE ; creatinine is improving .monitor closely . Start JAYLEN inhibitor once creatinine is stabilized . Anemia is chronic. H&H stable. Continue risperidone, Atarax, and Cogentin for history of psychotic disorder. Continue insulin sliding scale and diabetic diet for diabetes. Continue hydralazine and metoprolol for hypertension. Diabetes; continue insulin. Metformin stopped secondary to acute renal insufficiency. Dietary education given. Case was discussed in detail with the patient regarding current diagnosis and treatment plan. Patient will be transferred to rehabilitation today. upon discharge the patient will follow-up with PMD Dr. Moyer.
--- NOTE | 2017-11-12 16:27 | CP.PCM.PN ---
Subjective - Date & Time of Evaluation Date of Evaluation: 11/12/17 Time of Evaluation: 09:30 - Subjective Subjective: No fevers, comfortable in bed, improved foot pain. Objective - Vital Signs/Intake and Output Vital Signs (last 24 hours): Temp Pulse Resp BP Pulse Ox 98.1 F 75 18 165/94 H 98 11/12/17 08:36 11/12/17 14:51 11/12/17 08:36 11/12/17 14:51 11/12/17 08:36 Intake and Output: 11/12/17 11/12/17 06:59 18:59 Intake Total 660 600 Output Total 0 Balance 660 600 - Medications Medications: Current Medications Acetaminophen (Tylenol 325mg Tab) 650 mg PO Q6H PRN PRN Reason: Fever >100.4 F Atorvastatin Calcium (Lipitor) 20 mg PO DAILY [facility] Last Admin: 11/12/17 10:28 Dose: 20 mg Benztropine Mesylate (Cogentin) 0.5 mg PO BID [facility] Last Admin: 11/12/17 10:28 Dose: 0.5 mg Collagenase (Santyl) 0 gm TOP DAILY [facility] Last Admin: 11/12/17 10:29 Dose: 1 applic Heparin Sodium (Porcine) (Heparin) 5,000 units SC Q12 [facility] PRN Reason: Protocol Last Admin: 11/12/17 10:28 Dose: Not Given Hydralazine HCl (Apresoline) 25 mg PO Q8 [facility] Last Admin: 11/12/17 14:51 Dose: 25 mg Hydroxyzine HCl (Atarax) 25 mg PO HS [facility] Last Admin: 11/11/17 21:37 Dose: 25 mg Piperacillin Sod/Tazobactam Sod (Zosyn 2.25 Gm In 0.9% 100 Ml) 2.25 gm in 100 mls @ 100 mls/hr IVPB Q6 [facility] PRN Reason: Protocol Stop: 12/08/17 00:01 Last Admin: 11/12/17 12:39 Dose: 100 mls/hr Insulin Detemir (Levemir) 15 unit SC HS MELVIN Insulin Human Lispro (Humalog) 5 units SC AC MELVIN Insulin Human Lispro (Humalog Low) 0 units SC ACHS [facility] PRN Reason: Protocol Metoprolol Tartrate (Lopressor) 50 mg PO BID [facility] Multivitamins (Thera Tab) 1 tab PO 0800 [facility] Last Admin: 11/12/17 10:28 Dose: 1 tab Ondansetron HCl (Zofran Inj) 4 mg IVP Q4H PRN PRN Reason: Nausea/Vomiting Last Admin: 11/07/17 01:41 Dose: 4 mg Pantoprazole Sodium (Protonix Ec Tab) 40 mg PO 0600 [facility] Last Admin: 11/12/17 06:06 Dose: 40 mg Risperidone (Risperdal Tab) 0.5 mg PO HS [facility] PRN Reason: Protocol Last Admin: 11/11/17 21:37 Dose: 0.5 mg Zinc Sulfate (Zinc Sulfate 220 Mg Cap) 220 mg PO DAILY [facility] Last Admin: 11/12/17 10:28 Dose: 220 mg - Labs Labs: 11/12/17 07:20 11/12/17 07:20 - Constitutional Appears: Non-toxic, Chronically Ill - Head Exam Head Exam: NORMAL INSPECTION - Neck Exam Neck Exam: absent: Meningismus - Respiratory Exam Respiratory Exam: Decreased Breath Sounds - Cardiovascular Exam Cardiovascular Exam: +S1, +S2 - GI/Abdominal Exam GI & Abdominal Exam: Soft. absent: Tenderness - Extremities Exam Additional comments: left foot with dressings in place Assessment and Plan - Assessment and Plan (Free Text) Plan: Assessment Left foot ulcer with cellulitis and osteomyelitis S/P debridement, growing Citrobacter and E. faecalis DM HTN chronic CHF obesity with BMI 31 dyslipidemia history of cataracts Plan Continue Zosyn for 4-6 weeks with weekly ESR, CRP, CBC, CMP with outpatient follow up with Podiatry will monitor clinically
[2017-11-12] MEDS ORDERED: Insulin Lispro (humaLOG) LOW Coverage SC SCH (16:30)
[2017-11-12] MEDS ORDERED: Insulin Lispro 1 UNITS/0.01 ML SC SCH (16:30)
[2017-11-12 17:28] VITALS: BP 140/88; PULSE 78
[2017-11-12] MEDS ORDERED: Insulin Detemir 100 units/ml Vial (Levemir) SC SCH ×2 (22:00)
== END 2017-11-12 18:30 | DRG 565 ==
LOC: ED 19:00 → ERH 21:19 → 3RSO 22:57
PROVIDERS: ADMIT Internal Medicine; ATTEND Internal Medicine
PROC: 0HBNXZZ Excision of Left Foot Skin, External Approach (ICD-10-PCS; principal; 2017-11-07)
PROC: 02HV33Z Insertion of Infusion Device into Superior Vena Cava, Percutaneous Approach (ICD-10-PCS; 2017-11-12)
DX: E11.69 Type 2 diabetes mellitus with other specified complication (principal); M86.172 Other acute osteomyelitis, left ankle and foot; L97.529 Non-pressure chronic ulcer of other part of left foot with unspecified severity; L03.116 Cellulitis of left lower limb; E86.0 Dehydration; I11.0 Hypertensive heart disease with heart failure; E11.621 Type 2 diabetes mellitus with foot ulcer; N17.9 Acute kidney failure, unspecified; I50.22 Chronic systolic (congestive) heart failure; D64.9 Anemia, unspecified; M17.0 Bilateral primary osteoarthritis of knee; E78.5 Hyperlipidemia, unspecified; E11.36 Type 2 diabetes mellitus with diabetic cataract; K21.9 Gastro-esophageal reflux disease without esophagitis; F29 Unspecified psychosis not due to a substance or known physiological condition; E66.9 Obesity, unspecified; Z68.31 Body mass index [BMI] 31.0-31.9, adult; Z87.891 Personal history of nicotine dependence